=== PATIENT | male | born 1935 | race Caucasian/White ===

== ENCOUNTER 2018-07-31 05:48 | Inpatient (IN) | payer MEDICARE, SELFPAY ==
[2018-07-04 09:49] VITALS: BMI 27.8
[2018-07-31] VITALS (22 sets, daily range): BP systolic 116–150; BP diastolic 52–77; PULSE 84–105; RESP 10–18; TEMP 36.4–36.8; O2SAT 90–96; BMI 27.8
--- NOTE | 2018-07-31 | DI.RAD.S_ITS ---
PROCEDURE: XR LUMBAR SPINE 2-3V INDICATIONS: L2-3 , L3-4 TLIF,. TECHNIQUE: 5 intraoperative views of the lumbar spine were acquired. COMPARISON: CT lumbar spine dated 05/28/18. FINDINGS: Bones: 5 [id number] vertebrae are present. There postoperative changes from posterior spinal fusion of L2-3 through L5-S1 with spinal rods and pedicular screws. Interbody graft noted at L4-5 and L5-S1. Interbody spacers are noted at L2-3 and L3-4. Laminectomies of the mid and lower lumbar spine are noted. No evidence for acute compression fractures or suspicious intraosseous lesions. Soft tissues: No suspicious soft tissue abnormalities. IMPRESSION: Status post posterior spinal fusion of L2-3 through L5-S1. Dictated by: Ricki Thomason M.D. on 07/31/2018 at 13:03 Approved by: Ricki Thomason M.D. on 07/31/2018 at 13:09
[2018-07-31] MEDS: LACTATED RINGERS 1,000 ML 42 ML IV ×3 (07:05→12:25)
--- NOTE | 2018-07-31 07:41 | PM.PREOP ---
Pre-operative Note Interval Note History & Physical reviewed/Exam performed by Physician: Yes Changes to H&P: No
[2018-07-31 07:43] LABS: Add Manual Diff / Slide Review NO; Basophils Percent Auto 1.1 % (0-2); Eosinophils Percent Auto 4.9 % (2-4); Hematocrit 32.8 % (41-53); Hemoglobin 11.3 g/dL (13.5-17.5); Lymphocytes Percent Auto 15.6 % (25-40); Mean Corpuscular HGB Conc 34.3 % (30-36); Mean Corpuscular Volume 87.5 fL (80-100); Monocytes Percent Auto 14.6 % (3-14); Neutrophils Absolute Auto 7800 /uL (1500-7000); Neutrophils Percent Auto 63.8 % (50-75); Platelet Count 247 X10^3/uL (150-400); Red Blood Cell Count 3.75 X10^6/uL (4.5-5.9); Red Cell Distribution Width 13.2 % (11.6-14.8); White Blood Cell Count 12.1 X10^3/uL (4.5-11.0)
[2018-07-31] MEDS: CEFAZOLIN 2 GM/100 ML FROZ.PIGGY IV ×3 (08:14→23:28)
--- NOTE | 2018-07-31 08:36 | SUR.OPER ---
Prone on spine table, head in foam head support, padded chest and pelvic supports, gel pad at knees, lower legs supported by pillows; nipples, genitalia and toes free of pressure, arms secured on foam padded arm boards at <90 degrees abduction. Tape over blanket at thigh secured to table.
[2018-07-31] MEDS: BUPIVACAINE 0.25% W/ EPI VIAL 50 ML INJ (08:49)
[2018-07-31] MEDS: BUPIVACAINE LIPOSOME 266 MG/20 ML VIAL INJ (09:28)
[2018-07-31] MEDS: ACETAMINOPHEN IV 1,000 MG/100 ML VIAL 400 MG IV (11:00)
--- NOTE | 2018-07-31 12:15 | P.OP_ITS ---
Operative Date/Time/Diagnoses Date of procedure: 07/31/18 Time of procedure: 08:00 Pre-op diagnosis: 1. Hx of L4-S1 TLIF with pseudoarthrosis 2. L2-S1 spinal stenosis 3. L2-S1 spondylosis with radiculopathy 4. Lumbar scoliosis Post-op diagnosis: same Procedure & Clinicians Procedure: 1. L4-S1 posterior segmental instrumentation removal 2. L2-3, L3-4 transforamenal interbody fusion 3. L2-3, L3-4 interbody cage placement 4. L4-5, L5-S1 posterolateral fusion 5. L2-S1 posterior segmental instrumentation with pedicle screw placement in L2 , L3, L4, L5, S1. 6. L4-5, L5-S1 hemilaminectomy 7. Utilization of microsurgical technique and operating microscope Same procedure as scheduled: Yes Indications: Patient has been having chronic back pain and worsening lumbar radiculopathy. Patient had prior lumbar fusion with instrumentation within the surgeon. Patient did not have significant pain relief since surgery. Patient has been having progressively worsening pain and weakness in his legs. Patient failed multiple conservative management with worsening pain weakness and numbness in her lower extremity. Patient has been having difficulty performing activity of daily living. After discussing risks benefits of treatment options, patient elected proceed with surgery. Surgeon: Alyse Gallo Workers' Compensation Claims Examiner: Izabella Armstrong Click Yes if Unassisted: No Anesthesia Type: General Operative Notes Closure Type: primary Specimen(s): none sent Implants & Drains: Globus revolve screws, Rise cages Applied: catheter Estimated Blood Loss (mL): 400 Blood products transfused: none Procedure in detail: Patient was seen in the preoperative area. Risks and benefits of the surgery was discussed with the patient. Informed consent was obtained from the patient and placed in the chart. Surgical site was marked. Patient was taken to the operative room. General anesthesia was administered. Prophylactic antibiotic was given to the patient less than 30 min before the incision was made. Patient was placed into a prone position on the John table. Patient's back was then prepped and draped in the sterile fashion. Time- out was performed at this time. A paramedian incision was made over the L4-S1 interval on the right side on after marking patient's skin under C-arm guidance. Fascia was incised in line with skin incision. Patient's previously placed hardware over the L4-S1 level was identified by dissecting down to the level the hardware using a Bovie and a Cantrell. The locking caps which was removed using globus screwdriver. The locking isatu was then removed from the tulips of the pedicle screws using a Enzo. The pedicle screws were then removed using the screwdriver. The screws was found to have good purchase. Using AP and lateral C-arm imaging the interval between L2-3, L3-4 was identified and marked on patient's back. A 4 inch incision 2 in from midline was made on the right side first extending from the earlier incision from the hardware removal. The fascia was incised in line with skin incision. Globus MARS retractors was placed inside the incision and docked onto the L2, L3 lamina. Using microsurgical technique and operating microscope, a L2, L3 laminectomy and L2-3, L3-4 facetectomy was performed using a Kerrison rongeur. The disc space at L2-3, L3-4 was identified. And a total diskectomy was performed at L2-3, L3-4 level. The endplates were decorticated using a rasp and shaver. The total diskectomy and decortication was performed at L2-3, L3-4 level in order to to accomplish a L2-3, L3-4 fusion. The local bone from the laminectomy and facetectomy was saved for local bone grafting. After the total diskectomy and decortication was completed, Bio4 bone graft material was combined with local bone that was harvested earlier. At this time, a separate skin is incision was made over the iliac crest. The bone grafting material was placed into the L2-3, L3-4 interbody space along with two cages, one expandable cage at each level. The cages were expanded to their maximum height using the torque limiting screwdriver. Using microsurgical technique and operative microscope a hemilaminectomy was performed L4-5,L5-S1 level by removing the scar tissue, removing additional bone spurs to decompress the neural foramen and lateral recess at L4-5 L5-S1 level. The previous fused level was explored visible motion was identified after the hardware is removed confirming a pseudoarthrosis. Decision was made to perform posterolateral fusion L4-5 L5-S1 level. During the process of performing a hemilaminectomy at L4-5-L5-S1 level a small durotomy was created at L4-5 level. A DuraGen was placed over the durotomy and no CSF was visualized after the DuraGen was placed. At this time a mirror image incision was made on the left side. The hardware was exposed on the left side the same way as the right side. The hardware placed at L4-5 L5-S1 level on the left side was removed using the same technique as the right side using the [employer] screwdrivers. The hardware was removed from the left side without any difficulty. The fascia was incised in line with the skin incision. Globus MARS retractor was inserted and docked onto the L2-3, L3-4, L4-5, L5-S1 posterolateral gutter. Using the power drill, posterior-lateral decortication was performed at L2-3, L3-4,L4-5, L5-S1 level until bleeding cortical bone was identified. The remaining bone grafting material was placed into the L2-3, L3-4,L4-5 L5-S1 posterior lateral gutter he order to accomplish posterolateral fusion at the L2-3, L3-4,L4-5 L5-S1 levels. Using the double C-arm technique, pedicle screws were placed into the L2, L3, L4 , L5, S1 pedicles bilaterally. This was done by placing the Jamshidi needle into the pedicles, then placing the guidewires over the Jamshidi needle, and finally placing the cannulated screws over the guidewires bilaterally. After the pedicle screws were placed, 2 titanium rods was locked into the heads of the pedicle screws using locking caps and torque limiting screwdriver. Total 10 pedicles screws were placed. After all the hardware was placed, and confirmed with AP and lateral C-arm imaging, the wound was then irrigated with sterile normal saline and packed with Ray-Ulices gauze for 3 min to accomplish hemostasis. After the gauze was removed the deep fascia was closed with #1 Vicryl suture. The subcutaneous layer was closed with 2-0 Vicryl. The skin was closed with skin treasure. Patient tolerated the procedure well. There were no complications. Complications: none Condition: stable Disposition: Acute Care Plan for aftercare: Admit to inpatient hospital
--- NOTE | 2018-07-31 12:35 | SUR.PHASEI ---
Pt arrived with nasal trumpet in mouth for airway patency, now out, pt sedated but responding WNL
[2018-07-31] MEDS: MORPHINE 10 MG/ML INJ 4 MG IV ×2 (12:47→12:53)
--- NOTE | 2018-07-31 13:09 | SUR.PHASEI ---
Pt remaining on back per Dr Gallo, feet raised, HOB flat. Pt awakes c/o of 10/10 pain, medicated with morphine, no c/o itchhing. Then goes baclk to sleep, pain down to 7/10 when wakeful, with eyes closed pt is relaxed, RR 10-14.
[2018-07-31] MEDS: MORPHINE 10 MG/ML INJ 2 MG IV (13:15)
--- NOTE | 2018-07-31 13:17 | SUR.PHASEI ---
Report attempted, RN not available for report, to call back when not busy.
--- NOTE | 2018-07-31 13:31 | CM.DANOTE ---
DCP: Case received, EMR reviewed, and white board updated in patient's room with discharge planning number. Patient in surgery at this time, information obtained from , Siddharth, via phone. DCP template completed with information currently available. Patient is an 83 year old male who admitted early this morning to the care of the hospitalist team. PCP: Nataliya Mejia. Payer: confirmed: Medicare/[employer]. Patient came to hospital for surgical procedure. L2-3, L4-5, Sacral, fusion. Patient has had history of low back pain, which has caused right leg weakness. Spoke to , Siddharth, via phone, since patient has been in surgery most of the day. They both live in [place]. She stated that patient is active, she stated, more so than she is. She also stated that patient has had this chronic back pain which has radiated to his leg. Stated that he has not had to use a walker or cane, and has walked independently. Stated that he may need a walker now. Let her know that physical therapy will work with him when stable, and walker can be ordered for him upon discharge if this is what he needs. P: DCP to continue to follow closely. Will have to evaluate how patient does after surgery, and how he is doing with physical therapy team as well, to note if patient will have any needs other than home. Eva Saucedo RN/Pharmaceutical Compounding Supervisor
--- NOTE | 2018-07-31 13:51 | SUR.PHASEI ---
Carol returned call, report given, pt transported up to room 206 on 2/l nasal cannula and left in stable condition.
[2018-07-31] MEDS: SODIUM CHLORIDE 0.9% 1,000 ML 100 ML IV ×2 (14:49→23:28)
--- NOTE | 2018-07-31 15:24 | PC.ADMIT ---
Admission Note: Arrived to room 206 at 1340 via bed from PACU. Drowsy but wakens to voice and is able to answer a few questions before falling back asleep. , Siddharth, at bedside. Dressing to back is C/D/I. Oxygen sats 93-95% on 3L NC, RR 10-14 bpm. Pt laying flat due to dural tear. CMS intact to BLEs. Chronic bermeo in place with clear yellow urine draining. Oriented to room and to call light/tv.bed controls. Bed alarm on. The patient,Edgardo Cotter,83 y/o, was given written information regarding hospital policies, unit procedures and contact persons. Patient's smoking status: Former smoker. Vital Signs - 8 hr 07/31/18 12:09 07/31/18 12:16 07/31/18 12:18 Temperature 98.2 F Pulse Rate 87 87 86 Respiratory Rate 12 12 12 Blood Pressure 133/57 L 116/52 L 120/56 L Pulse Oximetry 92 92 92 07/31/18 12:24 07/31/18 12:29 07/31/18 12:33 Temperature Pulse Rate 87 87 95 H Respiratory Rate 12 11 L 12 Blood Pressure 123/53 L 126/56 L 131/62 Pulse Oximetry 92 92 94 07/31/18 12:44 07/31/18 12:50 07/31/18 12:54 Temperature 98.1 F Pulse Rate 96 H 93 H 93 H Respiratory Rate 14 12 11 L Blood Pressure 148/74 H 125/62 150/77 H Pulse Oximetry 93 93 94 07/31/18 12:59 07/31/18 13:04 07/31/18 13:13 Temperature Pulse Rate 93 H 91 H 96 H Respiratory Rate 10 L 12 12 Blood Pressure 139/64 143/66 H 136/72 Pulse Oximetry 92 94 93 07/31/18 13:15 07/31/18 13:18 07/31/18 13:24 Temperature 98.1 F 98.1 F Pulse Rate 94 H 94 H Respiratory Rate 12 11 L Blood Pressure 138/67 149/71 H Pulse Oximetry 93 94 07/31/18 13:40 07/31/18 14:40 Temperature 97.5 F L Pulse Rate 97 H 98 H Respiratory Rate 14 12 Blood Pressure 144/76 H 118/59 L Pulse Oximetry 95 95
--- NOTE | 2018-07-31 15:48 | PT.IPTN ---
Current Diagnoses Other spondylosis with radiculopathy, lumbar region (07/31/18) Spinal stenosis, lumbar region without neurogenic claudication (07/31/18) Arthrodesis status (07/31/18) Surgery Performed Operation Date: 07/31/18 07:45 Actual Procedures p L2-3,L3-4 TLIF - L4-5,L5-S1 HWR & exploration of fusion, L2-S1 PSF w/Instru - Alyse Gallo MD Operation Date: 07/31/18 07:45 <No data on this case meets the specified criteria> Physical Therapy Treatment Note M3 PT-IP Subjective Start: 07/31/18 15:46 Freq: NEEDED Status: Active Protocol: Document 07/31/18 15:47 AB (Rec: 07/31/18 15:48 AB [id number]) Subjective Physical Therapy Visit Type Notes received PT eval order but pt is not ready for PT at this time. per doctor's order: pt is on bed rest. lay flat until 7am tomorrow. per nurse 's note: pt has a dural tear. will f/u tomorrow.
[2018-07-31] MEDS: OXYCODONE IR 5 MG TABLET 10 MG PO ×3 (16:34→23:27)
[2018-07-31] MEDS: MORPHINE 2 MG/ML INJ 1 MG IV (18:17)
[2018-07-31] MEDS: ATORVASTATIN 20 MG TABLET 40 MG PO (19:53)
[2018-07-31] MEDS: DOCUSATE 100 MG CAPSULE PO (19:53)
[2018-07-31] MEDS: METOPROLOL IR 50 MG TABLET PO (19:53)
[2018-07-31] MEDS: SENNOSIDES 8.6 MG TABLET 17.2 MG PO (19:53)
[2018-07-31] MEDS: VENLAFAXINE 37.5 MG TABLET PO (19:54)
[2018-07-31] MEDS: LOSARTAN 50 MG TABLET PO (19:54)
[2018-07-31] MEDS: LORazepam 1 MG TABLET PO (23:28)
[2018-08-01] VITALS (8 sets, daily range): BP systolic 106–139; BP diastolic 59–70; PULSE 69–112; RESP 14–20; TEMP 36.8–37.2; O2SAT 89–95
[2018-08-01] MEDS: hydrOXYzine pamoate 25 MG CAPSULE PO ×4 (02:22→20:47)
[2018-08-01] MEDS: OXYCODONE IR 5 MG TABLET 10 MG PO ×7 (02:23→23:46)
[2018-08-01 05:49] LABS: Hemoglobin 9.7 g/dL (13.5-17.5)
--- NOTE | 2018-08-01 07:59 | PM.PNPO.1 ---
Subjective Date Patient Seen: 08/01/18 Time Patient Seen: 07:59 Interval history: Hospital day 2, postop day 1 following L4 through S1 hardware removal, L2-3, L3-4 TLIF, L4 through S1 hemilaminectomy and posterior fusion, L2 through S1 posterior screws by Dr. Gallo. Patient did have a dural tear and was to be flat until 0700 today. No headache. Pain controlled with oxycodone and 1 dose MS IV. Patient does have a chronic Andres catheter in place for urine incontinence secondary to prostate cancer. He has not had any physical therapy yet. Exam Vital Signs (past 8 hours): - 08/01/18 00:00 08/01/18 04:58 Temperature 98.3 F 98.4 F Pulse Rate 112 H 100 H Respiratory Rate 20 20 Blood Pressure 127/60 139/70 Pulse Oximetry 95 95 Oxygen Delivery Method Room Air Oxygen Flow Rate 2 Narrative Exam Narrative: Alert, oriented in no acute distress lying in bed. Back. Dressing to lumbar area is dry except central area of serosanguineous drainage. Legs. No calf pain or swelling. Pulses and sensation symmetrical. Objective Labs Result Diagrams: 08/01/18 05:33 Labs: Laboratory Results - last 24 hr 08/01/18 05:33 Hgb 9.7 L Hct 28.0 L Assessment & Plan Post-op (1) Chronic indwelling Andres catheter: Current Visit: Yes Status: Acute Postoperative Procedures Operation Date: 07/31/18 07:45 Actual Procedures Side Surgeon p L2-3,L3-4 TLIF - L4-5,L5-S1 HWR & exploration of fusion, L2-S1 PSF w/Instru Alyse Gallo MD Operation Date: 07/31/18 07:45 <No data on this case meets the specified criteria> patient will be allowed to be up today. He will begin working with physical therapy. Dressing change to lumbar area if needed. I anticipate discharge home in the next 1-2 days if stable. Recheck H&H tomorrow morning. Quality VTE Deep Vein Thrombosis/Pulmonary Embolism Present on Admission: No
[2018-08-01] MEDS: LORazepam 1 MG TABLET PO (08:46)
[2018-08-01] MEDS: DOCUSATE 100 MG CAPSULE PO ×2 (08:47→20:46)
[2018-08-01] MEDS: LOSARTAN 50 MG TABLET PO ×2 (08:47→20:46)
[2018-08-01] MEDS: METOPROLOL IR 50 MG TABLET PO ×2 (08:47→20:46)
[2018-08-01] MEDS: VENLAFAXINE 37.5 MG TABLET PO ×2 (08:47→20:47)
[2018-08-01] MEDS: ACETAMINOPHEN 325 MG TABLET 650 MG PO (08:48)
--- NOTE | 2018-08-01 10:20 | PT.IPTN ---
Current Diagnoses Other spondylosis with radiculopathy, lumbar region (07/31/18) Spinal stenosis, lumbar region without neurogenic claudication (07/31/18) Personal history of other medical treatment (07/31/18) Arthrodesis status (07/31/18) Surgery Performed Operation Date: 07/31/18 07:45 Actual Procedures p L2-3,L3-4 TLIF - L4-5,L5-S1 HWR & exploration of fusion, L2-S1 PSF w/Instru - Alyse Gallo MD Operation Date: 07/31/18 07:45 <No data on this case meets the specified criteria> Physical Therapy Treatment Note M3 PT-IP Subjective Start: 07/31/18 15:46 Freq: NEEDED Status: Active Protocol: Document 08/01/18 10:20 AB (Rec: 08/01/18 12:58 AB [id number]) Subjective Physical Therapy Visit Type Notes talked to nurse regarding pt's protocol for dural tear. nurse stated that they are still transitioning pt with upright positioning and monitoring for symptoms. will check this afternoon.
[2018-08-01] MEDS: MORPHINE 2 MG/ML INJ 1 MG IV (11:26)
--- NOTE | 2018-08-01 11:29 | PC.NURSE ---
Shift note: activity: gradually raising hob from 30 degrees up by 10 degrees every hour. no dizziness, lightheadedness, headache or nausea. does c/o 6-01/29 pain. has been receiving oxycodone, ativan, vistaril, tylenol and morphine for breakthru pain. neuro: a&o x3. states feels a little loopy still. pleasant and cooperative. cms intact. denies numbness or tingling. foot scd pumps on.
[2018-08-01] MEDS: DEXAMETHASONE 4 MG TABLET 10 MG PO (11:57)
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
[2018-08-01] MEDS: DEXAMETHASONE 4 MG TABLET PO (17:01)
--- NOTE | 2018-08-01 18:57 | PC.NURSE ---
Patient's right side dressing to lower back was moderately saturated but was not leaking yet; this RN reinforced right side with gauze and tegaderm. Patient is resting comfortably in bed, BA active, call light in reach.
[2018-08-01] MEDS: ATORVASTATIN 20 MG TABLET 40 MG PO (20:46)
[2018-08-01] MEDS: SODIUM CHLORIDE 0.9% FLUSH 10 ML IV (20:47)
[2018-08-01] MEDS: SENNOSIDES 8.6 MG TABLET 17.2 MG PO (20:47)
[2018-08-02] VITALS (8 sets, daily range): BP systolic 109–143; BP diastolic 47–70; PULSE 67–84; RESP 14–20; TEMP 36.4–37; O2SAT 91–94
[2018-08-02] MEDS: hydrOXYzine pamoate 25 MG CAPSULE PO ×3 (00:39→09:51)
[2018-08-02] MEDS: DEXAMETHASONE 4 MG TABLET PO ×3 (00:40→11:49)
[2018-08-02] MEDS: LORazepam 1 MG TABLET PO (00:45)
[2018-08-02] MEDS: MAG HYDROX/ALUM/SIMETH 30 ML UDC PO ×2 (00:49→15:31)
--- NOTE | 2018-08-02 04:56 | PC.NURSE ---
Pt is A and O x 4, VSS. LS clear, S1, S2. + BTs, eating and drinking. Voiding qs clear layo. Rates pain consistently 6/10, able to sleep.
[2018-08-02] MEDS: OXYCODONE IR 5 MG TABLET 10 MG PO ×4 (05:29→14:51)
[2018-08-02] MEDS: MORPHINE 2 MG/ML INJ 1 MG IV ×2 (05:46→20:45)
[2018-08-02 06:23] LABS: Hematocrit 26.6 % (41-53); Hemoglobin 9.2 g/dL (13.5-17.5)
--- NOTE | 2018-08-02 06:39 | PC.NURSE ---
Called to have chicken boner Dr. Andersen paged re pt's WBC which doubled in last 24 hours to 25K from 12.1K.
[2018-08-02 06:53] LABS: Mean Corpuscular HGB Conc 34.6 % (30-36); Mean Corpuscular Hemoglobin 30.6 PG (26-34); Mean Corpuscular Volume 88.6 fL (80-100); Platelet Count 200 X10^3/uL (150-400); White Blood Cell Count 25.1 X10^3/uL (4.5-11.0)
[2018-08-02 06:55] LABS: Add Manual Diff / Slide Review YES
[2018-08-02 07:00] LABS: Neutrophils Absolute Manual 22339 /uL (3000-5900); Total Cells Counted 100
[2018-08-02 07:01] LABS: RBC Morphology Normal Morphology
[2018-08-02 07:42] LABS: Add Manual Diff / Slide Review NO; Basophils Percent Auto 0.4 % (0-2); Hematocrit 26.6 % (41-53); Hemoglobin 9.1 g/dL (13.5-17.5); Lymphocytes Percent Auto 3.6 % (25-40); Mean Corpuscular HGB Conc 34.1 % (30-36); Mean Corpuscular Hemoglobin 29.9 PG (26-34); Mean Corpuscular Volume 87.7 fL (80-100); Monocytes Percent Auto 8.5 % (3-14); Neutrophils Absolute Auto 21800 /uL (1500-7000); Neutrophils Percent Auto 87.5 % (50-75); Platelet Count 205 X10^3/uL (150-400); Red Blood Cell Count 3.03 X10^6/uL (4.5-5.9)
--- NOTE | 2018-08-02 07:57 | PM.PNPO.1 ---
Subjective Date Patient Seen: 08/02/18 Time Patient Seen: 07:57 Interval history: Hospital day 3, postop day 2 following L4 through S1 HWR, L2-3 L3-4 TLIF, L4 through S1 hemilaminectomy and posterior fusion, L2 through S1 posterior screw fixation with dural leak. Patient has chronic Andres catheter for urine incontinence following prostate surgery. Pain is improved. He was started on dexamethasone yesterday which has helped. Hemoglobin and hematocrit had dropped again today. WBC [id number]. Patient is afebrile. Pain control with oxycodone 10 mg. Has worked with PT/OT and improving. Patient feels tentative about being discharged home today. Exam Vital Signs (past 8 hours): - 08/02/18 00:35 08/02/18 06:15 Temperature 98.3 F 98.2 F Pulse Rate 74 84 Respiratory Rate 16 16 Blood Pressure 109/47 L 133/63 Pulse Oximetry 91 94 Oxygen Delivery Method Room Air Oxygen Flow Rate 0 Narrative Exam Narrative: Alert, oriented no acute distress lying in bed. Back. Dressing to the lumbar area is reinforced and is dry without drainage or inflammation. Legs. No calf pain or swelling. Pulses symmetrical. Good sensation to touch the lower legs. Objective Labs Result Diagrams: 08/02/18 07:30 Labs: Laboratory Results - last 24 hr 08/02/18 08/02/18 06:02 07:30 WBC 25.1 H D 25.0 H RBC 3.00 L 3.03 L Hgb 9.2 L 9.1 L Hct 26.6 L 26.6 L MCV 88.6 87.7 MCH 30.6 29.9 MCHC 34.6 34.1 RDW 13.0 13.0 Plt Count 200 205 Neut % (Auto) Not Reportable 87.5 H Lymph % (Auto) Not Reportable 3.6 L [place] % (Auto) Not Reportable 8.5 Eos % (Auto) Not Reportable 0.0 L Baso % (Auto) Not Reportable 0.4 Neut # (Auto) [id number] H Total Counted 100 Seg Neutrophils % 86.0 H Band Neutrophils % 3.0 Lymphocytes % (Manual) 3.0 L Monocytes % (Manual) 8.0 Neutrophils # (Manual) [id number] H RBC Morphology Normal morphology Assessment & Plan Post-op Postoperative Procedures Operation Date: 07/31/18 07:45 <No data on this case meets the specified criteria> Operation Date: 07/31/18 07:45 Actual Procedures Side Surgeon p L2-3,L3-4 TLIF - L4-5,L5-S1 HWR & exploration of fusion, L2-S1 PSF w/Instru Alyse Gallo MD Plan: Will check CBC this morning to re-evaluate his work WBC and H&H. I think this may be related to his steroid use and postoperative inflammation. He will work with PT more today. Anticipate discharge home tomorrow if he is stable. Quality VTE Deep Vein Thrombosis/Pulmonary Embolism Present on Admission: No
--- NOTE | 2018-08-02 08:01 | P.PN_ITS ---
Subjective Date Patient Seen: 08/02/18 Time Patient Seen: 07:57 Interval history: Hospital day 3, postop day 2 following L4 through S1 HWR, L2- 3 L3-4 TLIF, L4 through S1 hemilaminectomy and posterior fusion, L2 through S1 posterior screw fixation with dural leak. Patient has chronic Andres catheter for urine incontinence following prostate surgery. Pain is improved. He was started on dexamethasone yesterday which has helped. Hemoglobin and hematocrit had dropped again today. WBC [id number]. Patient is afebrile. Pain control with oxycodone 10 mg. Has worked with PT/OT and improving. Patient feels tentative about being discharged home today. Exam Vital Signs (past 8 hours): - 08/02/18 00:35 08/02/18 06:15 Temperature 98.3 F 98.2 F Pulse Rate 74 84 Respiratory Rate 16 16 Blood Pressure 109/47 L 133/63 Pulse Oximetry 91 94 Oxygen Delivery Method Room Air Oxygen Flow Rate 0 Narrative Exam Narrative: Alert, oriented no acute distress lying in bed. Back. Dressing to the lumbar area is reinforced and is dry without drainage or inflammation. Legs. No calf pain or swelling. Pulses symmetrical. Good sensation to touch the lower legs. Objective Labs Result Diagrams: 08/02/18 07:30 Labs: Laboratory Results - last 24 hr 08/02/18 08/02/18 06:02 07:30 WBC 25.1 H D 25.0 H RBC 3.00 L 3.03 L Hgb 9.2 L 9.1 L Hct 26.6 L 26.6 L MCV 88.6 87.7 MCH 30.6 29.9 MCHC 34.6 34.1 RDW 13.0 13.0 Plt Count 200 205 Neut % (Auto) Not Reportable 87.5 H Lymph % (Auto) Not Reportable 3.6 L [place] % (Auto) Not Reportable 8.5 Eos % (Auto) Not Reportable 0.0 L Baso % (Auto) Not Reportable 0.4 Neut # (Auto) [id number] H Total Counted 100 Seg Neutrophils % 86.0 H Band Neutrophils % 3.0 Lymphocytes % (Manual) 3.0 L Monocytes % (Manual) 8.0 Neutrophils # (Manual) [id number] H RBC Morphology Normal morphology Assessment & Plan Post-op Postoperative Procedures Operation Date: 07/31/18 07:45 <No data on this case meets the specified criteria> Operation Date: 07/31/18 07:45 Actual Procedures Side Surgeon p L2-3,L3-4 TLIF - L4-5,L5-S1 HWR & exploration of fusion, L2-S1 PSF w/Instru Alyse Gallo MD Plan: Will check CBC this morning to re-evaluate his work WBC and H&H. I think this may be related to his steroid use and postoperative inflammation. He will work with PT more today. Anticipate discharge home tomorrow if he is stable. Quality VTE Deep Vein Thrombosis/Pulmonary Embolism Present on Admission: No
[2018-08-02] MEDS: LOSARTAN 50 MG TABLET PO (08:38)
[2018-08-02] MEDS: SODIUM CHLORIDE 0.9% FLUSH 10 ML IV ×2 (08:38→21:22)
[2018-08-02] MEDS: hydroCHLOROthiazide 12.5 MG CAPSULE PO (08:38)
[2018-08-02] MEDS: METOPROLOL IR 50 MG TABLET PO (08:38)
[2018-08-02] MEDS: PANTOPRAZOLE 20 MG TABLET PO (08:38)
[2018-08-02] MEDS: VENLAFAXINE 37.5 MG TABLET PO (08:38)
[2018-08-02] MEDS: DOCUSATE 100 MG CAPSULE PO (08:39)
--- NOTE | 2018-08-02 10:28 | PC.NURSE ---
shift note: a&o, rates pain 6/10, able to logroll w/ min assist to sitting position this am. stands easily. transferred to recliner this am for breakfast. tolerated well. drsg w/ scant shadow drainage.
--- NOTE | 2018-08-02 11:25 | PT.IPTN ---
Current Diagnoses Other spondylosis with radiculopathy, lumbar region (07/31/18) Spinal stenosis, lumbar region without neurogenic claudication (07/31/18) Personal history of other medical treatment (07/31/18) Arthrodesis status (07/31/18) Surgery Performed Operation Date: 07/31/18 07:45 <No data on this case meets the specified criteria> Operation Date: 07/31/18 07:45 Actual Procedures p L2-3,L3-4 TLIF - L4-5,L5-S1 HWR & exploration of fusion, L2-S1 PSF w/Instru - Alyse Gallo MD Physical Therapy Treatment Note M2 PT-IP Current Condition Start: 07/31/18 15:46 Freq: NEEDED Status: Active Protocol: Document 08/01/18 13:20 AB (Rec: 08/01/18 15:56 AB [id number]) Physical Therapy Current Condition Current Condition Evaluation Date 08/01/18 Treatment Diagnosis s/p L2-4 TLIF, difficulty in walking Onset Date 07/31/18 Precautions Lumbar Precautions Log Roll No Twisting Limit Bending Lifting Restriction of 10 lbs Gait Belt above Incisional Area M3 PT-IP Subjective Start: 07/31/18 15:46 Freq: NEEDED Status: Active Protocol: Document 08/02/18 11:25 GGD (Rec: 08/02/18 11:57 GGD [email or web address]) Subjective Physical Therapy Visit Type Type Treatment Note Visit Start Time 11:00 Visit Stop Time 11:25 Total Visit Minutes 25 Number of POLITICAL REPORTER Visits 1 Physical Therapy Visit Comments Patient Comments Pt states he is doing better today. Therapy Pain Assessment Pain When Pain Assessed At Rest Pain Present Pain Present Pain Reported Location Lower Back Intensity 6 Scale Used Numeric (1 - 10) Pain Management Techniques Apply Cold Re-positioning Timing of Activity with Medications M4 PT-IP Mobility and Gait Start: 07/31/18 15:46 Freq: NEEDED Status: Active Protocol: Document 08/02/18 11:25 GGD (Rec: 08/02/18 11:57 GGD [email or web address]) PT-Bed Mobility Assessment Rolling Type of Rolling Log Rolling Level of Assist Contact Guard Assistance Supine to Sit Supine to Sit Contact Guard Assistance 1 Person Assistance Bedrails Sit to Supine Sit to Supine Contact Guard Assistance 1 Person Assistance Bedrails Scooting Scooting to Edge of Bed Standby Assistance PT-Transfer Assessment Sit to and From Stand Sit to and from Stand Contact Guard Assistance Use of Upper Extremities Equipment Transfer Assistive Device Gait Belt Front Wheeled Walker Orthotic/Prosthetic Devices or Brace: No Transfers Transfer Destination Bed Transfer Ability Level of Assist Contact Guard Assistance Use of Upper Extremities Gait Assessment Gait Gait Assistance Required: Contact Guard Assist Distance (Feet) 1,000 Able to Maintain Weight Bearing Status Yes During Gait Assistive Devices Assistive Device Gait Belt Front Wheeled Walker Orthotic/Prosthetic Devices or Brace: No Gait Deviations General Gait Pattern Antalgic Decreased Stride Length Decreased Feet Clearance Step-to Gait Factors Limiting Gait Function Factors Limiting Gait Function Decreased Activity Tolerance Decreased Strength Pain M5 PT-IP Objective Assessments Start: 07/31/18 15:46 Freq: NEEDED Status: Active Protocol: Document 08/01/18 13:20 AB (Rec: 08/01/18 15:56 AB [id number]) Orientation Orientation/Cognition Level of Alertness Alert Orientation Name Age Birthday Month Date Year Day of Week Place Situation Gross Range of Motion Lower Extremity ROM Assessment Within Functional Limits Strength Lower Extremity Strength Assessment Left Impaired Hip 3+/5 Knee 3+/5 Sensation Assessment Sensation Gross Sensation WNL M6 PT-IP Treatment Start: 07/31/18 15:46 Freq: NEEDED Status: Active Protocol: Document 08/02/18 11:25 GGD (Rec: 08/02/18 11:57 GGD [email or web address]) Physical Therapy Treatment Education Education Provided Precautions Post-Op Packet M7 PT-IP Assessment and Plan Start: 07/31/18 15:46 Freq: NEEDED Status: Active Protocol: Document 08/02/18 11:25 GGD (Rec: 08/02/18 11:57 GGD [email or web address]) PT Summary Assessment and Plan Summary Assessment Summary Pt improving with mobility. He needed less assist with bed mobility. He was able to progress gait distance with good pain control. He safe for home D/C when medically stable. Frequency of Treatment Frequency Of Treatment Twice a Day Treatment Plan Other Recommendations and Next Treatment ambulation, stair climbing Focus Recommendations To Nursing Amount of Assist Needed 1 Person Assist Discharge Recommendations PT Discharge Recommendations Home with Assistance Equipment Needed for Home Before FWW Discharge
--- NOTE | 2018-08-02 13:50 | PT.IPTN ---
Current Diagnoses Other spondylosis with radiculopathy, lumbar region (07/31/18) Spinal stenosis, lumbar region without neurogenic claudication (07/31/18) Personal history of other medical treatment (07/31/18) Arthrodesis status (07/31/18) Surgery Performed Operation Date: 07/31/18 07:45 <No data on this case meets the specified criteria> Operation Date: 07/31/18 07:45 Actual Procedures p L2-3,L3-4 TLIF - L4-5,L5-S1 HWR & exploration of fusion, L2-S1 PSF w/Instru - Alyse Gallo MD Physical Therapy Treatment Note M2 PT-IP Current Condition Start: 07/31/18 15:46 Freq: NEEDED Status: Active Protocol: Document 08/01/18 13:20 AB (Rec: 08/01/18 15:56 AB [id number]) Physical Therapy Current Condition Current Condition Evaluation Date 08/01/18 Treatment Diagnosis s/p L2-4 TLIF, difficulty in walking Onset Date 07/31/18 Precautions Lumbar Precautions Log Roll No Twisting Limit Bending Lifting Restriction of 10 lbs Gait Belt above Incisional Area M3 PT-IP Subjective Start: 07/31/18 15:46 Freq: NEEDED Status: Active Protocol: Document 08/02/18 13:50 GGD (Rec: 08/02/18 14:16 GGD [email or web address]) Subjective Physical Therapy Visit Type Type Treatment Note Visit Start Time 13:20 Visit Stop Time 13:50 Total Visit Minutes 30 Number of SERVICES DELIVERY DRIVER Visits 2 Physical Therapy Visit Comments Patient Comments Pt states that he would like to walk. Therapy Pain Assessment Pain When Pain Assessed At Rest Pain Present Pain Present Pain Reported Location Lower Back Intensity 4 Scale Used Numeric (1 - 10) Pain Management Techniques Apply Cold Re-positioning Timing of Activity with Medications M4 PT-IP Mobility and Gait Start: 07/31/18 15:46 Freq: NEEDED Status: Active Protocol: Document 08/02/18 13:50 GGD (Rec: 08/02/18 14:16 GGD [email or web address]) PT-Bed Mobility Assessment Rolling Type of Rolling Log Rolling Level of Assist Contact Guard Assistance Supine to Sit Supine to Sit Contact Guard Assistance 1 Person Assistance Bedrails Sit to Supine Sit to Supine Contact Guard Assistance 1 Person Assistance Bedrails Scooting Scooting to Edge of Bed Standby Assistance PT-Transfer Assessment Sit to and From Stand Sit to and from Stand Contact Guard Assistance Use of Upper Extremities Equipment Transfer Assistive Device Gait Belt Front Wheeled Walker Orthotic/Prosthetic Devices or Brace: No Transfers Transfer Destination Bed Transfer Ability Level of Assist Contact Guard Assistance Use of Upper Extremities Gait Assessment Gait Gait Assistance Required: Contact Guard Assist Distance (Feet) 1,000 Able to Maintain Weight Bearing Status Yes During Gait Assistive Devices Assistive Device Gait Belt Front Wheeled Walker Orthotic/Prosthetic Devices or Brace: No Gait Deviations General Gait Pattern Antalgic Decreased Stride Length Decreased Feet Clearance Step-to Gait Factors Limiting Gait Function Factors Limiting Gait Function Decreased Activity Tolerance Decreased Strength Pain Stair Climbing Assessment Evaluation Level of Assist On Stairs Contact Guard Assistance Devices Stair Climbing Assistive Devices Front Wheel Walker Technique/Endurance Stair Climbing Direction Ascend and Descend Stair Climbing Technique Step to Step Number of Steps Climbed 1 Query Text: Stair Climbing Set # Repetitions (reps) 2 Comments Stair Climbing Comments Pt needed min cues. M5 PT-IP Objective Assessments Start: 07/31/18 15:46 Freq: NEEDED Status: Active Protocol: Document 08/01/18 13:20 AB (Rec: 08/01/18 15:56 AB [id number]) Orientation Orientation/Cognition Level of Alertness Alert Orientation Name Age Birthday Month Date Year Day of Week Place Situation Gross Range of Motion Lower Extremity ROM Assessment Within Functional Limits Strength Lower Extremity Strength Assessment Left Impaired Hip 3+/5 Knee 3+/5 Sensation Assessment Sensation Gross Sensation WNL M6 PT-IP Treatment Start: 07/31/18 15:46 Freq: NEEDED Status: Active Protocol: Document 08/02/18 13:50 GGD (Rec: 08/02/18 14:16 GGD [email or web address]) Physical Therapy Treatment Education Education Provided Precautions M7 PT-IP Assessment and Plan Start: 07/31/18 15:46 Freq: NEEDED Status: Active Protocol: Document 08/02/18 13:50 GGD (Rec: 08/02/18 14:16 GGD [email or web address]) PT Summary Assessment and Plan Summary Assessment Summary Pt improving with mobility. He did need cues for full log roll technique. He improved stability with gait with FWW. He needed min cues for stair mobility. He safe for home D/C when medically stable. Frequency of Treatment Frequency Of Treatment Twice a Day Treatment Plan Physical Therapy Treatment Plan Bed Mobility Training Transfer Training Gait Training Therapeutic Exercise Balance Retraining Post Op Education Discharge Planning Hot or Cold Pack Neuromuscular Re-ed Coordination Retraining Manual Therapy Recommendations To Nursing Amount of Assist Needed 1 Person Assist Discharge Recommendations PT Discharge Recommendations Home with Assistance Equipment Needed for Home Before FWW Discharge
--- NOTE | 2018-08-02 14:58 | OT.IP.TRT ---
Current Diagnoses Other spondylosis with radiculopathy, lumbar region (07/31/18) Spinal stenosis, lumbar region without neurogenic claudication (07/31/18) Personal history of other medical treatment (07/31/18) Arthrodesis status (07/31/18) Surgery Performed Operation Date: 07/31/18 07:45 <No data on this case meets the specified criteria> Operation Date: 07/31/18 07:45 Actual Procedures p L2-3,L3-4 TLIF - L4-5,L5-S1 HWR & exploration of fusion, L2-S1 PSF w/Instru - Alyse Gallo MD Occupational Therapy Treatment Note M2 OT-IP Current Condition Start: 08/01/18 14:24 Freq: Status: Active Protocol: Document 08/01/18 14:25 CCC (Rec: 08/01/18 15:09 [facility] [email or web address]) Occupational Therapy Current Condition Current Condition Evaluation Date 08/01/18 Treatment Diagnosis Lumbar stenosis Diagnosis Onset Date 07/31/17 Post Operative Precautions Lumbar Precautions Log Roll No Twisting Limit Bending Lifting Restriction of 10 lbs Gait Belt above Incisional Area Weight Bearing Status Weight Bearing Status Weight Bear as Tolerated M3 OT- IP Subjective and Pain Start: 08/01/18 14:24 Freq: Status: Active Protocol: Document 08/02/18 14:56 CCC (Rec: 08/02/18 14:58 [facility] [id number]) OT- Subjective Occupational Therapy Visit Type Type Patient Refusal Notes Pt states trying to make calls to get FWW and other equipment prior to discharge, therefore not wanting to be seen today for OT treatment. In addition, pt states would rather shower at home. Therefore to touch base with pt tomorrow prior to going home and also touch base with his family for any caregiver training. M4 OT- IP ADL's Start: 08/01/18 14:24 Freq: Status: Active Protocol: Document 08/01/18 14:25 CCC (Rec: 08/01/18 15:09 [facility] [email or web address]) OT ADL-Grooming General Evaluation Grooming Ability Standby Assistance Areas Needing Assistance Retrieving/Set-up of Grooming Items Comments OT Grooming Comments Pt too tired to be able to stand at the sink and therefore had to sonk in the recliner for all his grooming needs. OT ADL-Oral Care General Eval Oral Care Ability Independent OT ADL-Dressing General Eval Lower Body Dressing Ability Maximum Assistance Areas Needing Assistance Socks Comments OT Dressing Comments Pt needing assist for all LB dressing needs at this time. Showed pt AED for LB dressing needs and to practice more tomorrow. OT ADL-Toileting Comments OT Toileting Comments Pt prior use of leg bag at home, therefore will have to assist for catheter needs. M5 OT- IP IADL's Start: 08/01/18 14:24 Freq: Status: Active Protocol: Document 08/01/18 14:25 [facility] (Rec: 08/01/18 15:09 [facility] [email or web address]) OT-Instrumental Activities of Daily Living Medication Management Medication Management Comments Pt states doesn his own medications. Money Management Money Management Comments Pt states does his own. M6 OT- IP Functional Cognition Start: 08/01/18 14:24 Freq: Status: Active Protocol: Document 08/01/18 14:25 [facility] (Rec: 08/01/18 15:09 [facility] [email or web address]) Cognitive Factors Limiting Selfcare Function Cognitive Ability Level of Alertness Alert Patient Orientation Name Place Situation Attention Span Ability Capable of Focused Attention Capable of Sustained Attention Ability to Follow Commands Able to Follow One Step Commands Memory Description Immediate Intact Door Assembler Intact Cognitive Comments Cognitive Assessment Comments Pt able to follow concrete commands, pt able to recall all back precautions, however wanting reconfirmation if he was doing the movement properly. M7 OT- IP Mobility and Balance Start: 08/01/18 14:24 Freq: Status: Active Protocol: Document 08/01/18 14:25 [facility] (Rec: 08/01/18 15:09 [facility] [email or web address]) OT- Bed Mobility Assessment Rolling Type of Rolling Roll to Left Level of Assistance Minimal Assistance Supine to Sit Supine to Sit Assist Minimal Assistance 1 Person Assistance OT-Transfer Assessment Sit to and From Stand Sit to and from Stand Minimal Assistance Transfers Transfer Ability Minimal Assistance Technique Transfer Destination Chair Transfer Technique Stand Step Pivot Devices Transfer Assistive Devices Gait Belt Front Wheeled Walker Comments Mobility Comments Pt a bit shakey when coming to stand and needing SHASHI, vc to push up from the bed to stand with FWW. Per pt shakey due to increased pain. OT- Balance Assessment Sitting Balance and Reactions Static Sitting Balance Ability Normal Dynamic Sitting Balance Ability Normal Standing Balance and Reactions Static Standing Balance Ability Good M8 OT- IP Objective Assessments Start: 08/01/18 14:24 Freq: Status: Active Protocol: Document 08/01/18 14:25 [facility] (Rec: 08/01/18 15:09 [facility] [email or web address]) OT Gross Range of Motion Upper Extremity Range of Motion Assessment Within Functional Limits OT Strength Comments Strength Comments BUE 5/5 M9 OT- IP Assessment and Plan Start: 08/01/18 14:24 Freq: Status: Active Protocol: Document 08/01/18 14:25 [facility] (Rec: 08/01/18 15:09 [facility] [email or web address]) OT Summary Assessment and Plan Potential Rehabilitation Potential Excellent Analytic Complexity at Evaluation Low Summary OT Impairments Balance Functional Cognition Functional Mobility Grooming Dressing Toileting Bathing Toilet Transfers Shower Transfers Progress Towards Goals Progressing Toward Goals Slow Progress due to Pain Assessment Summary Pt Low complexity and main barrier is pain, decreased activity tolerance and now needing assist SHASHI for bed mobility and transfers and assist for ADL's. Pt's not able to do any lifting however able to assist pt at home. Pending progress, pt looking to go home with to assist at this time. Goals Grooming Goal Independent Dressing Goal Minimal Assistance Toileting Goal Minimal Assistance Bathing Goal Minimal Assistance Toilet Transfer Goal Independent Shower Transfer Goal Standby Assistance Patient/Caregiver Education Goal Demonstrate Post-Op Precautions Caregiver Independent Assisting Patient Days to Meet Goals 4 Frequency of Treatment Frequency Of Treatment Once a Day Treatment Plan OT Treatment Plan ADL Training Functional Cognition Training Functional Mobility Patient/Family Education Discharge Planning Other Treatment Recommendations and Next Stand for grooming, practice Treatment Focus AEd for LB dressing Discharge Recommendations OT Discharge Recommendations Home with Assistance Home Equipment Needs shower chair, HHSP, FWW LB AED
--- NOTE | 2018-08-02 15:22 | CM.DPC ---
DCP/ Patient continues to work with PT/OT. Both recommending home with assistance. Patient to redo labs and possible discharge tomorrow. Plan: Home when stable. CM team available as needed.
[2018-08-02] MEDS: BISACODYL 10 MG SUPP PR (18:44)
--- NOTE | 2018-08-02 20:04 | DI.RAD.S_ITS ---
PROCEDURE: XR ACUTE ABDOMEN SERIES INDICATIONS: abd pain, constipation, history of abd issues TECHNIQUE: One view chest and two views of the abdomen were acquired. COMPARISON: None. FINDINGS: Surgical changes and devices: Thoracolumbar fixation and abdominal clips. Chest: Lungs demonstrate mild increased pulmonary vascularity.. Heart size is normal. No pleural effusions. No pneumoperitoneum. Abdomen: Bowel gas pattern demonstrates dilated fluid-filled small bowel loops. Prominent stool is present. No suspicious calcifications. Visualized solid organ contours appear normal. Bones: No suspicious bony lesions. IMPRESSION: Mild to moderate dilation of fluid-filled small bowel loops consistent with partial small bowel obstruction. Moderate stool is present suggestive constipation. Dictated by: Radha Ceron M.D. on 08/02/2018 at 20:58 Approved by: Radha Ceron M.D. on 08/02/2018 at 20:58
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
[2018-08-02] MEDS: BENZOCAINE/MENTHOL 1 LOZ PKT 1 EACH PO (21:39)
[2018-08-02] MEDS: PANTOPRAZOLE 40 MG VIAL IV (21:58)
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
--- NOTE | 2018-08-02 22:47 | PC.NURSE ---
Patient states abd feels painful and bloated, states he feels some heart burn and whenever that happens it mean's he's obstructed; patient has had this happen several times in the past and has had surgery for it. Dr. Armendariz and Dr. Malcolm notified, abd xray done, Yun came in and placed NGT, already emptied 900 ml from canister. Patient given morphine IV and protonix, held all PO meds. Patient states he feels much better and is resting. Patient had a small hard stool before NGT placement, but did not feel better, also reported some nausea. Call light in reach now, BA on.
[2018-08-02] MEDS: LACTATED RINGERS 1,000 ML 75 ML IV (23:39)
[2018-08-03] MEDS: OXYCODONE IR 5 MG TABLET 10 MG PO (01:31)
[2018-08-03] MEDS: PANTOPRAZOLE 20 MG TABLET PO (01:32)
[2018-08-03] MEDS: LORazepam 1 MG TABLET PO (01:32)
[2018-08-03 03:08] VITALS: BP 132/72; PULSE 78; RESP 16; TEMP 36.7; O2SAT 93
[2018-08-03 06:15] LABS: Add Manual Diff / Slide Review NO; Basophils Absolute Auto 0 /uL (0-100); Basophils Percent Auto 0.1 % (0-2); Eosinophils Absolute Auto 0 /uL (0-450); Hematocrit 28.2 % (41-53); Hemoglobin 9.7 g/dL (13.5-17.5); Lymphocytes Absolute Auto 800 /uL (1100-4500); Lymphocytes Percent Auto 3.7 % (25-40); Mean Corpuscular HGB Conc 34.3 % (30-36); Mean Corpuscular Hemoglobin 30.2 PG (26-34); Mean Corpuscular Volume 87.9 fL (80-100); Monocytes Absolute Auto 2700 /uL (0-900); Monocytes Percent Auto 12.4 % (3-14); Neutrophils Absolute Auto 18000 /uL (1500-7000); Neutrophils Percent Auto 83.8 % (50-75); Platelet Count 224 X10^3/uL (150-400); White Blood Cell Count 21.5 X10^3/uL (4.5-11.0)
[2018-08-03] MEDS: MORPHINE 2 MG/ML INJ 1 MG IV (06:17)
[2018-08-03 06:24] LABS: Blood Urea Nitrogen 40 mg/dL (9-20); Calcium 8.9 mg/dL (8.4-10.2); Carbon Dioxide 28 mmol/L (22-32); Chloride 100 mmol/L (98-107); Estimated Glomerular Filt Rate > 60.0 mL/min (>60); Glucose 127 mg/dL (80-110); HEMOLYSIS < 15 (0-50); Potassium 4.5 mmol/L (3.4-5.1); Sodium 137 mmol/L (137-145)
--- NOTE | 2018-08-03 06:28 | PC.NURSE ---
Pt is A and O x 4, VSS. NG put out 900 mLs green viscous gastric and Andres output was 550 mLs clear yellow. Tolerating fluids well. Rates pain 9/10, fair relief from 1 mg IVP MS. LS diminished, intermittent productive cough. S1, S2, + BTs. Pt declines crushed po medications will request IVP in addition, whenever possible. Pt refused q 2 hr turns all shift. Dressing C/D/I.
--- NOTE | 2018-08-03 09:25 | PT.IPTN ---
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, lumbar region without neurogenic claudication (07/31/18) Abdominal distension (gaseous) (07/31/18) Personal history of other medical treatment (07/31/18) Arthrodesis status (07/31/18) Surgery Performed Operation Date: 07/31/18 07:45 <No data on this case meets the specified criteria> Operation Date: 07/31/18 07:45 Actual Procedures p L2-3,L3-4 TLIF - L4-5,L5-S1 HWR & exploration of fusion, L2-S1 PSF w/Instru - Alyse Gallo MD Physical Therapy Treatment Note M2 PT-IP Current Condition Start: 07/31/18 15:46 Freq: NEEDED Status: Active Protocol: Document 08/01/18 13:20 AB (Rec: 08/01/18 15:56 AB [id number]) Physical Therapy Current Condition Current Condition Evaluation Date 08/01/18 Treatment Diagnosis s/p L2-4 TLIF, difficulty in walking Onset Date 07/31/18 Precautions Lumbar Precautions Log Roll No Twisting Limit Bending Lifting Restriction of 10 lbs Gait Belt above Incisional Area M3 PT-IP Subjective Start: 07/31/18 15:46 Freq: NEEDED Status: Active Protocol: Document 08/03/18 09:25 GGD (Rec: 08/03/18 12:32 GGD [id number]) Subjective Physical Therapy Visit Type Type Treatment Note Visit Start Time 08:55 Visit Stop Time 09:25 Number of SOIL ENGINEER Visits 3 Physical Therapy Visit Comments Patient Comments Pt states he having more pain. Therapy Pain Assessment Pain When Pain Assessed At Rest Pain Present Pain Present Pain Reported Location Lower Back Intensity 7 Scale Used Numeric (1 - 10) Pain Management Techniques Re-positioning Timing of Activity with Medications M4 PT-IP Mobility and Gait Start: 07/31/18 15:46 Freq: NEEDED Status: Active Protocol: Document 08/03/18 09:25 GGD (Rec: 08/03/18 12:32 GGD [id number]) PT-Bed Mobility Assessment Rolling Type of Rolling Log Rolling Level of Assist Standby Assistance Supine to Sit Supine to Sit Standby Assistance 1 Person Assistance Bedrails Sit to Supine Sit to Supine Contact Guard Assistance 1 Person Assistance Bedrails Scooting Scooting to Edge of Bed Standby Assistance PT-Transfer Assessment Sit to and From Stand Sit to and from Stand Contact Guard Assistance Use of Upper Extremities Equipment Transfer Assistive Device Gait Belt Front Wheeled Walker Orthotic/Prosthetic Devices or Brace: No Transfers Transfer Destination Bed Transfer Ability Level of Assist Contact Guard Assistance Use of Upper Extremities Gait Assessment Gait Gait Assistance Required: Standby Assistance Distance (Feet) 900 Able to Maintain Weight Bearing Status Yes During Gait Assistive Devices Assistive Device Gait Belt Front Wheeled Walker Orthotic/Prosthetic Devices or Brace: No Gait Deviations General Gait Pattern Antalgic Decreased Stride Length Decreased Feet Clearance Step-to Gait Factors Limiting Gait Function Factors Limiting Gait Function Decreased Activity Tolerance Decreased Strength Pain Stair Climbing Assessment Evaluation Level of Assist On Stairs Contact Guard Assistance Devices Stair Climbing Assistive Devices Front Wheel Walker Technique/Endurance Stair Climbing Direction Ascend and Descend Stair Climbing Technique Step to Step Number of Steps Climbed 1 Query Text: Stair Climbing Set # Repetitions (reps) 1 Comments Stair Climbing Comments Pt needed min cues. M5 PT-IP Objective Assessments Start: 07/31/18 15:46 Freq: NEEDED Status: Active Protocol: Document 08/01/18 13:20 AB (Rec: 08/01/18 15:56 AB [id number]) Orientation Orientation/Cognition Level of Alertness Alert Orientation Name Age Birthday Month Date Year Day of Week Place Situation Gross Range of Motion Lower Extremity ROM Assessment Within Functional Limits Strength Lower Extremity Strength Assessment Left Impaired Hip 3+/5 Knee 3+/5 Sensation Assessment Sensation Gross Sensation WNL M6 PT-IP Treatment Start: 07/31/18 15:46 Freq: NEEDED Status: Active Protocol: Document 08/03/18 09:25 GGD (Rec: 08/03/18 12:32 GGD [id number]) Physical Therapy Treatment Education Education Provided Precautions M7 PT-IP Assessment and Plan Start: 07/31/18 15:46 Freq: NEEDED Status: Active Protocol: Document 08/03/18 09:25 GGD (Rec: 08/03/18 12:32 GGD [id number]) PT Summary Assessment and Plan Summary Assessment Summary Pt had increase in pain with mobility. He need CGA for sit to supine with LE. He needed cues for safe stair mobility. He safe for home D/C when medically stable. Frequency of Treatment Frequency Of Treatment Twice a Day Treatment Plan Physical Therapy Treatment Plan Bed Mobility Training Transfer Training Gait Training Therapeutic Exercise Balance Retraining Post Op Education Discharge Planning Hot or Cold Pack Neuromuscular Re-ed Coordination Retraining Manual Therapy Recommendations To Nursing Amount of Assist Needed 1 Person Assist Discharge Recommendations PT Discharge Recommendations Home with Assistance Equipment Needed for Home Before Pt's is getting a FWW Discharge
[2018-08-03] MEDS: METOPROLOL IR 50 MG TABLET PO (09:34)
[2018-08-03] MEDS: PANTOPRAZOLE 40 MG VIAL IV (09:34)
[2018-08-03] MEDS: hydroCHLOROthiazide 12.5 MG CAPSULE PO (09:34)
[2018-08-03] MEDS: LOSARTAN 50 MG TABLET PO (09:34)
[2018-08-03] MEDS: SODIUM CHLORIDE 0.9% FLUSH 10 ML IV (09:34)
[2018-08-03] MEDS: VENLAFAXINE 37.5 MG TABLET PO ×2 (09:34→20:37)
[2018-08-03] MEDS: DOCUSATE 100 MG CAPSULE PO (09:34)
--- NOTE | 2018-08-03 09:50 | CM.DPC ---
DCP Cont: Per Ortho PA, pt making great progress but developed ileus and needed NG tube placed so not medically stable for d/c yet. Per PT, pt still doing well with ambulation and safe for d/c home. Plan: SW to follow for NG tube status and likely d/c home when medically stable. MAMTA Navarro
--- NOTE | 2018-08-03 10:05 | PM.PNPO.1 ---
Subjective Date Patient Seen: 08/03/18 Time Patient Seen: 10:05 Interval history: Hospital day 4, postop day 3 following L4-5 hardware removal, edilma laminectomy and posterior fusion, L2-3, L3-4 TLIF, L2 through S1 posterior screw fixation and dural tear. Patient was progressing well yesterday and then developed abdominal distention and discomfort. He did have surgical consultation by Dr. Malcolm yesterday. NG tube was placed with 900 mL drainage. Patient's discomfort and distention improved. His lab work noted WBC [id number], H&H 9.2/26.6. He has had difficulty with swallowing his p.o. meds with his NG tube in place. He did have increased pain to his throat and radiating to his left ear after swallowing some of his pills last night. He is asking about changing his medications to IV to avoid swallowing. Exam Vital Signs (past 8 hours): - 08/03/18 03:08 Temperature 98.1 F Pulse Rate 78 Respiratory Rate 16 Blood Pressure 132/72 Pulse Oximetry 93 Oxygen Delivery Method Room Air Oxygen Flow Rate 0 Narrative Exam Narrative: Alert, oriented no acute distress resting in bed. Back. Dressing in place with some shadowing to lumbar area. Abdomen soft with some mild distension and nontender. Legs. No calf pain or swelling. Pulses and sensation symmetrical. Objective Labs Result Diagrams: 08/03/18 05:41 08/03/18 05:41 Labs: Laboratory Results - last 24 hr 08/03/18 08/03/18 05:41 05:41 WBC 21.5 H RBC 3.20 L Hgb 9.7 L Hct 28.2 L MCV 87.9 MCH 30.2 MCHC 34.3 RDW 13.0 Plt Count 224 Neut % (Auto) 83.8 H Lymph % (Auto) 3.7 L [place] % (Auto) 12.4 Eos % (Auto) 0.0 L Baso % (Auto) 0.1 Neut # (Auto) 82279 H Lymph # (Auto) 800 L [place] # (Auto) 2700 H Eos # (Auto) 0 Baso # (Auto) 0 Sodium 137 Potassium 4.5 Chloride 100 Carbon Dioxide 28 BUN 40 H Creatinine 1.00 Estimated GFR > 60.0 BUN/Creatinine Ratio 40.0 H Glucose 127 H Calcium 8.9 Magnesium 2.0 Assessment & Plan Post-op (1) Abdominal distension: Current Visit: Yes Status: Acute (2) Ileus, postoperative: Current Visit: Yes Status: Acute Postoperative Procedures Operation Date: 07/31/18 07:45 <No data on this case meets the specified criteria> Operation Date: 07/31/18 07:45 Actual Procedures Side Surgeon p L2-3,L3-4 TLIF - L4-5,L5-S1 HWR & exploration of fusion, L2-S1 PSF w/Instru Alyse Gallo MD Plan: Changed his oral oxycodone from a tablet to suspension. Also changed PO lorazepam to IV. Will have the hospitalist see the patient to evaluate other meds as needed [place] has NG in place. Dr. Malcolm to follow for his ileus. Patient has progressed well with physical therapy and orthopedically stable. Anticipate discharge to home once he is cleared by surgeon and hospitalist. Recheck hemogram in the morning. Quality VTE Deep Vein Thrombosis/Pulmonary Embolism Present on Admission: No
--- NOTE | 2018-08-03 10:13 | P.PN_ITS ---
Subjective Date Patient Seen: 08/03/18 Time Patient Seen: 10:05 Interval history: Hospital day 4, postop day 3 following L4-5 hardware removal, edilma laminectomy and posterior fusion, L2-3, L3-4 TLIF, L2 through S1 posterior screw fixation and dural tear. Patient was progressing well yesterday and then developed abdominal distention and discomfort. He did have surgical consultation by Dr. Malcolm yesterday. NG tube was placed with 900 mL drainage. Patient's discomfort and distention improved. His lab work noted WBC 00920, H&H 9.2/26.6. He has had difficulty with swallowing his p.o. meds with his NG tube in place. He did have increased pain to his throat and radiating to his left ear after swallowing some of his pills last night. He is asking about changing his medications to IV to avoid swallowing. Exam Vital Signs (past 8 hours): - 08/03/18 03:08 Temperature 98.1 F Pulse Rate 78 Respiratory Rate 16 Blood Pressure 132/72 Pulse Oximetry 93 Oxygen Delivery Method Room Air Oxygen Flow Rate 0 Narrative Exam Narrative: Alert, oriented no acute distress resting in bed. Back. Dressing in place with some shadowing to lumbar area. Abdomen soft with some mild distension and nontender. Legs. No calf pain or swelling. Pulses and sensation symmetrical. Objective Labs Result Diagrams: 08/03/18 05:41 08/03/18 05:41 Labs: Laboratory Results - last 24 hr 08/03/18 08/03/18 05:41 05:41 WBC 21.5 H RBC 3.20 L Hgb 9.7 L Hct 28.2 L MCV 87.9 MCH 30.2 MCHC 34.3 RDW 13.0 Plt Count 224 Neut % (Auto) 83.8 H Lymph % (Auto) 3.7 L [place] % (Auto) 12.4 Eos % (Auto) 0.0 L Baso % (Auto) 0.1 Neut # (Auto) 10548 H Lymph # (Auto) 800 L [place] # (Auto) 2700 H Eos # (Auto) 0 Baso # (Auto) 0 Sodium 137 Potassium 4.5 Chloride 100 Carbon Dioxide 28 BUN 40 H Creatinine 1.00 Estimated GFR > 60.0 BUN/Creatinine Ratio 40.0 H Glucose 127 H Calcium 8.9 Magnesium 2.0 Assessment & Plan Post-op (1) Abdominal distension: Current Visit: Yes Status: Acute (2) Ileus, postoperative: Current Visit: Yes Status: Acute Postoperative Procedures Operation Date: 07/31/18 07:45 <No data on this case meets the specified criteria> Operation Date: 07/31/18 07:45 Actual Procedures Side Surgeon p L2-3,L3-4 TLIF - L4-5,L5-S1 HWR & exploration of fusion, L2-S1 PSF w/Instru Alyse Gallo MD Plan: Changed his oral oxycodone from a tablet to suspension. Also changed PO lorazepam to IV. Will have the hospitalist see the patient to evaluate other meds as needed valley has NG in place. Dr. Malcolm to follow for his ileus. Patient has progressed well with physical therapy and orthopedically stable. Anticipate discharge to home once he is cleared by surgeon and hospitalist. Recheck hemogram in the morning. Quality VTE Deep Vein Thrombosis/Pulmonary Embolism Present on Admission: No
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
[2018-08-03 11:38] VITALS: BP 131/63; PULSE 76; RESP 20; TEMP 36.7; O2SAT 92
--- NOTE | 2018-08-03 11:55 | OT.IP.TRT ---
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, lumbar region without neurogenic claudication (07/31/18) Abdominal distension (gaseous) (07/31/18) Personal history of other medical treatment (07/31/18) Arthrodesis status (07/31/18) Surgery Performed Operation Date: 07/31/18 07:45 <No data on this case meets the specified criteria> Operation Date: 07/31/18 07:45 Actual Procedures p L2-3,L3-4 TLIF - L4-5,L5-S1 HWR & exploration of fusion, L2-S1 PSF w/Instru - Alyse Gallo MD Occupational Therapy Treatment Note M2 OT-IP Current Condition Start: 08/01/18 14:24 Freq: Status: Active Protocol: Document 08/01/18 14:25 [facility] (Rec: 08/01/18 15:09 [facility] [id number]) Occupational Therapy Current Condition Current Condition Evaluation Date 08/01/18 Treatment Diagnosis Lumbar stenosis Diagnosis Onset Date 07/31/17 Post Operative Precautions Lumbar Precautions Log Roll No Twisting Limit Bending Lifting Restriction of 10 lbs Gait Belt above Incisional Area Weight Bearing Status Weight Bearing Status Weight Bear as Tolerated M3 OT- IP Subjective and Pain Start: 08/01/18 14:24 Freq: Status: Active Protocol: Document 08/03/18 11:44 [facility] (Rec: 08/03/18 11:55 [facility] [id number]) OT- Subjective Occupational Therapy Visit Type Type Treatment Note Visit Start Time 10:45 Visit Stop Time 11:00 Total Visit Minutes 15 Occupational Therapy Visit Comments Patient Comments Pt not wanting to get out of bed and insisting will shower at home. Pt a bit down due to now having NG tube in place. M4 OT- IP ADL's Start: 08/01/18 14:24 Freq: Status: Active Protocol: Document 08/03/18 11:44 [facility] (Rec: 08/03/18 11:55 [facility] [id number]) OT ADL-Dressing General Eval Lower Body Dressing Ability Minimal Assistance Maximum Assistance Areas Needing Assistance Retrieving/Set-up of Clothing Underpants/Brief Pants/Shorts Socks Comments OT Dressing Comments Educated pt on use of LB AEd and pt able to try donning socks while in bed as pt did not want to get up. M5 OT- IP IADL's Start: 08/01/18 14:24 Freq: Status: Active Protocol: Document 08/01/18 14:25 [facility] (Rec: 08/01/18 15:09 [facility] [id number]) OT-Instrumental Activities of Daily Living Medication Management Medication Management Comments Pt states does his own medications. Money Management Money Management Comments Pt states does his own. M6 OT- IP Functional Cognition Start: 08/01/18 14:24 Freq: Status: Active Protocol: Document 08/03/18 11:44 [facility] (Rec: 08/03/18 11:55 [facility] [id number]) Cognitive Factors Limiting Selfcare Function Cognitive Ability Level of Alertness Alert Patient Orientation Name Age Birthday Month Date Year Day of Week Place Situation Attention Span Ability Capable of Focused Attention Capable of Sustained Attention Ability to Follow Commands Able to Follow Multi-Step Commands Memory Description No Deficits Noted Cognitive Comments Cognitive Assessment Comments Pt following directions well. M7 OT- IP Mobility and Balance Start: 08/01/18 14:24 Freq: Status: Active Protocol: Document 08/01/18 14:25 [facility] (Rec: 08/01/18 15:09 [facility] [id number]) OT- Bed Mobility Assessment Rolling Type of Rolling Roll to Left Level of Assistance Minimal Assistance Supine to Sit Supine to Sit Assist Minimal Assistance 1 Person Assistance OT-Transfer Assessment Sit to and From Stand Sit to and from Stand Minimal Assistance Transfers Transfer Ability Minimal Assistance Technique Transfer Destination Chair Transfer Technique Stand Step Pivot Devices Transfer Assistive Devices Gait Belt Front Wheeled Walker Comments Mobility Comments Pt a bit shaky when coming to stand and needing SHASHI, vc to push up from the bed to stand with FWW. Per pt shaky due to increased pain. OT- Balance Assessment Sitting Balance and Reactions Static Sitting Balance Ability Normal Dynamic Sitting Balance Ability Normal Standing Balance and Reactions Static Standing Balance Ability Good M8 OT- IP Objective Assessments Start: 08/01/18 14:24 Freq: Status: Active Protocol: Document 08/01/18 14:25 [facility] (Rec: 08/01/18 15:09 [facility] [id number]) OT Gross Range of Motion Upper Extremity Range of Motion Assessment Within Functional Limits OT Strength Comments Strength Comments BUE 5/5 M9 OT- IP Assessment and Plan Start: 08/01/18 14:24 Freq: Status: Active Protocol: Document 08/03/18 11:44 [facility] (Rec: 08/03/18 11:55 [facility] [id number]) OT Summary Assessment and Plan Potential Rehabilitation Potential Good Analytic Complexity at Evaluation Low Summary OT Impairments Pain Functional Mobility Grooming Dressing Toileting Bathing Progress Towards Goals Progressing Toward Goals Slow Progress due to Medical Issues Assessment Summary Pt low complexity and has medical need of NG tube. Otherwise pt doing well for back surgery needs. Pt to go home when medically stable and to assist. Goals Grooming Goal Independent Dressing Goal Standby Assistance Toileting Goal Standby Assistance Bathing Goal Minimal Assistance Toilet Transfer Goal Independent Shower Transfer Goal Standby Assistance Patient/Caregiver Education Goal Demonstrate Post-Op Precautions Caregiver Independent Assisting Patient Days to Meet Goals 5 Frequency of Treatment Frequency Of Treatment Once a Day Treatment Plan OT Treatment Plan ADL Training Functional Cognition Training Functional Mobility Patient/Family Education Discharge Planning Other Treatment Recommendations and Next shower Treatment Focus Discharge Recommendations OT Discharge Recommendations Home with Assistance Home Equipment Needs shower chair, HHSP, FWW LB AED
[2018-08-03] MEDS: LACTATED RINGERS 1,000 ML 75 ML IV (14:09)
[2018-08-03] MEDS: OCTREOTIDE 100 MCG/ML VIAL 50 MCG SUBCUT (14:21)
[2018-08-03 15:50] VITALS: BP 159/59; PULSE 81; RESP 18; TEMP 36.8; O2SAT 97
--- NOTE | 2018-08-03 17:03 | PM.PN.1 ---
Subjective Date Patient Seen: 08/03/18 Time Patient Seen: 17:03 Interval history: Mr. Cotter is in reasonable spirits today. He reports that he continues to have abdominal discomfort and he has a difficult time telling me exactly where it is from. Some is definitely from his back and and some definitely from his abdomen. He wonders if oak male that he ate on the day prior to this had anything to do with his obstruction. 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 He denies any nausea. He is frustrated about some delays in his pain medication administration. He would like to know how many days we think he will be in the hospital. Exam Vital Signs (past 8 hours): - 08/03/18 11:38 08/03/18 15:50 Temperature 98.1 F 98.3 F Pulse Rate 76 81 Respiratory Rate 20 18 Blood Pressure 131/63 159/59 H Pulse Oximetry 92 97 Oxygen Delivery Method Room Air Oxygen Flow Rate 0 Narrative Exam Narrative: Abdomen is distended and quite tympanic to percussion. Globally and diffusely tender to palpation. Very few tinkling bowel tones. NG is currently clamped. The patient has the hiccups as well. Objective Labs Result Diagrams: 08/03/18 05:41 08/03/18 05:41 Labs: Laboratory Results - last 24 hr 08/03/18 08/03/18 05:41 05:41 WBC 21.5 H RBC 3.20 L Hgb 9.7 L Hct 28.2 L MCV 87.9 MCH 30.2 MCHC 34.3 RDW 13.0 Plt Count 224 Neut % (Auto) 83.8 H Lymph % (Auto) 3.7 L [place] % (Auto) 12.4 Eos % (Auto) 0.0 L Baso % (Auto) 0.1 Neut # (Auto) 82238 H Lymph # (Auto) 800 L [place] # (Auto) 2700 H Eos # (Auto) 0 Baso # (Auto) 0 Sodium 137 Potassium 4.5 Chloride 100 Carbon Dioxide 28 BUN 40 H Creatinine 1.00 Estimated GFR > 60.0 BUN/Creatinine Ratio 40.0 H Glucose 127 H Calcium 8.9 Magnesium 2.0 Assessment & Plan Plan: Assessment/Plan Narrative: I agree with Dr. Malcolm assessment that this is very likely an ileus. This would certainly be preferable to a bowel obstruction. I agree with plans to stop all oral medication with the exception of venlafaxine. Serotonin syndrome would only confuse the clinical picture. Hopefully enough will be absorbed to keep him out of that predicament. I will start a morphine PREP COOK for better pain control. Will also add low-dose Reglan. Serial abdominal exams and careful watchful waiting. Quality VTE Deep Vein Thrombosis/Pulmonary Embolism Present on Admission: No
--- NOTE | 2018-08-03 17:06 | P.PN_ITS ---
Subjective Date Patient Seen: 08/03/18 Time Patient Seen: 17:03 Interval history: Mr. Cotter is in reasonable spirits today. He reports that he continues to have abdominal discomfort and he has a difficult time telling me exactly where it is from. Some is definitely from his back and and some definitely from his abdomen. He wonders if oak male that he ate on the day prior to this had anything to do with his obstruction. 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 He denies any nausea. He is frustrated about some delays in his pain medication administration. He would like to know how many days we think he will be in the hospital. Exam Vital Signs (past 8 hours): - 08/03/18 11:38 08/03/18 15:50 Temperature 98.1 F 98.3 F Pulse Rate 76 81 Respiratory Rate 20 18 Blood Pressure 131/63 159/59 H Pulse Oximetry 92 97 Oxygen Delivery Method Room Air Oxygen Flow Rate 0 Narrative Exam Narrative: Abdomen is distended and quite tympanic to percussion. Globally and diffusely tender to palpation. Very few tinkling bowel tones. NG is currently clamped. The patient has the hiccups as well. Objective Labs Result Diagrams: 08/03/18 05:41 08/03/18 05:41 Labs: Laboratory Results - last 24 hr 08/03/18 08/03/18 05:41 05:41 WBC 21.5 H RBC 3.20 L Hgb 9.7 L Hct 28.2 L MCV 87.9 MCH 30.2 MCHC 34.3 RDW 13.0 Plt Count 224 Neut % (Auto) 83.8 H Lymph % (Auto) 3.7 L [place] % (Auto) 12.4 Eos % (Auto) 0.0 L Baso % (Auto) 0.1 Neut # (Auto) 72174 H Lymph # (Auto) 800 L [place] # (Auto) 2700 H Eos # (Auto) 0 Baso # (Auto) 0 Sodium 137 Potassium 4.5 Chloride 100 Carbon Dioxide 28 BUN 40 H Creatinine 1.00 Estimated GFR > 60.0 BUN/Creatinine Ratio 40.0 H Glucose 127 H Calcium 8.9 Magnesium 2.0 Assessment & Plan Plan: Assessment/Plan Narrative: I agree with Dr. Malcolm assessment that this is very likely an ileus. This would certainly be preferable to a bowel obstruction. I agree with plans to stop all oral medication with the exception of venlafaxine. Serotonin syndrome would only confuse the clinical picture. Hopefully enough will be absorbed to keep him out of that predicament. I will start a morphine ORDNANCE OFFICER for better pain control. Will also add low-dose Reglan. Serial abdominal exams and careful watchful waiting. Quality VTE Deep Vein Thrombosis/Pulmonary Embolism Present on Admission: No
[2018-08-03 20:16] VITALS: BP 128/71; PULSE 75; RESP 18; TEMP 36.9; O2SAT 94
[2018-08-03] MEDS: TETRACAINE/BENZOCAINE/BUTAMBEN (CETACAINE) BOTTLE 1 SPRAY TOP (20:33)
[2018-08-03] MEDS: BENZOCAINE/MENTHOL 1 LOZ PKT 1 EACH PO (20:36)
[2018-08-03] MEDS: MORPHINE PCA 30 MG/30 ML PCA.VIAL IV (21:42)
[2018-08-03 23:29] VITALS: BP 125/55; PULSE 81; RESP 15; TEMP 37; O2SAT 92
[2018-08-03] MEDS: LORazepam 2 MG/ML SYRINGE 0.5 MG IV (23:36)
[2018-08-04] MEDS: BENZOCAINE/MENTHOL 1 LOZ PKT 1 EACH PO ×2 (03:07→21:18)
[2018-08-04] MEDS: TETRACAINE/BENZOCAINE/BUTAMBEN (CETACAINE) BOTTLE 1 SPRAY TOP ×3 (03:08→21:19)
[2018-08-04 04:10] VITALS: BP 119/54; PULSE 87; RESP 16; TEMP 36.9; O2SAT 92
[2018-08-04] MEDS: LACTATED RINGERS 1,000 ML 75 ML IV ×2 (04:57→17:35)
[2018-08-04 05:49] LABS: Add Manual Diff / Slide Review NO; Basophils Absolute Auto 0 /uL (0-100); Basophils Percent Auto 0.2 % (0-2); Eosinophils Absolute Auto 100 /uL (0-450); Eosinophils Percent Auto 1.1 % (2-4); Hematocrit 27.8 % (41-53); Hemoglobin 9.5 g/dL (13.5-17.5); Lymphocytes Absolute Auto 1000 /uL (1100-4500); Lymphocytes Percent Auto 8.4 % (25-40); Mean Corpuscular HGB Conc 34.1 % (30-36); Mean Corpuscular Hemoglobin 30.3 PG (26-34); Mean Corpuscular Volume 88.8 fL (80-100); Monocytes Absolute Auto 1800 /uL (0-900); Monocytes Percent Auto 14.7 % (3-14); Neutrophils Absolute Auto 9200 /uL (1500-7000); Neutrophils Percent Auto 75.6 % (50-75); Platelet Count 245 X10^3/uL (150-400); Red Blood Cell Count 3.13 X10^6/uL (4.5-5.9); Red Cell Distribution Width 12.8 % (11.6-14.8); White Blood Cell Count 12.1 X10^3/uL (4.5-11.0)
[2018-08-04] MEDS: MORPHINE PCA 30 MG/30 ML PCA.VIAL IV ×3 (05:58→21:19)
[2018-08-04 06:00] LABS: BUN Creatinine Ratio 37.3 (6-22); Blood Urea Nitrogen 41 mg/dL (9-20); Calcium 8.8 mg/dL (8.4-10.2); Carbon Dioxide 33 mmol/L (22-32); Chloride 99 mmol/L (98-107); Estimated Glomerular Filt Rate > 60.0 mL/min (>60); Glucose 111 mg/dL (80-110); HEMOLYSIS < 15 (0-50); Potassium 4.4 mmol/L (3.4-5.1); Sodium 140 mmol/L (137-145)
[2018-08-04 07:15] VITALS: BP 136/69; PULSE 84; RESP 20; TEMP 36.8; O2SAT 90
[2018-08-04] MEDS: PANTOPRAZOLE 40 MG VIAL IV (09:14)
[2018-08-04] MEDS: OCTREOTIDE 100 MCG/ML VIAL 50 MCG SUBCUT ×3 (09:14→21:18)
[2018-08-04] MEDS: VENLAFAXINE 37.5 MG TABLET PO ×2 (09:15→21:18)
[2018-08-04] MEDS: SODIUM CHLORIDE 0.9% FLUSH 10 ML IV (09:15)
--- NOTE | 2018-08-04 09:26 | P.PN_ITS ---
Subjective Date Patient Seen: 08/04/18 Time Patient Seen: 09:22 Interval history: Patient continues to make progress with ambulation. He is very frustrated as he notes that the back of his throat is very sore. His back pain is well-controlled. He has no leg pain. He does not note numbness or weakness in the legs. Exam Vital Signs (past 8 hours): - 08/04/18 04:10 08/04/18 07:15 Temperature 98.4 F 98.2 F Pulse Rate 87 84 Respiratory Rate 16 20 Blood Pressure 119/54 L 136/69 Pulse Oximetry 92 90 L Oxygen Delivery Method Room Air Oxygen Flow Rate 0 Narrative Exam Narrative: Alert and oriented, in less distress than yesterday, abdomen distended but improved bowel sounds in comparison to yesterday. Dressings dry on his lumbar spine, calf soft bilaterally, normal motor strength in bilateral lower extremities Objective Labs Result Diagrams: 08/04/18 05:39 08/04/18 05:39 Labs: Laboratory Results - last 24 hr 08/04/18 08/04/18 05:39 05:39 WBC 12.1 H RBC 3.13 L Hgb 9.5 L Hct 27.8 L MCV 88.8 MCH 30.3 MCHC 34.1 RDW 12.8 Plt Count 245 Neut % (Auto) 75.6 H Lymph % (Auto) 8.4 L [place] % (Auto) 14.7 H Eos % (Auto) 1.1 L Baso % (Auto) 0.2 Neut # (Auto) 9200 H Lymph # (Auto) 1000 L [place] # (Auto) 1800 H Eos # (Auto) 100 Baso # (Auto) 0 Sodium 140 Potassium 4.4 Chloride 99 Carbon Dioxide 33 H BUN 41 H Creatinine 1.10 Estimated GFR > 60.0 BUN/Creatinine Ratio 37.3 H Glucose 111 H Calcium 8.8 Assessment & Plan Plan: Assessment/Plan Narrative: Bowel obstruction after lumbar spine surgery. Improving with an NG tube. Appreciate consultations from medicine and General surgery. His white blood cell count is markedly improved in comparison to yesterday. He does not have a headache and continues to be afebrile. Continue with NG tube and there is a discussion about starting TPN today. Encouraged the patient to continue to ambulate in the bertrand as tolerated. We will attempt to minimize narcotic pain medications in order to improve his overall bowel function. Discharge when bowels are working adequately. Quality VTE Deep Vein Thrombosis/Pulmonary Embolism Present on Admission: No
--- NOTE | 2018-08-04 11:01 | PC.NURSE ---
Pt's NG tube has been found pulled out at approx. 0930. Pt reports It fell out. Sticker to nose intact. Pt has been relieved of copious amounts of flatus after sitting on the toilet for a short time. He denies pain and has asked to look at the hospital food menu. Pt has been asking when he will be able to eat and drink. He was educated to the process of SBO and typical course of treatment. Pt was assured the doctor would be in soon to see him soon and explain further. Pt expressed multiple times that this was like being in skilled nursing. This nurse explained that we were just trying to help him and not make him upset. He was reminded multiple times that it was his right to refuse treatment and leave the hospital if he wished, against medical advice. Pt reported that if he didn't see the doctor soon, he would rip his IV out and leave. A short time later, the patient asked to have his belongings and for his IV to be removed. Pt left the hospital after signing AMA paperwork at approx. 11:15
--- NOTE | 2018-08-04 11:51 | PM.PN.1 ---
Subjective Date Patient Seen: 08/04/18 Time Patient Seen: 11:53 Interval history: Mr. Cotter is doing better today. He is seen to follow-up his ileus, coronary artery disease, diminished p.o. intake, lumbar spine fusion postoperative complications. The white blood count is 12.1 with a hemoglobin of 9.5. The BMP is normal with a BUN of 41 and creatinine of 1.1. The blood pressure is 119/54 with a pulse of 87. 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 His main complaint is throat soreness from the NG tube irritation. On exam of the throat there is no obvious thrush. The NG tube on the left side of the pharynx is obviously the cause. Exam Vital Signs (past 8 hours): - 08/04/18 04:10 08/04/18 07:15 Temperature 98.4 F 98.2 F Pulse Rate 87 84 Respiratory Rate 16 20 Blood Pressure 119/54 L 136/69 Pulse Oximetry 92 90 L Oxygen Delivery Method Room Air Oxygen Flow Rate 0 Narrative Exam Narrative: He is alert and oriented x3 without apparent distress. Heart is regular rate and rhythm without murmur. Lungs are clear to auscultation bilaterally. Abdomen is soft, bowel sounds are positive, increasing since yesterday, he is not tender. There is a small supraumbilical incisional hernia, easily reducible. Extremities no ankle edema. Objective Labs Result Diagrams: 08/04/18 05:39 08/04/18 05:39 Labs: Laboratory Results - last 24 hr 08/04/18 08/04/18 05:39 05:39 WBC 12.1 H RBC 3.13 L Hgb 9.5 L Hct 27.8 L MCV 88.8 MCH 30.3 MCHC 34.1 RDW 12.8 Plt Count 245 Neut % (Auto) 75.6 H Lymph % (Auto) 8.4 L [place] % (Auto) 14.7 H Eos % (Auto) 1.1 L Baso % (Auto) 0.2 Neut # (Auto) 9200 H Lymph # (Auto) 1000 L [place] # (Auto) 1800 H Eos # (Auto) 100 Baso # (Auto) 0 Sodium 140 Potassium 4.4 Chloride 99 Carbon Dioxide 33 H BUN 41 H Creatinine 1.10 Estimated GFR > 60.0 BUN/Creatinine Ratio 37.3 H Glucose 111 H Calcium 8.8 Assessment & Plan Plan: Assessment/Plan Narrative: 1. Ileus - Improving post op ileus vs. possible obstruction secondary to adhesions from previous surgeries. - NG tube in place and still draining bile. - octreotide appears to be successfully decreasing GI secretions and increasing resorption to help with comfort and passage of stool - General surgery is already following and is considering initiating TPN today. At this point he is on less than maintenance fluid rates with mild pre renal status seen on the BUN and creatinine testing. If not started on TPN then the fluid rate will need to be increased today. 2. laryngospasm - consider reactive laryngospasm due to irritation of abdominal content distension/NG tube diaphragm irritation. - consider Baclofen or haldol for spasm relief if no spontaneous relief 08/04/18. The symptoms seem to be quite variable. - oral, pill medications have been switched to equivalent IV or liquid form (see below) - Will consider switching back to oral after NG tube is discontinued. 3. Spinal surgery - defer to orthopedic notes for postoperative observation. Discussed with Dr. Armendariz today. 4. Leukocytosis - WBC has fallen from 25 to 21.5 to 12.1. As mentioned in previoua notes, the leukocytosis is likely due to steroid addition and not an infectious process or dural leak. 5. 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 Will continue IV prn. 7. CAD - discontinue and hold losartan, atorvostatin, HCTZ PO - Ordered IV Labetalol and hydralazine prn while NPO 8. HTN - discontinue HCTZ and losartan PO - ordered labetalol and hydralazine as IV equivalents 9. Hyperlipedemia - discontinue atorvostatin PO 10. GERD - continue with protonix IV Quality VTE Deep Vein Thrombosis/Pulmonary Embolism Present on Admission: No
--- NOTE | 2018-08-04 11:53 | PC.NURSE ---
Addendum entered by Berenice Stahl R.N. 08/04/18 13:42: Pt has asked to sit on the toilet and has passed more flatus. Original Note: Pt has been given his venlafaxine crushed and had his NG tube suction stopped for one hour this morning. During this time he walked around the nurses station with PT and was then assisted with a bed bath and catheter care. Pt tired quickly with these activities. Pt has been placed on 2L 02 via nasal cannula as his O2 saturations are in the mid 80's while he rests in bed with his eyes closed. O2 saturation is in the mid 90's with O2 delivery. LS are clear, he is encouraged to cough and deep breathe. He reports pain as mild 2-3/10 to his back and abdm at rest, with pain increasing to 4/10 with palpation. BT are present and pt reports he is passing small amt of flatus. 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
--- NOTE | 2018-08-04 11:57 | CM.DPC ---
DCP/AMA: Patient left [facility] AMA.
--- NOTE | 2018-08-04 12:04 | CM.DPC ---
DCP/cont Per Hospitalist patient to began TPN today and is expected to be admitted an additional 2-3 days. Patient is working with PT/OT, both recommending discharge home. Patient currently requiring 2L o2. Plan: Home when stable likely. CM to follow as needed.
--- NOTE | 2018-08-04 12:58 | PM.PN.1 ---
Subjective Date Patient Seen: 08/04/18 Time Patient Seen: 12:58 Interval history: Mr. Cotter is feeling much better today. He denies any significant abdominal pain. He denies any flatus. He reports his bowel movement this morning was about the size of a deer bowel movement. It was not associated with any flatus. Exam Vital Signs (past 8 hours): - 08/04/18 07:15 Temperature 98.2 F Pulse Rate 84 Respiratory Rate 20 Blood Pressure 136/69 Pulse Oximetry 90 L Oxygen Delivery Method Room Air Oxygen Flow Rate 0 Narrative Exam Narrative: Abdomen is much softer than yesterday. He does have scattered bowel tones. Minimal tenderness to palpation now. Objective Labs Result Diagrams: 08/04/18 05:39 08/04/18 05:39 Labs: Laboratory Results - last 24 hr 08/04/18 08/04/18 05:39 05:39 WBC 12.1 H RBC 3.13 L Hgb 9.5 L Hct 27.8 L MCV 88.8 MCH 30.3 MCHC 34.1 RDW 12.8 Plt Count 245 Neut % (Auto) 75.6 H Lymph % (Auto) 8.4 L [place] % (Auto) 14.7 H Eos % (Auto) 1.1 L Baso % (Auto) 0.2 Neut # (Auto) 9200 H Lymph # (Auto) 1000 L [place] # (Auto) 1800 H Eos # (Auto) 100 Baso # (Auto) 0 Sodium 140 Potassium 4.4 Chloride 99 Carbon Dioxide 33 H BUN 41 H Creatinine 1.10 Estimated GFR > 60.0 BUN/Creatinine Ratio 37.3 H Glucose 111 H Calcium 8.8 Assessment & Plan Plan: Assessment/Plan Narrative: Ileus as a complication of surgery. I have requested a PICC line be placed today and will initiate TPN tonight. Edgardo is comfortable with this choice. Continue watchful waiting. We need to be patient. Quality VTE Deep Vein Thrombosis/Pulmonary Embolism Present on Admission: No
--- NOTE | 2018-08-04 13:07 | PT.IPTN ---
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, lumbar region without neurogenic claudication (07/31/18) Abdominal distension (gaseous) (07/31/18) Personal history of other medical treatment (07/31/18) Arthrodesis status (07/31/18) Surgery Performed Operation Date: 07/31/18 07:45 <No data on this case meets the specified criteria> Operation Date: 07/31/18 07:45 Actual Procedures p L2-3,L3-4 TLIF - L4-5,L5-S1 HWR & exploration of fusion, L2-S1 PSF w/Instru - Alyse Gallo MD Physical Therapy Treatment Note M2 PT-IP Current Condition Start: 07/31/18 15:46 Freq: NEEDED Status: Active Protocol: Document 08/01/18 13:20 AB (Rec: 08/01/18 15:56 AB [id number]) Physical Therapy Current Condition Current Condition Evaluation Date 08/01/18 Treatment Diagnosis s/p L2-4 TLIF, difficulty in walking Onset Date 07/31/18 Precautions Lumbar Precautions Log Roll No Twisting Limit Bending Lifting Restriction of 10 lbs Gait Belt above Incisional Area M3 PT-IP Subjective Start: 07/31/18 15:46 Freq: NEEDED Status: Active Protocol: Document 08/04/18 10:30 CLB (Rec: 08/04/18 13:07 CLB [id number]) Subjective Physical Therapy Visit Type Type Treatment Note Visit Start Time 10:30 Visit Stop Time 10:47 Total Visit Minutes 16 Number of STRATEGIC DEVELOPMENT MANAGER Visits 4 Physical Therapy Visit Comments Patient Comments Pt agreeable to do therapy. Therapy Pain Assessment Pain When Pain Assessed At Rest Pain Present Pain Present Pain Reported Location Lower Back Intensity 4 Scale Used Numeric (1 - 10) Pain Management Techniques Apply Cold Re-positioning Timing of Activity with Medications M4 PT-IP Mobility and Gait Start: 07/31/18 15:46 Freq: NEEDED Status: Active Protocol: Document 08/04/18 10:30 CLB (Rec: 08/04/18 13:07 CLB [id number]) PT-Bed Mobility Assessment Rolling Type of Rolling Log Rolling Level of Assist Standby Assistance Supine to Sit Supine to Sit Standby Assistance 1 Person Assistance Bedrails Scooting Scooting to Edge of Bed Standby Assistance PT-Transfer Assessment Sit to and From Stand Sit to and from Stand Contact Guard Assistance Use of Upper Extremities Equipment Transfer Assistive Device Gait Belt Front Wheeled Walker Orthotic/Prosthetic Devices or Brace: No Transfers Transfer Destination Bed Transfer Ability Level of Assist Contact Guard Assistance Use of Upper Extremities Gait Assessment Gait Gait Assistance Required: Standby Assistance Distance (Feet) 640 Able to Maintain Weight Bearing Status Yes During Gait Assistive Devices Assistive Device Gait Belt Front Wheeled Walker Orthotic/Prosthetic Devices or Brace: No Gait Deviations General Gait Pattern Antalgic Decreased Stride Length Decreased Feet Clearance Step-to Gait Factors Limiting Gait Function Factors Limiting Gait Function Decreased Activity Tolerance Decreased Strength Pain Comments Gait Comments Pt stated he was feeling more fatigued today and required standing rest breaks during ambulation. Pt requires assist with line during ambulation. M5 PT-IP Objective Assessments Start: 07/31/18 15:46 Freq: NEEDED Status: Active Protocol: Document 08/01/18 13:20 AB (Rec: 08/01/18 15:56 AB [id number]) Orientation Orientation/Cognition Level of Alertness Alert Orientation Name Age Birthday Month Date Year Day of Week Place Situation Gross Range of Motion Lower Extremity ROM Assessment Within Functional Limits Strength Lower Extremity Strength Assessment Left Impaired Hip 3+/5 Knee 3+/5 Sensation Assessment Sensation Gross Sensation WNL M6 PT-IP Treatment Start: 07/31/18 15:46 Freq: NEEDED Status: Active Protocol: Document 08/04/18 10:30 CLB (Rec: 08/04/18 13:07 CLB [id number]) Physical Therapy Treatment Education Education Provided Precautions M7 PT-IP Assessment and Plan Start: 07/31/18 15:46 Freq: NEEDED Status: Active Protocol: Document 08/04/18 10:30 CLB (Rec: 08/04/18 13:07 CLB [id number]) PT Summary Assessment and Plan Summary Assessment Summary Pt c/o increased fatigue today and ambulated ~640ft. Pt has good safety awareness and took standing rest breaks when needed during ambulation. Pt is SBA for all bed mobility and recalls 3/3 back precautions. Frequency of Treatment Frequency Of Treatment Once a Day Treatment Plan Physical Therapy Treatment Plan Bed Mobility Training Transfer Training Gait Training Therapeutic Exercise Balance Retraining Post Op Education Discharge Planning Hot or Cold Pack Neuromuscular Re-ed Coordination Retraining Manual Therapy Recommendations To Nursing Amount of Assist Needed 1 Person Assist Discharge Recommendations PT Discharge Recommendations Home with Assistance Equipment Needed for Home Before Pt's is getting a FWW Discharge
--- NOTE | 2018-08-04 13:09 | PT.IPTN ---
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, lumbar region without neurogenic claudication (07/31/18) Abdominal distension (gaseous) (07/31/18) Personal history of other medical treatment (07/31/18) Arthrodesis status (07/31/18) Surgery Performed Operation Date: 07/31/18 07:45 <No data on this case meets the specified criteria> Operation Date: 07/31/18 07:45 Actual Procedures p L2-3,L3-4 TLIF - L4-5,L5-S1 HWR & exploration of fusion, L2-S1 PSF w/Instru - Alyse Gallo MD Physical Therapy Treatment Note M2 PT-IP Current Condition Start: 07/31/18 15:46 Freq: NEEDED Status: Active Protocol: Document 08/01/18 13:20 AB (Rec: 08/01/18 15:56 AB [id number]) Physical Therapy Current Condition Current Condition Evaluation Date 08/01/18 Treatment Diagnosis s/p L2-4 TLIF, difficulty in walking Onset Date 07/31/18 Precautions Lumbar Precautions Log Roll No Twisting Limit Bending Lifting Restriction of 10 lbs Gait Belt above Incisional Area M3 PT-IP Subjective Start: 07/31/18 15:46 Freq: NEEDED Status: Active Protocol: Document 08/04/18 10:30 CLB (Rec: 08/04/18 13:07 CLB [id number]) Subjective Physical Therapy Visit Type Type Treatment Note Visit Start Time 10:30 Visit Stop Time 10:47 Total Visit Minutes 16 Number of FIRE SUPPORT SPECIALIST Visits 4 Physical Therapy Visit Comments Patient Comments Pt agreeable to do therapy. Therapy Pain Assessment Pain When Pain Assessed At Rest Pain Present Pain Present Pain Reported Location Lower Back Intensity 4 Scale Used Numeric (1 - 10) Pain Management Techniques Apply Cold Re-positioning Timing of Activity with Medications M4 PT-IP Mobility and Gait Start: 07/31/18 15:46 Freq: NEEDED Status: Active Protocol: Document 08/04/18 10:30 CLB (Rec: 08/04/18 13:07 CLB [id number]) PT-Bed Mobility Assessment Rolling Type of Rolling Log Rolling Level of Assist Standby Assistance Supine to Sit Supine to Sit Standby Assistance 1 Person Assistance Bedrails Scooting Scooting to Edge of Bed Standby Assistance PT-Transfer Assessment Sit to and From Stand Sit to and from Stand Contact Guard Assistance Use of Upper Extremities Equipment Transfer Assistive Device Gait Belt Front Wheeled Walker Orthotic/Prosthetic Devices or Brace: No Transfers Transfer Destination Bed Transfer Ability Level of Assist Contact Guard Assistance Use of Upper Extremities Gait Assessment Gait Gait Assistance Required: Standby Assistance Distance (Feet) 640 Able to Maintain Weight Bearing Status Yes During Gait Assistive Devices Assistive Device Gait Belt Front Wheeled Walker Orthotic/Prosthetic Devices or Brace: No Gait Deviations General Gait Pattern Antalgic Decreased Stride Length Decreased Feet Clearance Step-to Gait Factors Limiting Gait Function Factors Limiting Gait Function Decreased Activity Tolerance Decreased Strength Pain Comments Gait Comments Pt stated he was feeling more fatigued today and required standing rest breaks during ambulation. Pt requires assist with line during ambulation. M5 PT-IP Objective Assessments Start: 07/31/18 15:46 Freq: NEEDED Status: Active Protocol: Document 08/01/18 13:20 AB (Rec: 08/01/18 15:56 AB [id number]) Orientation Orientation/Cognition Level of Alertness Alert Orientation Name Age Birthday Month Date Year Day of Week Place Situation Gross Range of Motion Lower Extremity ROM Assessment Within Functional Limits Strength Lower Extremity Strength Assessment Left Impaired Hip 3+/5 Knee 3+/5 Sensation Assessment Sensation Gross Sensation WNL M6 PT-IP Treatment Start: 07/31/18 15:46 Freq: NEEDED Status: Active Protocol: Document 08/04/18 10:30 CLB (Rec: 08/04/18 13:07 CLB [id number]) Physical Therapy Treatment Education Education Provided Precautions M7 PT-IP Assessment and Plan Start: 07/31/18 15:46 Freq: NEEDED Status: Active Protocol: Document 08/04/18 10:30 CLB (Rec: 08/04/18 13:07 CLB [id number]) PT Summary Assessment and Plan Summary Assessment Summary Pt c/o increased fatigue today and ambulated ~640ft. Pt has good safety awareness and took standing rest breaks when needed during ambulation. Pt is SBA for all bed mobility and recalls 3/3 back precautions. Frequency of Treatment Frequency Of Treatment Once a Day Treatment Plan Physical Therapy Treatment Plan Bed Mobility Training Transfer Training Gait Training Therapeutic Exercise Balance Retraining Post Op Education Discharge Planning Hot or Cold Pack Neuromuscular Re-ed Coordination Retraining Manual Therapy Recommendations To Nursing Amount of Assist Needed 1 Person Assist Discharge Recommendations PT Discharge Recommendations Home with Assistance Equipment Needed for Home Before Pt's is getting a FWW Discharge
[2018-08-04 15:37] VITALS: BP 106/68; PULSE 93; RESP 14; TEMP 36.6; O2SAT 92
--- NOTE | 2018-08-04 16:17 | DI.RAD.S_ITS ---
PROCEDURE: XR CHEST FOR PICC 1V INDICATIONS: PICC placement TECHNIQUE: One view of the chest was acquired. COMPARISON: [facility], CR, XR CHEST 1V, 08/02/2018, 22:27. FINDINGS: Surgical changes and devices: Left-sided PICC line tip is in the region of SVC. Enteric tube tip is in the region of stomach lumen. Surgical clips are noted in left upper quadrant abdomen. Fusion hardware in visualized lumbar spine is seen. Lungs and pleura: No pleural effusions or pneumothorax. Lungs are clear. Mediastinum: Mediastinal contours appear normal. Heart size is enlarged. Bones and chest wall: No suspicious bony lesions. Overlying soft tissues appear unremarkable. IMPRESSION: Left-sided PICC line tip is in the region of SVC. No focal infiltrate or pneumothorax. Dictated by: Saran Moore M.D. on 08/04/2018 at 16:43 Approved by: Saran Moore M.D. on 08/04/2018 at 16:44
[2018-08-04] MEDS: AA 5 %/CALCIUM/LYTES/DEXT 20 % 2,000 ML with MULTIVITAMIN 10 ML, TRACE ELEMENTS 1 ML 83.792 ML IV (17:34)
[2018-08-04] MEDS: FAT EMULSIONS 50 GM/250 ML EMULSION IV (17:34)
[2018-08-04] MEDS: LORazepam 2 MG/ML SYRINGE 0.5 MG IV (18:49)
[2018-08-04 20:00] VITALS: BP 107/55; PULSE 108; RESP 16; TEMP 36.8; O2SAT 89; O2SAT 91; O2SAT 95
[2018-08-04 23:52] VITALS: BP 101/57; PULSE 93; RESP 20; TEMP 36.6; O2SAT 92
[2018-08-05] VITALS (7 sets, daily range): BP systolic 119–139; BP diastolic 55–66; PULSE 83–95; RESP 14–18; TEMP 36.6–37.3; O2SAT 88–97; BMI 27.6
[2018-08-05] MEDS: SODIUM CHLORIDE 0.9% 1,000 ML 75 ML IV ×2 (00:06→13:08)
[2018-08-05] MEDS: INSULIN REGULAR 100 UNIT/ML 3 ML VIAL SUBCUT ×3 (00:15→13:08)
[2018-08-05] MEDS: MAG HYDROX/ALUM/SIMETH 30 ML UDC PO (04:43)
[2018-08-05] MEDS: LORazepam 2 MG/ML SYRINGE 0.5 MG IV (05:26)
[2018-08-05] MEDS: MORPHINE PCA 30 MG/30 ML PCA.VIAL IV ×3 (06:09→20:26)
--- NOTE | 2018-08-05 06:10 | PC.NURSE ---
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 His nurse was busy, so I replaced syringe.
--- NOTE | 2018-08-05 06:20 | P.PN_ITS ---
Subjective Date Patient Seen: 08/05/18 Interval history: Edgardo Cotter is an 83-year-old male with a past medical history significant for CAD, hypertension, hyperlipidemia, anxiety, depression, multiple abdominal surgeries including, previous lysis of adhesions, who is now status post extensive lumbar spinal surgery in which we were consulted for postop ileus versus SBO and medical management of multiple comorbidities. Overnight: The patient was stable and there were no acute events. The patient is resting in bed comfortably and in no acute distress. He continues to endorse pain in his oropharynx related to the NG tube. He reports small amount of flatus but no further bowel movements. He denies headache, shortness of breath, chest pain, abdominal pain, nausea, vomiting, fever, chills , dysuria, diarrhea or constipation. He is voiding without difficulty. He is up ambulating with assistance. Exam Vital Signs (past 8 hours): - 08/04/18 23:52 08/05/18 04:30 Temperature 98 F 98 F Pulse Rate 93 H 94 H Respiratory Rate 20 18 Blood Pressure 101/57 L 139/64 Pulse Oximetry 92 96 Oxygen Delivery Method Room Air Oxygen Flow Rate 1 Narrative Exam Narrative: General: Middle-aged gentleman lying in bed and in no acute distress, well- developed, well-nourished, appropriately interactive. HEENT: Normocephalic, atraumatic. External ears without defect. Pupils equal, round, and reactive to light and accommodation. Anicteric sclerae, moist conjunctivae, and no lid lag. NG tube in place. Neck: Supple with full range of motion. No lymphadenopathy or thyromegaly. Cardiovascular: Regular rate and rhythm without murmurs, rubs, or gallops appreciated Pulmonary: Clear to auscultation bilaterally without crackles, wheezes, or rhonchi. Normal respiratory effort with no use of accessory muscles. Abdomen: Soft, hypoactive bowel sounds but present, diffuse mild tenderness to palpation, mildly distended. No rebound or guarding. No hepatosplenomegaly or masses appreciated. Extremities: No clubbing, cyanosis, or edema. Skin: Normal temperature, turgor, and texture; no rash, ulcers, or subcutaneous nodules appreciated. Neurological: Cranial nerves grossly intact. Psychiatric: Normal mood and affect. Alert and oriented to person, place, and time. Objective Labs Result Diagrams: 08/05/18 06:50 08/05/18 06:50 Assessment & Plan Plan: Assessment/Plan Narrative: Edgardo Cotter is an 83-year-old male with a past medical history significant for CAD, hypertension, hyperlipidemia, anxiety, depression, multiple abdominal surgeries including, previous lysis of adhesions, who is now status post extensive lumbar spinal surgery in which we were consulted for postop ileus versus SBO and medical management of multiple comorbidities. 1. Acute post-operative Ileus, not present on admission. Improving. -Likely post-op ileus vs. partial SBO. -Chest/Abdominal series demonstrated mild to moderate dilation of fluid- filled small bowel loops consistent with partial small bowel obstruction. Moderate stool is present suggestive constipation. -Patient has had a small BM and passing flatus. Consider relistor for chronic opiate induced constipation. -NG tube in place with decreased drainage today. Surgery plans to start clamping NG tube tomorrow. -Octreotide was given to decrease GI secretions and discontinued today as secretions have significantly decreased. -General surgery is following and started TPN 08/04. 2. Acute laryngospasm, not present on admission. Resolved. -Consider reactive laryngospasm due to irritation of abdominal content distension/NG tube diaphragm irritation. -Consider Baclofen or haldol for spasm relief if no spontaneous relief. The symptoms seem to be improved. -Oral home medications have been switched to equivalent IV, liquid form, or held (see below). Plan to switch back to oral after NG tube is discontinued and tolerating PO intake. 3. Acute extensive lumbar spinal surgery, not present on admission. Active -Defer to orthopedic notes for postoperative observation. Discussed with Dr. Armendariz today. 4. Acute leukocytosis, present on admission. Improving. -WBC trending down from 25 to 12.1. As mentioned in previous notes, the leukocytosis is likely due to steroid addition and not an infectious process or dural leak. 5. Depression, chronic, present on admission. Stable. -Continue with oral venlafaxine, crushed, to avoid withdrawal - with the understanding of incomplete absorption due to the NGT. 6. Anxiety, chronic, present on admission. Stable. -He has a longstanding anxiety with benzodiazapine dependency. Will continue lorazepam IV as needed. 7. CAD, chronic, present on admission. Stable. -Patient NPO and held PO meds losartan, atorvastatin, HCTZ. -Ordered IV Labetalol and hydralazine as needed while NPO. 8. Hypertension, chronic, present on admission. Stable. -Patient NPO and held PO meds HCTZ and losartan. -Ordered labetalol and hydralazine as needed IV equivalents. 9. Hyperlipedemia, chronic, present on admission. Stable. - Held PO meds atorvastatin. 10. GERD, chronic, present on admission. Stable. - Continue home PPI with Protonix IV. Thank you for allowing us to participate in this patients care. We will continue to follow along with you. Quality VTE Deep Vein Thrombosis/Pulmonary Embolism Present on Admission: No
--- NOTE | 2018-08-05 06:33 | PC.NURSE ---
NOC shift Pt has been confused, has difficulty remaining on topic during assessment, Pt talks in circles and about odd topics, he states that he feels confused at times, and he has been irritable with staff. given medication for heartburn and given ativan x1 for anxiety. Pt used 11.1 of LOCK UP WORKER morhine this shift. 350cc of brown drainage from NG tube this shift. Pt required SS insulin, 3unit at 0000 for BG of 255 and 3units at 0600 for BG of 190.
[2018-08-05 07:10] LABS: Add Manual Diff / Slide Review NO; Basophils Absolute Auto 0 /uL (0-100); Basophils Percent Auto 0.2 % (0-2); Eosinophils Absolute Auto 500 /uL (0-450); Eosinophils Percent Auto 4.2 % (2-4); Hematocrit 25.5 % (41-53); Hemoglobin 8.7 g/dL (13.5-17.5); Lymphocytes Absolute Auto 700 /uL (1100-4500); Lymphocytes Percent Auto 6.2 % (25-40); Mean Corpuscular HGB Conc 34.1 % (30-36); Mean Corpuscular Hemoglobin 30.4 PG (26-34); Mean Corpuscular Volume 89.2 fL (80-100); Monocytes Absolute Auto 1400 /uL (0-900); Monocytes Percent Auto 12.7 % (3-14); Neutrophils Absolute Auto 8600 /uL (1500-7000); Neutrophils Percent Auto 76.7 % (50-75); Platelet Count 224 X10^3/uL (150-400); Red Blood Cell Count 2.86 X10^6/uL (4.5-5.9); Red Cell Distribution Width 12.7 % (11.6-14.8); White Blood Cell Count 11.2 X10^3/uL (4.5-11.0)
[2018-08-05 07:19] LABS: Alanine Aminotransferase 54 IU/L (21-72); Albumin 2.9 g/dL (3.5-5.0); Albumin Globulin Ratio 0.9 (1.0-2.8); Alkaline Phosphatase 86 U/L (38-126); Aspartate Aminotransferase 34 IU/L (17-59); BUN Creatinine Ratio 43.3 (6-22); Bilirubin Total 1.5 mg/dL (0.2-1.3); Blood Urea Nitrogen 52 mg/dL (9-20); Carbon Dioxide 31 mmol/L (22-32); Chloride 101 mmol/L (98-107); Globulin 3.1 g/dL (1.7-4.1); Glucose 171 mg/dL (80-110); HEMOLYSIS < 15 (0-50); Magnesium 2.2 mg/dL (1.6-2.3); Potassium 4.2 mmol/L (3.4-5.1); Sodium 139 mmol/L (137-145)
--- NOTE | 2018-08-05 07:32 | PM.PNPO.1 ---
Subjective Date Patient Seen: 08/05/18 Interval history: Patient seen bedside s/p L2-S1 TLIF with Dr. Gallo on 07/31/17. Patient is POD #5. His stay has been complicated with a post-op ileus vs. SBO that general surgery is currently following. TPN has been started. Patient states that he still has belly pain as well as some back pain. He has a chronic in-dwelling catheter as well. Exam Vital Signs (past 8 hours): - 08/04/18 23:52 08/05/18 04:30 Temperature 98 F 98 F Pulse Rate 93 H 94 H Respiratory Rate 20 18 Blood Pressure 101/57 L 139/64 Pulse Oximetry 92 96 Oxygen Delivery Method Room Air Oxygen Flow Rate 1 Narrative Exam Narrative: NAD, A&Ox3. Dressing on lumbar spine is clean, dry, and intact. Andres in place. NG tube is still actively draining bilious liquid. Calves are soft and compressible, no focal deficits noted. Objective Labs Result Diagrams: 08/05/18 06:50 08/05/18 06:50 Labs: Laboratory Results - last 24 hr 08/05/18 08/05/18 06:50 06:50 WBC 11.2 H RBC 2.86 L Hgb 8.7 L Hct 25.5 L MCV 89.2 MCH 30.4 MCHC 34.1 RDW 12.7 Plt Count 224 Neut % (Auto) 76.7 H Lymph % (Auto) 6.2 L [place] % (Auto) 12.7 Eos % (Auto) 4.2 H Baso % (Auto) 0.2 Neut # (Auto) 8600 H Lymph # (Auto) 700 L [place] # (Auto) 1400 H Eos # (Auto) 500 H Baso # (Auto) 0 Sodium 139 Potassium 4.2 Chloride 101 Carbon Dioxide 31 BUN 52 H Creatinine 1.20 Estimated GFR 58.0 L BUN/Creatinine Ratio 43.3 H Glucose 171 H Calcium 8.0 L Magnesium 2.2 Total Bilirubin 1.5 H AST 34 ALT 54 Alkaline Phosphatase 86 Total Protein 6.0 L Albumin 2.9 L Globulin 3.1 Albumin/Globulin Ratio 0.9 L Assessment & Plan Post-op Postoperative Procedures Operation Date: 07/31/18 07:45 <No data on this case meets the specified criteria> Operation Date: 07/31/18 07:45 Actual Procedures Side Surgeon p L2-3,L3-4 TLIF - L4-5,L5-S1 HWR & exploration of fusion, L2-S1 PSF w/Instru Alyse Gallo MD 1. POD #5 s/p above procedure-continue PT/OT, pain control. 2. Post-op ileus vs. SBO-being managed by general surgery. Defer to them for treatment. 3. Multiple medical comorbidities-being managed by hospitalist team. Dispo-pending return of bowel function. Quality VTE Deep Vein Thrombosis/Pulmonary Embolism Present on Admission: No
--- NOTE | 2018-08-05 09:51 | PT.IPTN ---
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, lumbar region without neurogenic claudication (07/31/18) Abdominal distension (gaseous) (07/31/18) Personal history of other medical treatment (07/31/18) Arthrodesis status (07/31/18) Surgery Performed Operation Date: 07/31/18 07:45 <No data on this case meets the specified criteria> Operation Date: 07/31/18 07:45 Actual Procedures p L2-3,L3-4 TLIF - L4-5,L5-S1 HWR & exploration of fusion, L2-S1 PSF w/Instru - Alyse Gallo MD Physical Therapy Treatment Note M2 PT-IP Current Condition Start: 07/31/18 15:46 Freq: NEEDED Status: Active Protocol: Document 08/01/18 13:20 AB (Rec: 08/01/18 15:56 AB [id number]) Physical Therapy Current Condition Current Condition Evaluation Date 08/01/18 Treatment Diagnosis s/p L2-4 TLIF, difficulty in walking Onset Date 07/31/18 Precautions Lumbar Precautions Log Roll No Twisting Limit Bending Lifting Restriction of 10 lbs Gait Belt above Incisional Area M3 PT-IP Subjective Start: 07/31/18 15:46 Freq: NEEDED Status: Active Protocol: Document 08/05/18 09:20 CLB (Rec: 08/05/18 09:51 CLB [email or web address]) Subjective Physical Therapy Visit Type Type Treatment Note Visit Start Time 09:20 Visit Stop Time 09:45 Total Visit Minutes 25 Number of FULL STACK SOFTWARE DEVELOPER Visits 5 Physical Therapy Visit Comments Patient Comments Pt agreeable to do therapy. Therapy Pain Assessment Pain When Pain Assessed At Rest Pain Present Pain Present Pain Reported M4 PT-IP Mobility and Gait Start: 07/31/18 15:46 Freq: NEEDED Status: Active Protocol: Document 08/05/18 09:20 CLB (Rec: 08/05/18 09:51 CLB [email or web address]) PT-Bed Mobility Assessment Rolling Type of Rolling Log Rolling Level of Assist Standby Assistance Supine to Sit Supine to Sit Standby Assistance 1 Person Assistance Bedrails Scooting Scooting to Edge of Bed Standby Assistance PT-Transfer Assessment Sit to and From Stand Sit to and from Stand Contact Guard Assistance Use of Upper Extremities Equipment Transfer Assistive Device Gait Belt Front Wheeled Walker Orthotic/Prosthetic Devices or Brace: No Transfers Transfer Destination Bed Transfer Ability Level of Assist Contact Guard Assistance Use of Upper Extremities Gait Assessment Gait Gait Assistance Required: Standby Assistance Distance (Feet) 450 Able to Maintain Weight Bearing Status Yes During Gait Assistive Devices Assistive Device Gait Belt Front Wheeled Walker Orthotic/Prosthetic Devices or Brace: No Gait Deviations General Gait Pattern Antalgic Decreased Stride Length Decreased Feet Clearance Step-to Gait Factors Limiting Gait Function Factors Limiting Gait Function Decreased Activity Tolerance Decreased Strength Pain Comments Gait Comments Pt requires assist with O2 tank and IV lines. Pt on 1.5 L O2, O2 remained above 92 throughout activity. M5 PT-IP Objective Assessments Start: 07/31/18 15:46 Freq: NEEDED Status: Active Protocol: Document 08/01/18 13:20 AB (Rec: 08/01/18 15:56 AB [id number]) Orientation Orientation/Cognition Level of Alertness Alert Orientation Name Age Birthday Month Date Year Day of Week Place Situation Gross Range of Motion Lower Extremity ROM Assessment Within Functional Limits Strength Lower Extremity Strength Assessment Left Impaired Hip 3+/5 Knee 3+/5 Sensation Assessment Sensation Gross Sensation WNL M6 PT-IP Treatment Start: 07/31/18 15:46 Freq: NEEDED Status: Active Protocol: Document 08/04/18 10:30 CLB (Rec: 08/04/18 13:07 CLB [id number]) Physical Therapy Treatment Education Education Provided Precautions M7 PT-IP Assessment and Plan Start: 07/31/18 15:46 Freq: NEEDED Status: Active Protocol: Document 08/05/18 09:20 CLB (Rec: 08/05/18 09:51 CLB [email or web address]) PT Summary Assessment and Plan Summary Assessment Summary Pt continues to c/o fatigue, pt ambulates slowly requiring standing rest breaks. Pt is SBA for all bed mobility. Left pt on EOB with ARCHITECTURAL INSPECTOR present. Frequency of Treatment Frequency Of Treatment Once a Day Treatment Plan Physical Therapy Treatment Plan Bed Mobility Training Transfer Training Gait Training Therapeutic Exercise Balance Retraining Post Op Education Discharge Planning Hot or Cold Pack Neuromuscular Re-ed Coordination Retraining Manual Therapy Other Recommendations and Next Treatment ambulation, stair climbing Focus Discharge Recommendations PT Discharge Recommendations Home with Assistance Equipment Needed for Home Before Pt's is getting a FWW Discharge
[2018-08-05] MEDS: VENLAFAXINE 37.5 MG TABLET PO ×2 (10:48→20:25)
[2018-08-05] MEDS: PANTOPRAZOLE 40 MG VIAL IV (10:48)
[2018-08-05] MEDS: OCTREOTIDE 100 MCG/ML VIAL 50 MCG SUBCUT (10:48)
[2018-08-05] MEDS: SODIUM CHLORIDE 0.9% FLUSH 10 ML IV (10:48)
[2018-08-05 13:13] LABS: Bilirubin Direct 0.4 mg/dL (0.0-0.4)
--- NOTE | 2018-08-05 15:33 | P.PN_ITS ---
Subjective Date Patient Seen: 08/05/18 Time Patient Seen: 09:31 Interval history: Edgardo is in reasonable spirits today. He says he feels about the same as yesterday. Feels some movement in his abdomen but has only passed a small amount of flatus. He is accompanied by his family currently and seems to be in a little better spirits. I offered him an opportunity to take a shower today but he says he would like to wait till tomorrow. He did walk in the halls a couple of times today with physical therapy. He denies any nausea. Exam Vital Signs (past 8 hours): - 08/05/18 08:15 08/05/18 08:20 Pulse Oximetry 88 L 96 Oxygen Delivery Method Room Air Oxygen Flow Rate 2 Narrative Exam Narrative: Abdomen remains distended. Hypoactive bowel sounds but improved from yesterday's examination. Hernia in the midline is soft and easily reducible. Objective Labs Result Diagrams: 08/05/18 06:50 08/05/18 06:50 Labs: Laboratory Results - last 24 hr 08/05/18 08/05/18 08/05/18 06:50 06:50 12:49 WBC 11.2 H RBC 2.86 L Hgb 8.7 L Hct 25.5 L MCV 89.2 MCH 30.4 MCHC 34.1 RDW 12.7 Plt Count 224 Neut % (Auto) 76.7 H Lymph % (Auto) 6.2 L [place] % (Auto) 12.7 Eos % (Auto) 4.2 H Baso % (Auto) 0.2 Neut # (Auto) 8600 H Lymph # (Auto) 700 L [place] # (Auto) 1400 H Eos # (Auto) 500 H Baso # (Auto) 0 Sodium 139 Potassium 4.2 Chloride 101 Carbon Dioxide 31 BUN 52 H Creatinine 1.20 Estimated GFR 58.0 L BUN/Creatinine Ratio 43.3 H Glucose 171 H Calcium 8.0 L Magnesium 2.2 Total Bilirubin 1.5 H Direct Bilirubin 0.4 AST 34 ALT 54 Alkaline Phosphatase 86 Total Protein 6.0 L Albumin 2.9 L Globulin 3.1 Albumin/Globulin Ratio 0.9 L Assessment & Plan Plan: Assessment/Plan Narrative: Continue TPN watchful waiting. NG tube drainage has notably decreased in the last 24 hr. We will plan to start clamping his NG tube in the morning for 2 hr at a time. We will check residuals. Quality VTE Deep Vein Thrombosis/Pulmonary Embolism Present on Admission: No
[2018-08-05] MEDS: METHYLNALTREXONE 12 MG/0.6 ML VIAL SUBCUT (15:37)
--- NOTE | 2018-08-05 16:30 | OT.IP.TRT ---
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, lumbar region without neurogenic claudication (07/31/18) Abdominal distension (gaseous) (07/31/18) Personal history of other medical treatment (07/31/18) Arthrodesis status (07/31/18) Surgery Performed Operation Date: 07/31/18 07:45 <No data on this case meets the specified criteria> Operation Date: 07/31/18 07:45 Actual Procedures p L2-3,L3-4 TLIF - L4-5,L5-S1 HWR & exploration of fusion, L2-S1 PSF w/Instru - Alyse Gallo MD Occupational Therapy Treatment Note M2 OT-IP Current Condition Start: 08/01/18 14:24 Freq: Status: Active Protocol: Document 08/01/18 14:25 CCC (Rec: 08/01/18 15:09 [facility] [email or web address]) Occupational Therapy Current Condition Current Condition Evaluation Date 08/01/18 Treatment Diagnosis Lumbar stenosis Diagnosis Onset Date 07/31/17 Post Operative Precautions Lumbar Precautions Log Roll No Twisting Limit Bending Lifting Restriction of 10 lbs Gait Belt above Incisional Area Weight Bearing Status Weight Bearing Status Weight Bear as Tolerated M3 OT- IP Subjective and Pain Start: 08/01/18 14:24 Freq: Status: Active Protocol: Document 08/05/18 16:29 CCC (Rec: 08/05/18 16:30 [facility] [id number]) OT- Subjective Occupational Therapy Visit Type Type Patient Refusal Notes NG tube in place and pt not wanting to do OT treatment at this time, therefore check on pt in the morning for OT therapy.
[2018-08-05] MEDS: FAT EMULSIONS 50 GM/250 ML EMULSION IV (18:01)
[2018-08-05] MEDS: AA 5 %/CALCIUM/LYTES/DEXT 20 % 2,000 ML with MULTIVITAMIN 10 ML, TRACE ELEMENTS 1 ML, I... 83.796 ML IV (18:01)
[2018-08-05] MEDS: TETRACAINE/BENZOCAINE/BUTAMBEN (CETACAINE) BOTTLE 1 SPRAY TOP (21:40)
[2018-08-05] MEDS: BENZOCAINE/MENTHOL 1 LOZ PKT 1 EACH PO (21:40)
--- NOTE | 2018-08-05 22:24 | PC.NURSE ---
Hien shift note: Patient awake, alert, and calm. Ambulated in hallway, multiples times. Continue with NGT, green drainage noted 125ml this shift. Pain well controlled with [employer] TECHNICIAN Morphine. Uses it appropriately. Uses call light for needs.
[2018-08-06] VITALS (8 sets, daily range): BP systolic 130–140; BP diastolic 54–70; PULSE 82–97; RESP 16–20; TEMP 36.9–37.4; O2SAT 88–98
--- NOTE | 2018-08-06 | DI.RAD.S_ITS ---
PROCEDURE: XR CHEST 1V INDICATIONS: Leukocystosi, Bowel obstruction TECHNIQUE: One view of the chest was acquired. COMPARISON: [facility], CR, XR CHEST FOR PICC 1V, 08/04/2018, 16:50. [facility], CR, XR CHEST 1V, 08/02/2018, 22:27. FINDINGS: Surgical changes and devices: A left-sided PICC line catheter is positioned with the tip overlying the expected location of the low superior vena cava. Nasogastric tube is seen extending below the diaphragm and likely positioned within the stomach. Surgical clips and within the left upper quadrant/subdiaphragmatic region. Lungs and pleura: No pleural effusions or pneumothorax. Interstitial prominence within the lung bases is identified that is the slightly less prominent on the current study, compared to the most recent exam. No lobar consolidation, large effusion, or pneumothorax is evident. Mediastinum: Mediastinal contours appear normal. Heart size is normal. There is aortic atherosclerosis. Bones and chest wall: No suspicious bony lesions. Overlying soft tissues appear unremarkable. IMPRESSION: 1. Mild bibasilar atelectasis versus less likely pneumonia. 2. Tubes and lines, as described. Dictated by: Mick Bond M.D. on 08/06/2018 at 11:11 Approved by: Mick Bond M.D. on 08/06/2018 at 11:13
[2018-08-06] MEDS: INSULIN REGULAR 100 UNIT/ML 3 ML VIAL SUBCUT ×2 (00:02→13:18)
[2018-08-06] MEDS: SODIUM CHLORIDE 0.9% 1,000 ML 125 ML IV (00:09)
--- NOTE | 2018-08-06 06:22 | PM.PN.1 ---
Subjective Date Patient Seen: 08/06/18 Interval history: Edgardo Cotter is an 83-year-old male with a past medical history significant for CAD, hypertension, hyperlipidemia, anxiety, depression, multiple abdominal surgeries including, previous lysis of adhesions, who is now status post extensive lumbar spinal surgery in which we were consulted for postop ileus versus SBO and medical management of multiple comorbidities. Overnight: The patient was stable and there were no acute events. The patient is resting in bed comfortably and in no acute distress. He reports he is doing slightly better than yesterday. He is still in low spirits as he is not used to being this inactive. He continues to endorse pain in his oropharynx related to the NG tube. He reports small amount of flatus but no further bowel movements. He denies headache, shortness of breath, chest pain, abdominal pain, nausea, vomiting, fever, chills, dysuria, diarrhea or constipation. He is voiding without difficulty. He is up ambulating with assistance. Exam Vital Signs (past 8 hours): - 08/05/18 23:57 08/06/18 04:44 Temperature 99.0 F 98.5 F Pulse Rate 95 H 87 Respiratory Rate 16 18 Blood Pressure 138/61 135/61 Pulse Oximetry 89 L 94 Oxygen Delivery Method Nasal Cannula Oxygen Flow Rate 1.5 Narrative Exam Narrative: General: Middle-aged gentleman lying in bed and in no acute distress, well-developed, well-nourished, appropriately interactive. HEENT: Normocephalic, atraumatic. External ears without defect. Pupils equal, round, and reactive to light and accommodation. Anicteric sclerae, moist conjunctivae, and no lid lag. NG tube in place. Neck: Supple with full range of motion. No lymphadenopathy or thyromegaly. Cardiovascular: Regular rate and rhythm without murmurs, rubs, or gallops appreciated Pulmonary: Clear to auscultation bilaterally without crackles, wheezes, or rhonchi. Normal respiratory effort with no use of accessory muscles. Abdomen: Soft, hypoactive bowel sounds but present, diffuse mild tenderness to palpation, mild distension. No rebound or guarding. No hepatosplenomegaly or masses appreciated. Extremities: No clubbing, cyanosis, or edema. Skin: Normal temperature, turgor, and texture; no rash, ulcers, or subcutaneous nodules appreciated. Neurological: Cranial nerves grossly intact. Psychiatric: Depressed mood and flat affect. Alert and oriented to person, place, and time. Objective Labs Result Diagrams: 08/06/18 06:40 08/06/18 06:40 Labs: Laboratory Results - last 24 hr 08/05/18 08/05/18 08/05/18 06:50 06:50 12:49 WBC 11.2 H RBC 2.86 L Hgb 8.7 L Hct 25.5 L MCV 89.2 MCH 30.4 MCHC 34.1 RDW 12.7 Plt Count 224 Neut % (Auto) 76.7 H Lymph % (Auto) 6.2 L [place] % (Auto) 12.7 Eos % (Auto) 4.2 H Baso % (Auto) 0.2 Neut # (Auto) 8600 H Lymph # (Auto) 700 L [place] # (Auto) 1400 H Eos # (Auto) 500 H Baso # (Auto) 0 Sodium 139 Potassium 4.2 Chloride 101 Carbon Dioxide 31 BUN 52 H Creatinine 1.20 Estimated GFR 58.0 L BUN/Creatinine Ratio 43.3 H Glucose 171 H Calcium 8.0 L Magnesium 2.2 Total Bilirubin 1.5 H Direct Bilirubin 0.4 AST 34 ALT 54 Alkaline Phosphatase 86 Total Protein 6.0 L Albumin 2.9 L Globulin 3.1 Albumin/Globulin Ratio 0.9 L Assessment & Plan Plan: Assessment/Plan Narrative: Edgardo Cotter is an 83-year-old male with a past medical history significant for CAD, hypertension, hyperlipidemia, anxiety, depression, multiple abdominal surgeries including, previous lysis of adhesions, who is now status post extensive lumbar spinal surgery in which we were consulted for postop ileus versus SBO and medical management of multiple comorbidities. 1. Acute post-operative Ileus, not present on admission. Improving. -Likely post-op ileus vs. partial SBO. -Chest/Abdominal series demonstrated mild to moderate dilation of fluid-filled small bowel loops consistent with partial small bowel obstruction. Moderate stool is present suggestive constipation. -Patient has had a small BM and passing flatus. Given a dose of relistor for chronic opiate induced constipation. -NG tube in place with decreased drainage today. Surgery plans to start clamping NG tube tomorrow. -Octreotide was given to decrease GI secretions and discontinued today as secretions have significantly decreased. -General surgery is following and started TPN 1/13. The patient is still slightly prerenal and IVF are with NS at 75mL/hr. Does not have a free water deficit. 2. Acute laryngospasm, not present on admission. Resolved. -Consider reactive laryngospasm due to irritation of abdominal content distension/NG tube diaphragm irritation. -Consider Baclofen or haldol for spasm relief if no spontaneous relief. The symptoms seem to be improved. -Oral home medications have been switched to equivalent IV, liquid form, or held (see below). Plan to switch back to oral after NG tube is discontinued and tolerating PO intake. 3. Acute extensive lumbar spinal surgery, not present on admission. Active -Defer to orthopedic notes for postoperative observation. Discussed with Dr. Armendariz today. 4. Acute leukocytosis, present on admission. Improving. -WBC trending down from 25 to 12.1. As mentioned in previous notes, the leukocytosis is likely due to steroid addition and not an infectious process or dural leak. 5. Depression, chronic, present on admission. Stable. -Continue with oral venlafaxine, crushed, to avoid withdrawal - with the understanding of incomplete absorption due to the NGT. 6. Anxiety, chronic, present on admission. Stable. -He has a longstanding anxiety with benzodiazapine dependency. Will continue lorazepam IV as needed. 7. CAD, chronic, present on admission. Stable. -Patient NPO and held PO meds losartan, atorvastatin, HCTZ. -Ordered IV Labetalol and hydralazine as needed while NPO. 8. Hypertension, chronic, present on admission. Stable. -Patient NPO and held PO meds HCTZ and losartan. -Ordered labetalol and hydralazine as needed IV equivalents. 9. Hyperlipedemia, chronic, present on admission. Stable. - Held PO meds atorvastatin. 10. GERD, chronic, present on admission. Stable. - Continue home PPI with Protonix IV. Thank you for allowing us to participate in this patients care. We will continue to follow along with you. Quality VTE Deep Vein Thrombosis/Pulmonary Embolism Present on Admission: No
[2018-08-06 07:03] LABS: Add Manual Diff / Slide Review NO; Basophils Absolute Auto 0 /uL (0-100); Basophils Percent Auto 0.3 % (0-2); Eosinophils Absolute Auto 1000 /uL (0-450); Eosinophils Percent Auto 7.3 % (2-4); Hemoglobin 8.1 g/dL (13.5-17.5); Lymphocytes Absolute Auto 1000 /uL (1100-4500); Lymphocytes Percent Auto 7.7 % (25-40); Mean Corpuscular HGB Conc 32.5 % (30-36); Mean Corpuscular Hemoglobin 29.7 PG (26-34); Mean Corpuscular Volume 91.2 fL (80-100); Monocytes Absolute Auto 2100 /uL (0-900); Monocytes Percent Auto 15.5 % (3-14); Neutrophils Absolute Auto 9400 /uL (1500-7000); Neutrophils Percent Auto 69.2 % (50-75); Platelet Count 216 X10^3/uL (150-400); Red Blood Cell Count 2.74 X10^6/uL (4.5-5.9); Red Cell Distribution Width 12.9 % (11.6-14.8); White Blood Cell Count 13.7 X10^3/uL (4.5-11.0)
[2018-08-06 07:18] LABS: Alanine Aminotransferase 81 IU/L (21-72); Albumin 2.8 g/dL (3.5-5.0); Alkaline Phosphatase 93 U/L (38-126); Aspartate Aminotransferase 55 IU/L (17-59); BUN Creatinine Ratio 41.1 (6-22); Bilirubin Total 1.2 mg/dL (0.2-1.3); Blood Urea Nitrogen 37 mg/dL (9-20); Calcium 7.8 mg/dL (8.4-10.2); Carbon Dioxide 30 mmol/L (22-32); Chloride 103 mmol/L (98-107); Estimated Glomerular Filt Rate > 60.0 mL/min (>60); Globulin 2.9 g/dL (1.7-4.1); Glucose 153 mg/dL (80-110); HEMOLYSIS < 15 (0-50); Sodium 141 mmol/L (137-145); Total Protein 5.7 g/dL (6.3-8.2)
[2018-08-06] MEDS: MORPHINE PCA 30 MG/30 ML PCA.VIAL IV ×3 (07:20→23:25)
--- NOTE | 2018-08-06 08:37 | PM.PNPO.1 ---
Subjective Date Patient Seen: 08/06/18 Time Patient Seen: 08:38 Interval history: Hospital day 7, postop day 6 following lumbar spinal fusion by Dr. Gallo. Patient developed a postoperative ileus. Has had an NG-tube in since postop day 3. He is being followed by hospitalist and surgeon. Patient was up and around room and in the hallway ambulating yesterday. He is taking most of his medications by IV. Exam Vital Signs (past 8 hours): - 08/06/18 04:44 08/06/18 07:20 Temperature 98.5 F 99.3 F Pulse Rate 87 83 Respiratory Rate 18 16 Blood Pressure 135/61 134/65 Pulse Oximetry 94 96 Oxygen Delivery Method Nasal Cannula Oxygen Flow Rate 0 Narrative Exam Narrative: Alert, oriented no acute distress lying in bed. Back. The dressing to lumbar area is dry without drainage or inflammation. Legs. No calf pain or swelling. Pulses and sensation symmetrical. Objective Labs Result Diagrams: 08/06/18 06:40 08/06/18 06:40 Labs: Laboratory Results - last 24 hr 08/05/18 08/06/18 08/06/18 12:49 06:40 06:40 WBC 13.7 H RBC 2.74 L Hgb 8.1 L Hct 25.0 L MCV 91.2 MCH 29.7 MCHC 32.5 RDW 12.9 Plt Count 216 Neut % (Auto) 69.2 Lymph % (Auto) 7.7 L [place] % (Auto) 15.5 H Eos % (Auto) 7.3 H Baso % (Auto) 0.3 Neut # (Auto) 9400 H Lymph # (Auto) 1000 L [place] # (Auto) 2100 H Eos # (Auto) 1000 H Baso # (Auto) 0 Sodium 141 Potassium 4.0 Chloride 103 Carbon Dioxide 30 BUN 37 H Creatinine 0.90 Estimated GFR > 60.0 BUN/Creatinine Ratio 41.1 H Glucose 153 H Calcium 7.8 L Total Bilirubin 1.2 Direct Bilirubin 0.4 AST 55 ALT 81 H Alkaline Phosphatase 93 Total Protein 5.7 L Albumin 2.8 L Globulin 2.9 Albumin/Globulin Ratio 1.0 Assessment & Plan Post-op Postoperative Procedures Operation Date: 07/31/18 07:45 <No data on this case meets the specified criteria> Operation Date: 07/31/18 07:45 Actual Procedures Side Surgeon p L2-3,L3-4 TLIF - L4-5,L5-S1 HWR & exploration of fusion, L2-S1 PSF w/Instru Alyse Gallo MD Plan: Patient is orthopedically stable. Continue with PT as needed. Continue being followed by hospitalist and surgeon for medical and ileus problems. Discharge pending clearance by hospitalist and surgeon. Quality VTE Deep Vein Thrombosis/Pulmonary Embolism Present on Admission: No
[2018-08-06] MEDS: SODIUM CHLORIDE 0.9% 1,000 ML 75 ML IV (09:00)
[2018-08-06] MEDS: SODIUM CHLORIDE 0.9% FLUSH 10 ML IV (10:05)
[2018-08-06] MEDS: PANTOPRAZOLE 40 MG VIAL IV (10:05)
[2018-08-06] MEDS: LORazepam 2 MG/ML SYRINGE 0.5 MG IV ×2 (11:38→20:46)
--- NOTE | 2018-08-06 11:57 | PM.PN.1 ---
Subjective Date Patient Seen: 08/06/18 Time Patient Seen: 11:58 Interval history: Mr. Cotter is a bit frustrated this morning. He feels like he is having more activity within his abdomen but he simply does not feel well this morning. He says he is getting grumpy. He denies any severe pain. He can't put his finger on what's wrong but he says he just does not feel well. He adds that he does have quite a productive cough and brings up a lot of phlegm. He does have a chronic indwelling urinary catheter but reports that he has continued to change on his usual schedule. Exam Vital Signs (past 8 hours): - 08/06/18 04:44 08/06/18 07:20 08/06/18 10:32 Temperature 98.5 F 99.3 F Pulse Rate 87 83 Respiratory Rate 18 16 Blood Pressure 135/61 134/65 Pulse Oximetry 94 96 98 08/06/18 10:35 Temperature Pulse Rate Respiratory Rate Blood Pressure Pulse Oximetry 88 L Oxygen Delivery Method Room Air Oxygen Flow Rate 0 Narrative Exam Narrative: Abdomen is softer than before. Hernia is soft and easily reducible. He has scattered bowel sounds. Still hypoactive but improving daily. NG tube drainage is minimal. Objective Labs Result Diagrams: 08/06/18 06:40 08/06/18 06:40 Labs: Laboratory Results - last 24 hr 08/05/18 08/06/18 08/06/18 12:49 06:40 06:40 WBC 13.7 H RBC 2.74 L Hgb 8.1 L Hct 25.0 L MCV 91.2 MCH 29.7 MCHC 32.5 RDW 12.9 Plt Count 216 Neut % (Auto) 69.2 Lymph % (Auto) 7.7 L [place] % (Auto) 15.5 H Eos % (Auto) 7.3 H Baso % (Auto) 0.3 Neut # (Auto) 9400 H Lymph # (Auto) 1000 L [place] # (Auto) 2100 H Eos # (Auto) 1000 H Baso # (Auto) 0 Sodium 141 Potassium 4.0 Chloride 103 Carbon Dioxide 30 BUN 37 H Creatinine 0.90 Estimated GFR > 60.0 BUN/Creatinine Ratio 41.1 H Glucose 153 H Calcium 7.8 L Total Bilirubin 1.2 Direct Bilirubin 0.4 AST 55 ALT 81 H Alkaline Phosphatase 93 Total Protein 5.7 L Albumin 2.8 L Globulin 2.9 Albumin/Globulin Ratio 1.0 Assessment & Plan Plan: Assessment/Plan Narrative: 1. Continued ileus. We will try clamping his NG tube today and see how he does. Will start with 2 hr and check residual. 2. White count is going down the wrong direction. I will check a chest x-ray as well as urinalysis and see if we are missing a source of infection. 3. Encouraged patient to ambulate and to shower when he is feeling a bit stronger. Quality VTE Deep Vein Thrombosis/Pulmonary Embolism Present on Admission: No
--- NOTE | 2018-08-06 12:01 | P.PN_ITS ---
Subjective Date Patient Seen: 08/06/18 Time Patient Seen: 11:58 Interval history: Mr. Cotter is a bit frustrated this morning. He feels like he is having more activity within his abdomen but he simply does not feel well this morning. He says he is getting grumpy. He denies any severe pain. He can' t put his finger on what's wrong but he says he just does not feel well. He adds that he does have quite a productive cough and brings up a lot of phlegm. He does have a chronic indwelling urinary catheter but reports that he has continued to change on his usual schedule. Exam Vital Signs (past 8 hours): - 08/06/18 04:44 08/06/18 07:20 08/06/18 10:32 Temperature 98.5 F 99.3 F Pulse Rate 87 83 Respiratory Rate 18 16 Blood Pressure 135/61 134/65 Pulse Oximetry 94 96 98 08/06/18 10:35 Temperature Pulse Rate Respiratory Rate Blood Pressure Pulse Oximetry 88 L Oxygen Delivery Method Room Air Oxygen Flow Rate 0 Narrative Exam Narrative: Abdomen is softer than before. Hernia is soft and easily reducible. He has scattered bowel sounds. Still hypoactive but improving daily. NG tube drainage is minimal. Objective Labs Result Diagrams: 08/06/18 06:40 08/06/18 06:40 Labs: Laboratory Results - last 24 hr 08/05/18 08/06/18 08/06/18 12:49 06:40 06:40 WBC 13.7 H RBC 2.74 L Hgb 8.1 L Hct 25.0 L MCV 91.2 MCH 29.7 MCHC 32.5 RDW 12.9 Plt Count 216 Neut % (Auto) 69.2 Lymph % (Auto) 7.7 L [place] % (Auto) 15.5 H Eos % (Auto) 7.3 H Baso % (Auto) 0.3 Neut # (Auto) 9400 H Lymph # (Auto) 1000 L [place] # (Auto) 2100 H Eos # (Auto) 1000 H Baso # (Auto) 0 Sodium 141 Potassium 4.0 Chloride 103 Carbon Dioxide 30 BUN 37 H Creatinine 0.90 Estimated GFR > 60.0 BUN/Creatinine Ratio 41.1 H Glucose 153 H Calcium 7.8 L Total Bilirubin 1.2 Direct Bilirubin 0.4 AST 55 ALT 81 H Alkaline Phosphatase 93 Total Protein 5.7 L Albumin 2.8 L Globulin 2.9 Albumin/Globulin Ratio 1.0 Assessment & Plan Plan: Assessment/Plan Narrative: 1. Continued ileus. We will try clamping his NG tube today and see how he does. Will start with 2 hr and check residual. 2. White count is going down the wrong direction. I will check a chest x-ray as well as urinalysis and see if we are missing a source of infection. 3. Encouraged patient to ambulate and to shower when he is feeling a bit stronger. Quality VTE Deep Vein Thrombosis/Pulmonary Embolism Present on Admission: No
--- NOTE | 2018-08-06 12:11 | PT.IPTN ---
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, lumbar region without neurogenic claudication (07/31/18) Abdominal distension (gaseous) (07/31/18) Personal history of other medical treatment (07/31/18) Arthrodesis status (07/31/18) Surgery Performed Operation Date: 07/31/18 07:45 <No data on this case meets the specified criteria> Operation Date: 07/31/18 07:45 Actual Procedures p L2-3,L3-4 TLIF - L4-5,L5-S1 HWR & exploration of fusion, L2-S1 PSF w/Instru - Alyse Gallo MD Physical Therapy Treatment Note M2 PT-IP Current Condition Start: 07/31/18 15:46 Freq: NEEDED Status: Active Protocol: Document 08/01/18 13:20 AB (Rec: 08/01/18 15:56 AB [id number]) Physical Therapy Current Condition Current Condition Evaluation Date 08/01/18 Treatment Diagnosis s/p L2-4 TLIF, difficulty in walking Onset Date 07/31/18 Precautions Lumbar Precautions Log Roll No Twisting Limit Bending Lifting Restriction of 10 lbs Gait Belt above Incisional Area M3 PT-IP Subjective Start: 07/31/18 15:46 Freq: NEEDED Status: Active Protocol: Document 08/06/18 10:40 CLB (Rec: 08/06/18 12:11 CLB [email or web address]) Subjective Physical Therapy Visit Type Type Treatment Note Visit Start Time 10:40 Visit Stop Time 11:10 Total Visit Minutes 30 Number of [employer] Visits 6 Physical Therapy Visit Comments Patient Comments Pt agreeable to do therapy. Therapy Pain Assessment Pain When Pain Assessed At Rest Pain Present Pain Present Pain Reported M4 PT-IP Mobility and Gait Start: 07/31/18 15:46 Freq: NEEDED Status: Active Protocol: Document 08/06/18 10:40 CLB (Rec: 08/06/18 12:11 CLB [email or web address]) PT-Bed Mobility Assessment Rolling Type of Rolling Log Rolling Level of Assist Standby Assistance Supine to Sit Supine to Sit Standby Assistance 1 Person Assistance Bedrails Scooting Scooting to Edge of Bed Standby Assistance PT-Transfer Assessment Sit to and From Stand Sit to and from Stand Standby Assistance Use of Upper Extremities Equipment Transfer Assistive Device Gait Belt Front Wheeled Walker Orthotic/Prosthetic Devices or Brace: No Transfers Transfer Destination Chair Transfer Ability Level of Assist Standby Assistance Use of Upper Extremities Gait Assessment Gait Gait Assistance Required: Standby Assistance Distance (Feet) 900 Able to Maintain Weight Bearing Status Yes During Gait Assistive Devices Assistive Device Gait Belt Front Wheeled Walker Orthotic/Prosthetic Devices or Brace: No Gait Deviations General Gait Pattern Decreased Stride Length Decreased Feet Clearance Factors Limiting Gait Function Factors Limiting Gait Function Decreased Activity Tolerance Decreased Strength Pain Comments Gait Comments Pt ambulated SBA with assist of O2 tank and IV lines. Pt O2 during ambulation remained above 92% Stair Climbing Assessment Evaluation Level of Assist On Stairs Contact Guard Assistance Devices Stair Climbing Assistive Devices Front Wheel Walker Technique/Endurance Stair Climbing Direction Ascend and Descend Stair Climbing Technique Step to Step Number of Steps Climbed 1 Query Text: Stair Climbing Set # Repetitions (reps) 1 M5 PT-IP Objective Assessments Start: 07/31/18 15:46 Freq: NEEDED Status: Active Protocol: Document 08/01/18 13:20 AB (Rec: 08/01/18 15:56 AB [id number]) Orientation Orientation/Cognition Level of Alertness Alert Orientation Name Age Birthday Month Date Year Day of Week Place Situation Gross Range of Motion Lower Extremity ROM Assessment Within Functional Limits Strength Lower Extremity Strength Assessment Left Impaired Hip 3+/5 Knee 3+/5 Sensation Assessment Sensation Gross Sensation WNL M6 PT-IP Treatment Start: 07/31/18 15:46 Freq: NEEDED Status: Active Protocol: Document 08/04/18 10:30 CLB (Rec: 08/04/18 13:07 CLB [id number]) Physical Therapy Treatment Education Education Provided Precautions M7 PT-IP Assessment and Plan Start: 07/31/18 15:46 Freq: NEEDED Status: Active Protocol: Document 08/06/18 10:40 CLB (Rec: 08/06/18 12:11 CLB [email or web address]) PT Summary Assessment and Plan Summary Assessment Summary Pt increased gait distance with no need of standing rest break. Pt doing well with log roll and transfers requiring SBA. Pt performed stair training CGA with cues for sequencing. Goals Bed Mobility Goal Standby Assistance Transfer Goal Standby Assistance Front Wheeled Walker Gait Goal Standby Assistance Front Wheel Walker Gait Distance 200 Other Goals up/down 1 step using FWW Days to Meet Goals 5 Frequency of Treatment Frequency Of Treatment Once a Day Treatment Plan Physical Therapy Treatment Plan Bed Mobility Training Transfer Training Gait Training Therapeutic Exercise Balance Retraining Post Op Education Discharge Planning Hot or Cold Pack Neuromuscular Re-ed Coordination Retraining Manual Therapy Other Recommendations and Next Treatment ambulation, stair climbing Focus Recommendations To Nursing Amount of Assist Needed 1 Person Assist Discharge Recommendations PT Discharge Recommendations Home with Assistance Equipment Needed for Home Before Pt's is getting a FWW Discharge
[2018-08-06 12:35] LABS: Appearance Urine UA CLOUDY; Bilirubin Urine UA NEGATIVE (NEGATIVE); Color Urine UA YELLOW; Glucose Urine UA NEGATIVE (Negative); Ketones Urine UA NEGATIVE (NEGATIVE); Leukocyte Esterase Urine UA 1+ (NEGATIVE); Nitrite Urine UA POSITIVE (Negative); Occult Blood Urine UA TRACE-LYSED (Negative); Protein Urine UA NEGATIVE (Negative); Specific Gravity Urine UA 1.015 (1.000-1.035); pH Urine UA 6.5 (4.5-8.0)
[2018-08-06 12:45] LABS: Amorphous Sediment Urine 1+; Bacteria Urine Many (>30); RBC Urine 0-1/HPF (0-5/HPF); Squamous Epithelial Cell Urine 0-1 /HPF; WBC Urine 10-30/HPF (0-5/HPF)
[2018-08-06 12:46] LABS: Culture Indicated Urine Specimen Cultured
[2018-08-06] MEDS: VENLAFAXINE 37.5 MG TABLET PO ×2 (13:18→20:53)
--- NOTE | 2018-08-06 14:01 | OT.IP.TRT ---
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, lumbar region without neurogenic claudication (07/31/18) Abdominal distension (gaseous) (07/31/18) Personal history of other medical treatment (07/31/18) Arthrodesis status (07/31/18) Surgery Performed Operation Date: 07/31/18 07:45 <No data on this case meets the specified criteria> Operation Date: 07/31/18 07:45 Actual Procedures p L2-3,L3-4 TLIF - L4-5,L5-S1 HWR & exploration of fusion, L2-S1 PSF w/Instru - Alyse Gallo MD Occupational Therapy Treatment Note M2 OT-IP Current Condition Start: 08/01/18 14:24 Freq: Status: Active Protocol: Document 08/01/18 14:25 CCC (Rec: 08/01/18 15:09 [facility] [email or web address]) Occupational Therapy Current Condition Current Condition Evaluation Date 08/01/18 Treatment Diagnosis Lumbar stenosis Diagnosis Onset Date 07/31/17 Post Operative Precautions Lumbar Precautions Log Roll No Twisting Limit Bending Lifting Restriction of 10 lbs Gait Belt above Incisional Area Weight Bearing Status Weight Bearing Status Weight Bear as Tolerated M3 OT- IP Subjective and Pain Start: 08/01/18 14:24 Freq: Status: Active Protocol: Document 08/06/18 14:00 CCC (Rec: 08/06/18 14:01 [facility] [email or web address]) OT- Subjective Occupational Therapy Visit Type Type Patient Refusal Notes Pt refusing to shower , but promised to take a shower tomorrow at 9AM for OT treatment.
[2018-08-06] MEDS: levoFLOXacin 500 MG/100 ML PIGGYBACK 100 MG IV (14:17)
[2018-08-06] MEDS: AA 5 %/CALCIUM/LYTES/DEXT 20 % 2,000 ML with MULTIVITAMIN 10 ML, TRACE ELEMENTS 1 ML, I... 83.796 ML IV (18:35)
[2018-08-06] MEDS: FAT EMULSIONS 50 GM/250 ML EMULSION IV (18:36)
--- NOTE | 2018-08-06 19:10 | PC.NURSE ---
Addendum entered by Claudia Iverson R.N. 08/06/18 22:15: Pt agitated, thinking that meds are scheduled. When discussing topic, pt referring to ativan, which is orderd every 6 prn. Pt requests Q 6 routinely. Med at 2040 w/0.5mg ativan w/ good results. TPN, Lipids and NS infusing via pump as per orders w/o incidense Appears to be resting calmly now. Call light w/in reach, bed alaarm on for pt safety. Continue w/plan of care. Original Note: Pt assisted to BR. Pt Lungs decreased SpO2 95% on 2L. 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 Call light w/in reach, bed alarm on for pt safety.
[2018-08-07] MEDS: ONDANSETRON 4 MG/2 ML INJ IV ×2 (00:02→06:22)
[2018-08-07] MEDS: SODIUM CHLORIDE 0.9% FLUSH 10 ML IV ×2 (00:03→11:52)
[2018-08-07] MEDS: BENZOCAINE/MENTHOL 1 LOZ PKT 1 EACH PO (00:19)
[2018-08-07 00:22] VITALS: BP 126/61; PULSE 91; RESP 20; TEMP 37.3; O2SAT 93
[2018-08-07] MEDS: LORazepam 2 MG/ML SYRINGE 0.5 MG IV (03:26)
[2018-08-07] MEDS: MORPHINE PCA 30 MG/30 ML PCA.VIAL IV ×3 (06:22→22:25)
--- NOTE | 2018-08-07 06:22 | P.PN_ITS ---
Subjective Date Patient Seen: 08/07/18 Interval history: Edgardo Cotter is an 83-year-old male with a past medical history significant for CAD, hypertension, hyperlipidemia, anxiety, depression, multiple abdominal surgeries including, previous lysis of adhesions, who is now status post extensive lumbar spinal surgery in which we were consulted for postop ileus versus SBO and medical management of multiple comorbidities. Overnight: The patient was stable and there were no acute events. Per nursing staff, the patient was quite confused this morning stating that he would like to return to the [facility]. However, upon my interview this morning the patient is alert and oriented x3. His mentation seems to wax and wane. Today he is resting in the bedside chair and appears mildly uncomfortable. He states that he ?feels like crap all over? but is doing about the same as yesterday. His abdomen is soft and non-tender today. He continues to endorse throat and esophageal pain related to the NG tube and is now having persistent hiccups. He is still producing a small amount of flatus daily. He denies headache, shortness of breath, chest pain, abdominal pain, nausea, vomiting, fever, chills, dysuria, diarrhea or constipation. He is voiding without difficulty. He has had a small BM since surgery but has not had another since 08/03. He is up ambulating with assistance. Exam Vital Signs (past 8 hours): - 08/06/18 22:27 08/07/18 00:22 Temperature 99.1 F Pulse Rate 91 H Respiratory Rate 20 Blood Pressure 126/61 Pulse Oximetry 97 93 Oxygen Delivery Method Nasal Cannula Oxygen Flow Rate 2 Narrative Exam Narrative: General: Middle-aged gentleman lying in bedside chair, appears mildly uncomfortable but in no acute distress, well-developed, well-nourished, appropriately interactive. HEENT: Normocephalic, atraumatic. External ears without defect. Pupils equal, round, and reactive to light and accommodation. Anicteric sclerae, moist conjunctivae, and no lid lag. NG tube in place with minimal drainage. Neck: Supple with full range of motion. No lymphadenopathy or thyromegaly. Cardiovascular: Regular rate and rhythm without murmurs, rubs, or gallops appreciated Pulmonary: Clear to auscultation bilaterally without crackles, wheezes, or rhonchi. Normal respiratory effort with no use of accessory muscles. Abdomen: Softer than yesterday with more apparent bowel sounds. No longer has diffuse mild tenderness to palpation. Mild distension/protuberant. No rebound or guarding. No hepatosplenomegaly or masses appreciated. Small umbilical hernia reducible. Extremities: No clubbing, cyanosis, or edema. Skin: Normal temperature, turgor, and texture; no rash, ulcers, or subcutaneous nodules appreciated. Neurological: Cranial nerves grossly intact. Psychiatric: Depressed mood and flat affect. Alert and oriented to person, place, and time. Objective Labs Result Diagrams: 08/07/18 07:45 08/07/18 07:45 Labs: Laboratory Results - last 24 hr 08/06/18 08/06/18 08/06/18 06:40 06:40 11:40 WBC 13.7 H RBC 2.74 L Hgb 8.1 L Hct 25.0 L MCV 91.2 MCH 29.7 MCHC 32.5 RDW 12.9 Plt Count 216 Neut % (Auto) 69.2 Lymph % (Auto) 7.7 L [place] % (Auto) 15.5 H Eos % (Auto) 7.3 H Baso % (Auto) 0.3 Neut # (Auto) 9400 H Lymph # (Auto) 1000 L [place] # (Auto) 2100 H Eos # (Auto) 1000 H Baso # (Auto) 0 Sodium 141 Potassium 4.0 Chloride 103 Carbon Dioxide 30 BUN 37 H Creatinine 0.90 Estimated GFR > 60.0 BUN/Creatinine Ratio 41.1 H Glucose 153 H Calcium 7.8 L Total Bilirubin 1.2 AST 55 ALT 81 H Alkaline Phosphatase 93 Total Protein 5.7 L Albumin 2.8 L Globulin 2.9 Albumin/Globulin Ratio 1.0 Urine Color Yellow Urine Appearance Cloudy Urine pH 6.5 Ur Specific [place] 1.015 Urine Protein Negative Urine Glucose (UA) Negative Urine Ketones Negative Urine Occult Blood Trace-lysed Urine Nitrate Positive Urine Bilirubin Negative Urine Urobilinogen 2.0 H Ur Leukocyte Esterase 1+ H Urine RBC 0-1/hpf Urine WBC 10-30/hpf H Ur Squamous Epith Cells 0-1 /hpf Amorphous Sediment 1+ Urine Bacteria Many (>30) H Ur Culture Indicated? Specimen cultured Assessment & Plan Plan: Assessment/Plan Narrative: Edgardo Cotter is an 83-year-old male with a past medical history significant for CAD, hypertension, hyperlipidemia, anxiety, depression, multiple abdominal surgeries including, previous lysis of adhesions, who is now status post extensive lumbar spinal surgery in which we were consulted for postop ileus versus SBO and medical management of multiple comorbidities. 1. Acute post-operative Ileus, not present on admission. Improving. -Chest/Abdominal series demonstrated mild to moderate dilation of fluid- filled small bowel loops consistent with partial small bowel obstruction. Moderate stool is present suggestive constipation. Repeat abdominal series demonstrated postop ileus that is improving compared to 08/02/18. -Patient has had a small BM 08/03 and is passing flatus. Given a dose of relistor for chronic opiate induced constipation. -NG tube continues to have minimal output and has been clamped per surgery. May possibly consider removing NG tube will wait for surgery's recommendation. -Octreotide was given to decrease GI secretions and has been discontinued as secretions decreased substantially. -General surgery is following and started TPN on 08/04. The patient is still slightly prerenal and IVF are with NS at 75mL/hr. Does not have a free water deficit. 2. Acute gram-negative urinary tract infection, secondary to chronic indwelling catheter, not present on admission. Active. -Leukocytosis has been trending up since 08/05. -General surgery ordered chest x-ray and urinalysis. Urine culture preliminarily growing gram-negative bacilli. -Continue levofloxacin 750 mg daily pending culture and sensitivities. If leukocytosis does not improve in the next 24 hr, worsening signs of infection, or his mentation worsens will consider broadening antibiotic coverage but believe at this point it is still early in treatment of UTI. 3. Acute laryngospasm, not present on admission. Ongoing. -Consider reactive laryngospasm due to NG tube causing diaphragm irritation. -Ordered baclofen 10 mg q.6 hours as needed for hiccups/laryngospasm. -Oral home medications have been switched to equivalent IV, liquid form, or held (see below). Plan to switch back to oral after NG tube is discontinued and tolerating PO intake. 4. Acute extensive lumbar spinal surgery, not present on admission. Active -Defer to orthopedic notes for postoperative observation. Discussed with Dr. Armendariz today. 5. Acute leukocytosis, present on admission. Improving. -WBC trending down from 25 to 12.1. As mentioned in previous notes, the leukocytosis is likely due to steroid addition and not an infectious process or dural leak. 6. Depression, chronic, present on admission. Stable. -Continue with oral venlafaxine, crushed, to avoid withdrawal - with the understanding of incomplete absorption due to the NGT. 7. Anxiety, chronic, present on admission. Stable. -He has a longstanding anxiety with benzodiazapine dependency. Will continue lorazepam IV as needed. 8. CAD, chronic, present on admission. Stable. -Patient NPO and held PO meds losartan, atorvastatin, HCTZ. -Ordered IV Labetalol and hydralazine as needed while NPO. 9. Hypertension, chronic, present on admission. Stable. -Patient NPO and held PO meds HCTZ and losartan. -Ordered labetalol and hydralazine as needed IV equivalents. 10. Hyperlipedemia, chronic, present on admission. Stable. - Held PO meds atorvastatin. 11. GERD, chronic, present on admission. Stable. - Continue home PPI with Protonix IV. Thank you for allowing us to participate in this patients care. We will continue to follow along with you. Quality VTE Deep Vein Thrombosis/Pulmonary Embolism Present on Admission: No
[2018-08-07] MEDS: INSULIN REGULAR 100 UNIT/ML 3 ML VIAL SUBCUT ×3 (06:26→18:37)
--- NOTE | 2018-08-07 06:48 | PC.NURSE ---
Addendum entered by Karen Horvath R.N. 08/07/18 07:25: PICC line dressing changed this morning Original Note: Patient belching/hiccuping throughout the shift. Stated he felt a bit nauseous as well so Zofran was given. Bowel tones present, denies passing gas, states maybe one might have slipped out since the other day. No BM over night. No emesis. Abdomen firm, distended. NPO throughout shift. LUE double lumen PICC is clean, dry, and intact. Appears to have a gel CHG pad over securement site. Unable to draw back blood, will pass this along to day shift to tell IV therapy team. He stated this PICC line was put in elsewhere. TPN and lipids continued as ordered. Andres patent with clear yellow urine. Reports 3 out of 10 pain in back, relieved with 4mg Morphine [employer] used for shift. Fingerstick q6h, received 1unit humalog this morning. Ativan given for anxiety with good relief.
[2018-08-07 07:30] VITALS: O2SAT 91
[2018-08-07 07:40] VITALS: O2SAT 95
[2018-08-07 08:00] VITALS: BP 136/61; PULSE 84; RESP 16; TEMP 36.6; O2SAT 97
[2018-08-07 08:07] LABS: Add Manual Diff / Slide Review NO; Basophils Absolute Auto 0 /uL (0-100); Basophils Percent Auto 0.3 % (0-2); Eosinophils Absolute Auto 1200 /uL (0-450); Eosinophils Percent Auto 7.6 % (2-4); Hematocrit 26.2 % (41-53); Hemoglobin 8.5 g/dL (13.5-17.5); Lymphocytes Absolute Auto 1200 /uL (1100-4500); Lymphocytes Percent Auto 7.8 % (25-40); Mean Corpuscular HGB Conc 32.4 % (30-36); Mean Corpuscular Hemoglobin 29.4 PG (26-34); Mean Corpuscular Volume 90.9 fL (80-100); Monocytes Absolute Auto 2400 /uL (0-900); Neutrophils Absolute Auto 10400 /uL (1500-7000); Neutrophils Percent Auto 68.3 % (50-75); Platelet Count 268 X10^3/uL (150-400); Red Blood Cell Count 2.88 X10^6/uL (4.5-5.9); Red Cell Distribution Width 12.5 % (11.6-14.8); White Blood Cell Count 15.2 X10^3/uL (4.5-11.0)
--- NOTE | 2018-08-07 08:21 | DI.RAD.S_ITS ---
PROCEDURE: XR ACUTE ABDOMEN SERIES INDICATIONS: increased WBC TECHNIQUE: One view chest and two views of the abdomen were acquired. COMPARISON: [facility], , XR ACUTE ABDOMEN SERIES, 08/02/2018, 20:09. FINDINGS: Surgical changes and devices: Enteric tube tip is in the region of stomach lumen below the left hemidiaphragm. Surgical clips are seen in left upper quadrant abdomen. Left-sided PICC line tip is in SVC. Post lumbar spine fusion changes are noted with a transpedicular fusion hardware, skin treasure and surgical clips. Intervertebral spacer at L2-3 level is also seen. The Chest: Lungs are clear. Heart size is normal. No pleural effusions. No pneumoperitoneum. Abdomen: Mild fluid distended bowel loops are noted throughout abdomen with a few air-fluid levels with air seen distending sigmoid colon and rectum. Overall extent of bowel loop distention has improved since previous study. No suspicious calcifications. Visualized solid organ contours appear normal. Bones: No suspicious bony lesions. IMPRESSION: Findings most consistent with postop ileus, improving compared to 08/02/18 study. No gross free air. No acute cardiopulmonary pathology. Dictated by: Saran Moore M.D. on 08/07/2018 at 10:39 Approved by: Saran Moore M.D. on 08/07/2018 at 10:43
[2018-08-07 08:25] LABS: Alanine Aminotransferase 139 IU/L (21-72); Albumin 2.5 g/dL (3.5-5.0); Alkaline Phosphatase 135 U/L (38-126); Aspartate Aminotransferase 107 IU/L (17-59); BUN Creatinine Ratio 33.8 (6-22); Bilirubin Total 1.3 mg/dL (0.2-1.3); Blood Urea Nitrogen 27 mg/dL (9-20); Carbon Dioxide 29 mmol/L (22-32); Chloride 104 mmol/L (98-107); Estimated Glomerular Filt Rate > 60.0 mL/min (>60); Globulin 2.6 g/dL (1.7-4.1); Glucose 129 mg/dL (80-110); HEMOLYSIS < 15 (0-50); Magnesium 1.7 mg/dL (1.6-2.3); Potassium 4.2 mmol/L (3.4-5.1); Sodium 140 mmol/L (137-145); Total Protein 5.1 g/dL (6.3-8.2)
--- NOTE | 2018-08-07 08:25 | PM.PNPO.1 ---
Subjective Date Patient Seen: 08/07/18 Time Patient Seen: 08:25 Interval history: Hospital day 8, postop day 7 following L2-3 L3-4 XLIF, L4-5 L5-S1 TLIF with hemilaminectomy and L2 through S1 posterior screw fixation by Dr. Gallo. Patient has been orthopedic least stable. He did develop postoperative ileus. He is being followed by hospitalist and surgeon. NG tube in place and has been clamped with the decreased residual. Also was noted to have UTI with indwelling Andres. Started on level Floxin yesterday. 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 Has been up and ambulating in the halls with therapy. Exam Vital Signs (past 8 hours): - 08/07/18 07:30 08/07/18 07:40 08/07/18 08:00 Temperature 98 F Pulse Rate 84 Respiratory Rate 16 Blood Pressure 136/61 Pulse Oximetry 91 95 97 Fraction of Inspired Oxygen 24 Oxygen Delivery Method Nasal Cannula Oxygen Flow Rate 1 Narrative Exam Narrative: Alert, responsive in no acute distress lying in bed. Back. Dressing to lumbar area is dry without drainage or inflammation. Legs. No calf pain or swelling. Pulses symmetrical. Objective Labs Result Diagrams: 08/07/18 07:45 08/06/18 06:40 Labs: Laboratory Results - last 24 hr 08/06/18 08/07/18 11:40 07:45 WBC 15.2 H RBC 2.88 L Hgb 8.5 L Hct 26.2 L MCV 90.9 MCH 29.4 MCHC 32.4 RDW 12.5 Plt Count 268 Neut % (Auto) 68.3 Lymph % (Auto) 7.8 L [place] % (Auto) 16.0 H Eos % (Auto) 7.6 H Baso % (Auto) 0.3 Neut # (Auto) 96133 H Lymph # (Auto) 1200 [place] # (Auto) 2400 H Eos # (Auto) 1200 H Baso # (Auto) 0 Urine Color Yellow Urine Appearance Cloudy Urine pH 6.5 Ur Specific [place] 1.015 Urine Protein Negative Urine Glucose (UA) Negative Urine Ketones Negative Urine Occult Blood Trace-lysed Urine Nitrate Positive Urine Bilirubin Negative Urine Urobilinogen 2.0 H Ur Leukocyte Esterase 1+ H Urine RBC 0-1/hpf Urine WBC 10-30/hpf H Ur Squamous Epith Cells 0-1 /hpf Amorphous Sediment 1+ Urine Bacteria Many (>30) H Ur Culture Indicated? Specimen cultured Assessment & Plan Post-op Postoperative Procedures Operation Date: 07/31/18 07:45 <No data on this case meets the specified criteria> Operation Date: 07/31/18 07:45 Actual Procedures Side Surgeon p L2-3,L3-4 TLIF - L4-5,L5-S1 HWR & exploration of fusion, L2-S1 PSF w/Instru Alyse Gallo MD Plan: Patient is orthopedically stable. Ambulate as tolerated. Continue follow by hospitalist and surgeon for medical issues and GI. Discharge pending clearance by hospitalist and surgeon. Quality VTE Deep Vein Thrombosis/Pulmonary Embolism Present on Admission: No
--- NOTE | 2018-08-07 08:29 | P.PN_ITS ---
Subjective Date Patient Seen: 08/07/18 Time Patient Seen: 08:25 Interval history: Hospital day 8, postop day 7 following L2-3 L3-4 XLIF, L4-5 L5 -S1 TLIF with hemilaminectomy and L2 through S1 posterior screw fixation by Dr. Gallo. Patient has been orthopedic least stable. He did develop postoperative ileus. He is being followed by hospitalist and surgeon. NG tube in place and has been clamped with the decreased residual. Also was noted to have UTI with indwelling Andres. Started on level Floxin yesterday. Has been using morphine SET UP / OPERATOR. Has been up and ambulating in the halls with therapy. Exam Vital Signs (past 8 hours): - 08/07/18 07:30 08/07/18 07:40 08/07/18 08:00 Temperature 98 F Pulse Rate 84 Respiratory Rate 16 Blood Pressure 136/61 Pulse Oximetry 91 95 97 Fraction of Inspired Oxygen 24 Oxygen Delivery Method Nasal Cannula Oxygen Flow Rate 1 Narrative Exam Narrative: Alert, responsive in no acute distress lying in bed. Back. Dressing to lumbar area is dry without drainage or inflammation. Legs. No calf pain or swelling. Pulses symmetrical. Objective Labs Result Diagrams: 08/07/18 07:45 08/06/18 06:40 Labs: Laboratory Results - last 24 hr 08/06/18 08/07/18 11:40 07:45 WBC 15.2 H RBC 2.88 L Hgb 8.5 L Hct 26.2 L MCV 90.9 MCH 29.4 MCHC 32.4 RDW 12.5 Plt Count 268 Neut % (Auto) 68.3 Lymph % (Auto) 7.8 L [place] % (Auto) 16.0 H Eos % (Auto) 7.6 H Baso % (Auto) 0.3 Neut # (Auto) 42813 H Lymph # (Auto) 1200 [place] # (Auto) 2400 H Eos # (Auto) 1200 H Baso # (Auto) 0 Urine Color Yellow Urine Appearance Cloudy Urine pH 6.5 Ur Specific [place] 1.015 Urine Protein Negative Urine Glucose (UA) Negative Urine Ketones Negative Urine Occult Blood Trace-lysed Urine Nitrate Positive Urine Bilirubin Negative Urine Urobilinogen 2.0 H Ur Leukocyte Esterase 1+ H Urine RBC 0-1/hpf Urine WBC 10-30/hpf H Ur Squamous Epith Cells 0-1 /hpf Amorphous Sediment 1+ Urine Bacteria Many (>30) H Ur Culture Indicated? Specimen cultured Assessment & Plan Post-op Postoperative Procedures Operation Date: 07/31/18 07:45 <No data on this case meets the specified criteria> Operation Date: 07/31/18 07:45 Actual Procedures Side Surgeon p L2-3,L3-4 TLIF - L4-5,L5-S1 HWR & exploration of fusion, L2-S1 PSF w/Instru Alyse Gallo MD Plan: Patient is orthopedically stable. Ambulate as tolerated. Continue follow by hospitalist and surgeon for medical issues and GI. Discharge pending clearance by hospitalist and surgeon. Quality VTE Deep Vein Thrombosis/Pulmonary Embolism Present on Admission: No
--- NOTE | 2018-08-07 08:51 | PC.NURSE ---
Day Shift pt appears more confused today than yesterday. thought he was outside of the [place], did not say where, and was wondering why he couldn't have his family come to get him and take [place] back to the [place] and to his house in [place]. Talked with his , she states pt has a history of having infections in the hospital of unknown location which causes confusion for him. Once infection has been treated, she says his mentation improves. Checked residual of NGT that is clamped, was only 25 ml. Pt having hiccups. c/o pain in low back and hips. went downstairs via w/c for abd xray. returned and wanted to sit in chair. will continue to monitor.
--- NOTE | 2018-08-07 10:53 | CM.DPC ---
DCP Cont: Per Ortho PA, pt still ambulating well from Ortho stand point and could d/c home when medically stable. Per Hospitalist , pt still medically complex and remains on TPN, NG tube, white count increased, and still on Oxygen but hoping to begin weaning pt off oxygen and possible NG. Not stable for d/c yet today and likely need for another few days before stable for d/c. Per PT/OT, still recommending safe d/c home with spouse assist when medically stable. Plan: SW to continue to follow closely to determine if pt continues to progress towards safe d/c home with spouse assist when medically stable. SW to follow for any further identified discharge planning needs. MAMTA Navarro
--- NOTE | 2018-08-07 11:16 | PT.IPTN ---
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, lumbar region without neurogenic claudication (07/31/18) Abdominal distension (gaseous) (07/31/18) Personal history of other medical treatment (07/31/18) Arthrodesis status (07/31/18) Surgery Performed Operation Date: 07/31/18 07:45 <No data on this case meets the specified criteria> Operation Date: 07/31/18 07:45 Actual Procedures p L2-3,L3-4 TLIF - L4-5,L5-S1 HWR & exploration of fusion, L2-S1 PSF w/Instru - Alyse Gallo MD Physical Therapy Treatment Note M2 PT-IP Current Condition Start: 07/31/18 15:46 Freq: NEEDED Status: Active Protocol: Document 08/01/18 13:20 AB (Rec: 08/01/18 15:56 AB [id number]) Physical Therapy Current Condition Current Condition Evaluation Date 08/01/18 Treatment Diagnosis s/p L2-4 TLIF, difficulty in walking Onset Date 07/31/18 Precautions Lumbar Precautions Log Roll No Twisting Limit Bending Lifting Restriction of 10 lbs Gait Belt above Incisional Area M3 PT-IP Subjective Start: 07/31/18 15:46 Freq: NEEDED Status: Active Protocol: Document 08/07/18 11:16 GGD (Rec: 08/07/18 11:16 GGD [id number]) Subjective Physical Therapy Visit Type Type Patient Refusal Notes Pt sleepy, unable to eyes open for safe mobility. Will see in PM. Recommendations To Nursing Amount of Assist Needed 1 Person Assist Discharge Recommendations PT Discharge Recommendations Home with Assistance Equipment Needed for Home Before Pt's is getting a FWW Discharge
[2018-08-07] MEDS: PANTOPRAZOLE 40 MG VIAL IV (11:51)
[2018-08-07] MEDS: VENLAFAXINE 37.5 MG TABLET PO ×2 (11:52→20:40)
[2018-08-07] MEDS: BACLOFEN 10 MG TABLET PO (11:52)
[2018-08-07 12:00] VITALS: BP 143/62; PULSE 76; RESP 16; TEMP 36.8; O2SAT 95
--- NOTE | 2018-08-07 13:30 | OT.IP.TRT ---
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, lumbar region without neurogenic claudication (07/31/18) Abdominal distension (gaseous) (07/31/18) Personal history of other medical treatment (07/31/18) Arthrodesis status (07/31/18) Surgery Performed Operation Date: 07/31/18 07:45 <No data on this case meets the specified criteria> Operation Date: 07/31/18 07:45 Actual Procedures p L2-3,L3-4 TLIF - L4-5,L5-S1 HWR & exploration of fusion, L2-S1 PSF w/Instru - Alyse Gallo MD Occupational Therapy Treatment Note M2 OT-IP Current Condition Start: 08/01/18 14:24 Freq: Status: Active Protocol: Document 08/01/18 14:25 CCC (Rec: 08/01/18 15:09 [email or web address] [email or web address]) Occupational Therapy Current Condition Current Condition Evaluation Date 08/01/18 Treatment Diagnosis Lumbar stenosis Diagnosis Onset Date 07/31/17 Post Operative Precautions Lumbar Precautions Log Roll No Twisting Limit Bending Lifting Restriction of 10 lbs Gait Belt above Incisional Area Weight Bearing Status Weight Bearing Status Weight Bear as Tolerated M3 OT- IP Subjective and Pain Start: 08/01/18 14:24 Freq: Status: Active Protocol: Document 08/07/18 13:25 CCC (Rec: 08/07/18 13:30 [facility] [email or web address]) OT- Subjective Occupational Therapy Visit Type Type Patient Refusal Notes Spoke to pt and regarding OT. Pt initially agreed to shower but now wanting to wait again til tomorrow. Pt has good understanding for all OT needs. Therefore to attempt again tomorrow.
[2018-08-07] MEDS: levoFLOXacin 500 MG/100 ML PIGGYBACK 100 MG IV (14:01)
--- NOTE | 2018-08-07 15:34 | PT.IPTN ---
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, lumbar region without neurogenic claudication (07/31/18) Abdominal distension (gaseous) (07/31/18) Personal history of other medical treatment (07/31/18) Arthrodesis status (07/31/18) Surgery Performed Operation Date: 07/31/18 07:45 <No data on this case meets the specified criteria> Operation Date: 07/31/18 07:45 Actual Procedures p L2-3,L3-4 TLIF - L4-5,L5-S1 HWR & exploration of fusion, L2-S1 PSF w/Instru - Alyse Gallo MD Physical Therapy Treatment Note M2 PT-IP Current Condition Start: 07/31/18 15:46 Freq: NEEDED Status: Active Protocol: Document 08/01/18 13:20 AB (Rec: 08/01/18 15:56 AB [id number]) Physical Therapy Current Condition Current Condition Evaluation Date 08/01/18 Treatment Diagnosis s/p L2-4 TLIF, difficulty in walking Onset Date 07/31/18 Precautions Lumbar Precautions Log Roll No Twisting Limit Bending Lifting Restriction of 10 lbs Gait Belt above Incisional Area M3 PT-IP Subjective Start: 07/31/18 15:46 Freq: NEEDED Status: Active Protocol: Document 08/07/18 15:31 GGD (Rec: 08/07/18 15:34 GGD [email or web address]) Subjective Physical Therapy Visit Type Type Patient Refusal Notes Pt states that he is tired, but did walk early and did 4 laps. Will see in AM. Focus Recommendations To Nursing Amount of Assist Needed 1 Person Assist Discharge Recommendations PT Discharge Recommendations Home with Assistance Equipment Needed for Home Before Pt's is getting a FWW Discharge
[2018-08-07 17:20] VITALS: BP 143/63; PULSE 87; RESP 16; TEMP 36.6; O2SAT 96
--- NOTE | 2018-08-07 18:30 | PM.PN.1 ---
Subjective Date Patient Seen: 08/07/18 Time Patient Seen: 18:30 Interval history: Patient complains of a great deal of back pain. His abdomen isn't hurting very much if at all. NG tube has been clamped today. His throat is very dry any would like to have the tube removed. No cough. No chest pain. Passing a small amount of flatus. No bowel movement. Exam Vital Signs (past 8 hours): - 08/07/18 12:00 08/07/18 17:20 Temperature 98.2 F 97.9 F Pulse Rate 76 87 Respiratory Rate 16 16 Blood Pressure 143/62 H 143/63 H Pulse Oximetry 95 96 Fraction of Inspired Oxygen 24 Oxygen Delivery Method Nasal Cannula Oxygen Flow Rate 1 Narrative Exam Narrative: Operative no apparent distress. His eyes are nonicteric. Neck is supple. Lungs are clear to auscultation. He has an excellent respiratory effort. Heart regular rate and rhythm without murmur gallop. Abdomen is flat soft. Reducible hernias. He is not really tender. Andres is intact. Draining blood tinged (slight) urine. Has bruising along his right flank into his right Lee lateral thigh. Dry intact new dressing on his back which was not removed. Objective Labs Result Diagrams: 08/07/18 07:45 08/07/18 07:45 Labs: Laboratory Results - last 24 hr 08/07/18 08/07/18 08/07/18 07:45 07:45 07:45 WBC 15.2 H RBC 2.88 L Hgb 8.5 L Hct 26.2 L MCV 90.9 MCH 29.4 MCHC 32.4 RDW 12.5 Plt Count 268 Neut % (Auto) 68.3 Lymph % (Auto) 7.8 L [place] % (Auto) 16.0 H Eos % (Auto) 7.6 H Baso % (Auto) 0.3 Neut # (Auto) 38472 H Lymph # (Auto) 1200 [place] # (Auto) 2400 H Eos # (Auto) 1200 H Baso # (Auto) 0 Sodium 140 Potassium 4.2 Chloride 104 Carbon Dioxide 29 BUN 27 H Creatinine 0.80 Estimated GFR > 60.0 BUN/Creatinine Ratio 33.8 H Glucose 129 H Calcium 8.0 L Magnesium 1.7 Total Bilirubin 1.3 AST 107 H ALT 139 H Alkaline Phosphatase 135 H Total Protein 5.1 L Albumin 2.5 L Globulin 2.6 Albumin/Globulin Ratio 1.0 Procalcitonin 0.10 Assessment & Plan Plan: Assessment/Plan Narrative: Patient's white blood cell count is up to 15. Hematocrit is 26. This is acute blood loss anemia. X-rays were reviewed. He still has some air-fluid levels. There is improvement in the diameter of his small bowel. Much of the gas in his colon except in the rectum as disappeared. Do not know if the dura leak persists. He is not confused this evening. It is reported that he has been at other times. His liver function tests are twice normal except for his bilirubin which is within normal limits. This may be related to illness but it may also be related to cholestasis a and his TPN. We will continue 1 more day TPN at present level along with lipids. Patient's albumin is quite low. He is nutritionally depleted. Ordered a small-bowel follow-through for tomorrow with Gastrografin in order to see if we can open up his intestine versus diagnosis some other problem. Quality VTE Deep Vein Thrombosis/Pulmonary Embolism Present on Admission: No
[2018-08-07] MEDS: FAT EMULSIONS 50 GM/250 ML EMULSION IV (18:31)
[2018-08-07] MEDS: AA 5 %/CALCIUM/LYTES/DEXT 20 % 2,000 ML with MULTIVITAMIN 10 ML, TRACE ELEMENTS 1 ML, I... 83.796 ML IV (18:31)
--- NOTE | 2018-08-07 18:35 | P.PN_ITS ---
Subjective Date Patient Seen: 08/07/18 Time Patient Seen: 18:30 Interval history: Patient complains of a great deal of back pain. His abdomen isn't hurting very much if at all. NG tube has been clamped today. His throat is very dry any would like to have the tube removed. No cough. No chest pain. Passing a small amount of flatus. No bowel movement. Exam Vital Signs (past 8 hours): - 08/07/18 12:00 08/07/18 17:20 Temperature 98.2 F 97.9 F Pulse Rate 76 87 Respiratory Rate 16 16 Blood Pressure 143/62 H 143/63 H Pulse Oximetry 95 96 Fraction of Inspired Oxygen 24 Oxygen Delivery Method Nasal Cannula Oxygen Flow Rate 1 Narrative Exam Narrative: Operative no apparent distress. His eyes are nonicteric. Neck is supple. Lungs are clear to auscultation. He has an excellent respiratory effort. Heart regular rate and rhythm without murmur gallop. Abdomen is flat soft. Reducible hernias. He is not really tender. Andres is intact. Draining blood tinged (slight) urine. Has bruising along his right flank into his right Lee lateral thigh. Dry intact new dressing on his back which was not removed. Objective Labs Result Diagrams: 08/07/18 07:45 08/07/18 07:45 Labs: Laboratory Results - last 24 hr 08/07/18 08/07/18 08/07/18 07:45 07:45 07:45 WBC 15.2 H RBC 2.88 L Hgb 8.5 L Hct 26.2 L MCV 90.9 MCH 29.4 MCHC 32.4 RDW 12.5 Plt Count 268 Neut % (Auto) 68.3 Lymph % (Auto) 7.8 L [place] % (Auto) 16.0 H Eos % (Auto) 7.6 H Baso % (Auto) 0.3 Neut # (Auto) 50881 H Lymph # (Auto) 1200 [place] # (Auto) 2400 H Eos # (Auto) 1200 H Baso # (Auto) 0 Sodium 140 Potassium 4.2 Chloride 104 Carbon Dioxide 29 BUN 27 H Creatinine 0.80 Estimated GFR > 60.0 BUN/Creatinine Ratio 33.8 H Glucose 129 H Calcium 8.0 L Magnesium 1.7 Total Bilirubin 1.3 AST 107 H ALT 139 H Alkaline Phosphatase 135 H Total Protein 5.1 L Albumin 2.5 L Globulin 2.6 Albumin/Globulin Ratio 1.0 Procalcitonin 0.10 Assessment & Plan Plan: Assessment/Plan Narrative: Patient's white blood cell count is up to 15. Hematocrit is 26. This is acute blood loss anemia. X-rays were reviewed. He still has some air-fluid levels. There is improvement in the diameter of his small bowel. Much of the gas in his colon except in the rectum as disappeared. Do not know if the dura leak persists. He is not confused this evening. It is reported that he has been at other times. His liver function tests are twice normal except for his bilirubin which is within normal limits. This may be related to illness but it may also be related to cholestasis a and his TPN. We will continue 1 more day TPN at present level along with lipids. Patient's albumin is quite low. He is nutritionally depleted. Ordered a small-bowel follow-through for tomorrow with Gastrografin in order to see if we can open up his intestine versus diagnosis some other problem. Quality VTE Deep Vein Thrombosis/Pulmonary Embolism Present on Admission: No
--- NOTE | 2018-08-07 23:20 | PC.NURSE ---
Patient is A&O x2, was confused on date, day of week and time. Patient was very irritated with this nurse at beginning of shift as he felt I woke him up and asked too many questions. Patient was upset and called , asked this nurse to leave his room and allow him to speak with his . Patient reported to his that they are trying to rip out my catheter, asking me who the president is and what day it is. Stating shouldn't they know those answers, why are they asking me? Patient refused to allow me to look at his drg. on back as he was not going to roll over. Drg. was not visualized on jerri shift by this nurse. Patient's attittude w/ staff improved through evening and he was kinder to staff members. Patient is resting in bed now. Verbal order was given that Andres Cath was to be changed today (this was reported by day nurse) However no orders were in computer and no notation was made in any of the 3 covering providers. Andres was not replaced on jerri shift, per no orders to do so. Patient and nurse did discuss changing cath, and states that if changed patient needs to have a 20 [place] instead of a 16 [place]uan as he leakes around the 16 [place]uan. call light w/ in reach, bed in low pos. alarm active.
[2018-08-08 01:24] VITALS: BP 139/61; PULSE 87; RESP 18; TEMP 37.3; O2SAT 93
[2018-08-08 04:09] VITALS: BP 143/77; PULSE 86; RESP 18; TEMP 36.6; O2SAT 94
[2018-08-08] MEDS: MORPHINE PCA 30 MG/30 ML PCA.VIAL IV ×3 (06:06→22:52)
[2018-08-08 06:09] LABS: Add Manual Diff / Slide Review NO; Alanine Aminotransferase 140 IU/L (21-72); Albumin 2.8 g/dL (3.5-5.0); Alkaline Phosphatase 150 U/L (38-126); Aspartate Aminotransferase 85 IU/L (17-59); BUN Creatinine Ratio 32.9 (6-22); Basophils Absolute Auto 100 /uL (0-100); Basophils Percent Auto 0.4 % (0-2); Bilirubin Total 0.9 mg/dL (0.2-1.3); Blood Urea Nitrogen 23 mg/dL (9-20); Carbon Dioxide 27 mmol/L (22-32); Chloride 101 mmol/L (98-107); Eosinophils Absolute Auto 1300 /uL (0-450); Eosinophils Percent Auto 7.6 % (2-4); Estimated Glomerular Filt Rate > 60.0 mL/min (>60); Globulin 2.9 g/dL (1.7-4.1); Glucose 134 mg/dL (80-110); HEMOLYSIS < 15 (0-50); Hemoglobin 8.3 g/dL (13.5-17.5); Lymphocytes Absolute Auto 1600 /uL (1100-4500); Lymphocytes Percent Auto 9.4 % (25-40); Mean Corpuscular HGB Conc 33.1 % (30-36); Mean Corpuscular Hemoglobin 29.5 PG (26-34); Mean Corpuscular Volume 89.1 fL (80-100); Monocytes Absolute Auto 2700 /uL (0-900); Monocytes Percent Auto 16.4 % (3-14); Neutrophils Absolute Auto 11000 /uL (1500-7000); Neutrophils Percent Auto 66.2 % (50-75); Platelet Count 298 X10^3/uL (150-400); Potassium 4.2 mmol/L (3.4-5.1); Red Blood Cell Count 2.81 X10^6/uL (4.5-5.9); Red Cell Distribution Width 12.7 % (11.6-14.8); Sodium 135 mmol/L (137-145); Total Protein 5.7 g/dL (6.3-8.2); White Blood Cell Count 16.6 X10^3/uL (4.5-11.0)
[2018-08-08] MEDS: INSULIN REGULAR 100 UNIT/ML 3 ML VIAL SUBCUT ×2 (06:12→19:25)
[2018-08-08 06:25] LABS: Procalcitonin 0.07 ng/mL (<0.5)
--- NOTE | 2018-08-08 06:33 | PC.NURSE ---
Pt is A and O x 4 with significant episodes of confusion brittany when he wakes up from sleeping. He used 11.3 mg MS this noc shift. He has been sleeping most of shift. L UE/hand +2 edema. LS course in bases. S1, S2. Voiding qs layo clear per Andres. BTs hypo. 0000 blood glucose = 141, 0600 = 149/1 unit insulin. Dressing on lower back is C/D/I.
--- NOTE | 2018-08-08 06:38 | P.PN_ITS ---
Subjective Date Patient Seen: 08/08/18 Interval history: Edgardo Cotter is an 83-year-old male with a past medical history significant for CAD, hypertension, hyperlipidemia, anxiety, depression, multiple abdominal surgeries including, previous lysis of adhesions, who is now status post extensive lumbar spinal surgery in which we were consulted for postop ileus versus SBO and medical management of multiple comorbidities. Overnight: The patient was stable and there were no acute events. The patient is resting in bed comfortably. He reports he is relaxed. He continues to ache all over but does complain of bilateral earache and headache. He is intermittently confused with difficulty remembering what we talked about several minutes prior to his 's arrival. His abdomen is soft and non- tender. He continues to endorse throat and esophageal pain related to the NG tube with intermittent hiccups and laryngospasm. He is still producing a small amount of flatus daily. He denies shortness of breath, chest pain, abdominal pain, nausea, vomiting, fever, chills. He is voiding via bermeo catheter without difficulty. He has had a small BM since surgery but has not had another since 08/03. He is up ambulating with assistance. Exam Vital Signs (past 8 hours): - 08/08/18 01:24 08/08/18 04:09 Temperature 99.2 F 97.9 F Pulse Rate 87 86 Respiratory Rate 18 18 Blood Pressure 139/61 143/77 H Pulse Oximetry 93 94 Fraction of Inspired Oxygen 24 Oxygen Delivery Method Room Air Oxygen Flow Rate 1 Narrative Exam Narrative: General: Middle-aged gentleman lying in bedside chair, appears comfortable, well-developed, well-nourished, appropriately interactive. Mild confusion. HEENT: Normocephalic, atraumatic. External ears without defect. Pupils equal, round, and reactive to light and accommodation. Anicteric sclerae, moist conjunctivae, and no lid lag. NG tube in place with very minimal drainage. Neck: Supple with full range of motion. No lymphadenopathy or thyromegaly. Cardiovascular: Regular rate and rhythm without murmurs, rubs, or gallops appreciated Pulmonary: Clear to auscultation bilaterally without crackles, wheezes, or rhonchi. Normal respiratory effort with no use of accessory muscles. Abdomen: Softer than yesterday with more apparent bowel sounds. No tenderness to palpation. Mild distension/protuberant. No rebound or guarding. No hepatosplenomegaly or masses appreciated. Small umbilical hernia reducible. Extremities: No clubbing, cyanosis, or edema. Skin: Normal temperature, turgor, and texture; no rash, ulcers, or subcutaneous nodules appreciated. Neurological: Cranial nerves grossly intact. Psychiatric: Depressed mood and flat affect. Mild confusion. Objective Labs Result Diagrams: 08/08/18 05:36 08/08/18 05:36 Labs: Laboratory Results - last 24 hr 08/07/18 08/07/18 08/07/18 07:45 07:45 07:45 WBC 15.2 H RBC 2.88 L Hgb 8.5 L Hct 26.2 L MCV 90.9 MCH 29.4 MCHC 32.4 RDW 12.5 Plt Count 268 Neut % (Auto) 68.3 Lymph % (Auto) 7.8 L [place] % (Auto) 16.0 H Eos % (Auto) 7.6 H Baso % (Auto) 0.3 Neut # (Auto) 80673 H Lymph # (Auto) 1200 [place] # (Auto) 2400 H Eos # (Auto) 1200 H Baso # (Auto) 0 Sodium 140 Potassium 4.2 Chloride 104 Carbon Dioxide 29 BUN 27 H Creatinine 0.80 Estimated GFR > 60.0 BUN/Creatinine Ratio 33.8 H Glucose 129 H Calcium 8.0 L Magnesium 1.7 Total Bilirubin 1.3 AST 107 H ALT 139 H Alkaline Phosphatase 135 H Total Protein 5.1 L Albumin 2.5 L Globulin 2.6 Albumin/Globulin Ratio 1.0 Procalcitonin 0.10 08/08/18 08/08/18 08/08/18 05:36 05:36 05:36 WBC 16.6 H RBC 2.81 L Hgb 8.3 L Hct 25.0 L MCV 89.1 MCH 29.5 MCHC 33.1 RDW 12.7 Plt Count 298 Neut % (Auto) 66.2 Lymph % (Auto) 9.4 L [place] % (Auto) 16.4 H Eos % (Auto) 7.6 H Baso % (Auto) 0.4 Neut # (Auto) 42131 H Lymph # (Auto) 1600 [place] # (Auto) 2700 H Eos # (Auto) 1300 H Baso # (Auto) 100 Sodium 135 L Potassium 4.2 Chloride 101 Carbon Dioxide 27 BUN 23 H Creatinine 0.70 Estimated GFR > 60.0 BUN/Creatinine Ratio 32.9 H Glucose 134 H Calcium 8.0 L Magnesium Total Bilirubin 0.9 AST 85 H ALT 140 H Alkaline Phosphatase 150 H Total Protein 5.7 L Albumin 2.8 L Globulin 2.9 Albumin/Globulin Ratio 1.0 Procalcitonin 0.07 Assessment & Plan Plan: Assessment/Plan Narrative: Edgardo Cotter is an 83-year-old male with a past medical history significant for CAD, hypertension, hyperlipidemia, anxiety, depression, multiple abdominal surgeries including, previous lysis of adhesions, who is now status post extensive lumbar spinal surgery in which we were consulted for postop ileus versus SBO and medical management of multiple comorbidities. 1. Acute post-operative Ileus, not present on admission. Improving. -Chest/Abdominal series demonstrated mild to moderate dilation of fluid- filled small bowel loops consistent with partial small bowel obstruction. Moderate stool is present suggestive constipation. Repeat abdominal series demonstrated postop ileus that is improving compared to 08/02/18. -Patient has had a small BM 08/03 and is passing flatus. Given a dose of relistor for chronic opiate induced constipation. -NG tube continues to have minimal output and has been clamped per surgery. General surgery plans for small-bowel follow-through today. May consider removing NG tube but await surgeries approval. -Octreotide was given to decrease GI secretions and has been discontinued as secretions decreased substantially. -General surgery is following and started TPN on 08/04. The patient is still slightly prerenal and IVF are with NS at 75mL/hr. Does not have a free water deficit. 2. Acute E coli urinary tract infection, secondary to chronic indwelling catheter, not present on admission. Active. -Leukocytosis has been trending up since 08/05. -General surgery ordered chest x-ray and urinalysis. Urine culture preliminarily growing gram-negative bacilli. -Initial leukocytosis was likely due to steroid addition and WBC trended down. Since 08/05 WBC has trended back up which is thought to be related to UTI. Despite addition of levofloxacin for which E coli UTI is sensitive to, however, WBC still trending up which may be related to other underlying infectious process, however, PMN's trending down, procalcitonin negative, and patient is afebrile. Consider dural leak? -Urine culture grew pansensitive E coli. Continue levofloxacin 750 mg daily. Continue to monitor for worsening signs of infection. -Change bermeo today. 3. Acute laryngospasm, not present on admission. Ongoing. -Reactive laryngospasm and hiccups due to NG tube causing diaphragmatic irritation. -Ordered baclofen 10 mg every 6 hours as needed for hiccups and laryngospasm. -Oral home medications have been switched to equivalent IV, liquid form, or held (see below). Plan to switch back to oral after NG tube is discontinued and tolerating PO intake. 4. Acute extensive lumbar spinal surgery, not present on admission. Active -Defer to orthopedic notes for postoperative observation. Discussed with Dr. Armendariz today. 5. Acute leukocytosis, present on admission. Improving. -Initial leukocytosis was likely due to steroid addition and WBC trended down. Since 08/05 WBC has trended back up which is thought to be related to UTI secondary to chronic indwelling Bermeo catheter. Despite addition of levofloxacin which E coli UTI sensitive to, however WBC still trending up which may be related to other underlying infectious process, however, PMN's trending down, procalcitonin negative, and patient is afebrile. Consider dural leak? 6. Depression, chronic, present on admission. Stable. -Continue with oral venlafaxine, crushed, to avoid withdrawal - with the understanding of incomplete absorption due to the NGT. 7. Anxiety, chronic, present on admission. Stable. -He has a longstanding anxiety with benzodiazapine dependency. Will continue lorazepam IV as needed. 8. CAD, chronic, present on admission. Stable. -Patient NPO and held PO meds losartan, atorvastatin, HCTZ. -Ordered IV Labetalol and hydralazine as needed while NPO. 9. Hypertension, chronic, present on admission. Stable. -Patient NPO and held PO meds HCTZ and losartan. -Ordered labetalol and hydralazine as needed IV equivalents. 10. Hyperlipedemia, chronic, present on admission. Stable. -Held PO meds atorvastatin. 11. GERD, chronic, present on admission. Stable. -Continue home PPI with Protonix IV. Thank you for allowing us to participate in this patients care. We will continue to follow along with you. Quality VTE Deep Vein Thrombosis/Pulmonary Embolism Present on Admission: No
[2018-08-08 07:30] VITALS: BP 130/65; PULSE 88; RESP 18; TEMP 37; O2SAT 95
--- NOTE | 2018-08-08 08:00 | DI.RAD.S_ITS ---
PROCEDURE: FL SMALL BOWEL FOLLOW THROUGH INDICATIONS: ileus vs obstruction. diagnostic/therapeutic COMPARISON: None. FINDINGS: KUB: Preprocedural system development engineer film demonstrates a normal bowel gas pattern. No suspicious abdominal calcifications. Visualized solid organ contours appear normal. No suspicious bony abnormalities. Lumbar spinal fixation hardware and skin treasure. Small bowel: There is normal transit time of barium through the small bowel. Small bowel loops are of normal caliber throughout. Mucosal folds are smooth and of normal thickness. No strictures, intraluminal masses, or extrinsic mass effects are noted. Moderate stool. IMPRESSION: Normal contrast transit time. No definite pathologically dilated bowel or transition point. Moderate stool. Dictated by: Barron Pak M.D. on 08/08/2018 at 17:12 Approved by: Barron Pak M.D. on 08/08/2018 at 17:16
[2018-08-08] MEDS: LORazepam 2 MG/ML SYRINGE 0.5 MG IV ×3 (08:15→19:25)
[2018-08-08] MEDS: SODIUM CHLORIDE 0.9% FLUSH 10 ML IV (08:18)
[2018-08-08] MEDS: PANTOPRAZOLE 40 MG VIAL IV (08:30)
--- NOTE | 2018-08-08 08:35 | P.PN_ITS ---
Subjective Date Patient Seen: 08/08/18 Time Patient Seen: 08:34 Interval history: POD 8 s/p L4-5 hardware removal, edilma laminectomy and posterior fusion, L2-3, L3-4 TLIF, L2 through S1 posterior screw fixation by Dr. Gallo. Patient had a dural tear. No complaints of headaches today. Patient has been orthopedically stable. He did develop postoperative ileus. He has been on TPN. He is being followed by hospitalist and general surgery team. Also was noted to have UTI with indwelling Andres, and started on levofloxacin. Has been up and ambulating in the halls with therapy. Exam Vital Signs (past 8 hours): - 08/08/18 01:24 08/08/18 04:09 08/08/18 07:30 Temperature 99.2 F 97.9 F 98.6 F Pulse Rate 87 86 88 Respiratory Rate 18 18 18 Blood Pressure 139/61 143/77 H 130/65 Pulse Oximetry 93 94 95 Fraction of Inspired Oxygen 24 Oxygen Delivery Method Room Air Oxygen Flow Rate 1 Narrative Exam Narrative: Patient lying in bed in NAD. He is alert and oriented X3. Calves are soft, compressible, and nontender bilaterally. Pulses are symmetrical. He is able to actively dorsiflex and plantarflex. Objective Labs Result Diagrams: 08/08/18 05:36 08/08/18 05:36 Labs: Laboratory Results - last 24 hr 08/07/18 08/08/18 08/08/18 07:45 05:36 05:36 WBC 16.6 H RBC 2.81 L Hgb 8.3 L Hct 25.0 L MCV 89.1 MCH 29.5 MCHC 33.1 RDW 12.7 Plt Count 298 Neut % (Auto) 66.2 Lymph % (Auto) 9.4 L [place] % (Auto) 16.4 H Eos % (Auto) 7.6 H Baso % (Auto) 0.4 Neut # (Auto) 14502 H Lymph # (Auto) 1600 [place] # (Auto) 2700 H Eos # (Auto) 1300 H Baso # (Auto) 100 Sodium 135 L Potassium 4.2 Chloride 101 Carbon Dioxide 27 BUN 23 H Creatinine 0.70 Estimated GFR > 60.0 BUN/Creatinine Ratio 32.9 H Glucose 134 H Calcium 8.0 L Total Bilirubin 0.9 AST 85 H ALT 140 H Alkaline Phosphatase 150 H Total Protein 5.7 L Albumin 2.8 L Globulin 2.9 Albumin/Globulin Ratio 1.0 Procalcitonin 0.10 08/08/18 05:36 WBC RBC Hgb Hct MCV MCH MCHC RDW Plt Count Neut % (Auto) Lymph % (Auto) [place] % (Auto) Eos % (Auto) Baso % (Auto) Neut # (Auto) Lymph # (Auto) [place] # (Auto) Eos # (Auto) Baso # (Auto) Sodium Potassium Chloride Carbon Dioxide BUN Creatinine Estimated GFR BUN/Creatinine Ratio Glucose Calcium Total Bilirubin AST ALT Alkaline Phosphatase Total Protein Albumin Globulin Albumin/Globulin Ratio Procalcitonin 0.07 Assessment & Plan Post-op Postoperative Procedures Operation Date: 07/31/18 07:45 <No data on this case meets the specified criteria> Operation Date: 07/31/18 07:45 Actual Procedures Side Surgeon p L2-3,L3-4 TLIF - L4-5,L5-S1 HWR & exploration of fusion, L2-S1 PSF w/Instru Alyse Gallo MD Patient is orthopedically stable. Ambulate as tolerated. Continue follow by hospitalist and surgeon for medical issues and GI. Discharge pending clearance by hospitalist and surgeon. Quality VTE Deep Vein Thrombosis/Pulmonary Embolism Present on Admission: No
--- NOTE | 2018-08-08 09:44 | PC.NURSE ---
Addendum entered by Elena Reyes R.N. 08/08/18 13:37: 1220 Pt taken to DI for SB f/t. This RN assessed Pt after start of testing for comfort, PHLEBOTOMY TECHNICIAN and TPN in use while test is running. Pt reports some discomfort, provided scheduled ativan for anxiety, no concerns. 'DI on phone for pain concerns. Orders rec'd. Medicated in DI. FLuids and TPN remain running during imaging. Original Note: AM shift Pt feels that pain is not well controlled. NG tube is hurting throat, back pain doesn't feel as managed with PHLEBOTOMY TECHNICIAN as he had hoped. Expresses frustration with PRN medication that is not scheduled. Dr Abarca agrees with changing ativan to home regime, scheduled. Will Address with Dr. Dr De Los Santos updated on case, ortho is following this AM as well. Pt updated on POC and will keep updated of medication changes.
--- NOTE | 2018-08-08 11:16 | PT.IPTN ---
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, lumbar region without neurogenic claudication (07/31/18) Abdominal distension (gaseous) (07/31/18) Personal history of other medical treatment (07/31/18) Arthrodesis status (07/31/18) Surgery Performed Operation Date: 07/31/18 07:45 <No data on this case meets the specified criteria> Operation Date: 07/31/18 07:45 Actual Procedures p L2-3,L3-4 TLIF - L4-5,L5-S1 HWR & exploration of fusion, L2-S1 PSF w/Instru - Alyse Gallo MD Physical Therapy Treatment Note M2 PT-IP Current Condition Start: 07/31/18 15:46 Freq: NEEDED Status: Active Protocol: Document 08/01/18 13:20 AB (Rec: 08/01/18 15:56 AB [id number]) Physical Therapy Current Condition Current Condition Evaluation Date 08/01/18 Treatment Diagnosis s/p L2-4 TLIF, difficulty in walking Onset Date 07/31/18 Precautions Lumbar Precautions Log Roll No Twisting Limit Bending Lifting Restriction of 10 lbs Gait Belt above Incisional Area M3 PT-IP Subjective Start: 07/31/18 15:46 Freq: NEEDED Status: Active Protocol: Document 08/08/18 11:15 GGD (Rec: 08/08/18 11:16 GGD [id number]) Subjective Physical Therapy Visit Type Notes Pt getting a bed bath and would like to wait until PM. M4 PT-IP Mobility and Gait Start: 07/31/18 15:46 Focus Recommendations To Nursing Amount of Assist Needed 1 Person Assist Discharge Recommendations PT Discharge Recommendations Home with Assistance Equipment Needed for Home Before Pt's is getting a FWW Discharge
[2018-08-08] MEDS: MORPHINE 2 MG/ML INJ 1 MG IV (14:00)
--- NOTE | 2018-08-08 14:28 | OT.IP.TRT ---
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, lumbar region without neurogenic claudication (07/31/18) Abdominal distension (gaseous) (07/31/18) Personal history of other medical treatment (07/31/18) Arthrodesis status (07/31/18) Surgery Performed Operation Date: 07/31/18 07:45 <No data on this case meets the specified criteria> Operation Date: 07/31/18 07:45 Actual Procedures p L2-3,L3-4 TLIF - L4-5,L5-S1 HWR & exploration of fusion, L2-S1 PSF w/Instru - Alyse Gallo MD Occupational Therapy Treatment Note M2 OT-IP Current Condition Start: 08/01/18 14:24 Freq: Status: Active Protocol: Document 08/01/18 14:25 [facility] (Rec: 08/01/18 15:09 [facility] [id number]) Occupational Therapy Current Condition Current Condition Evaluation Date 08/01/18 Treatment Diagnosis Lumbar stenosis Diagnosis Onset Date 07/31/17 Post Operative Precautions Lumbar Precautions Log Roll No Twisting Limit Bending Lifting Restriction of 10 lbs Gait Belt above Incisional Area Weight Bearing Status Weight Bearing Status Weight Bear as Tolerated M3 OT- IP Subjective and Pain Start: 08/01/18 14:24 Freq: Status: Active Protocol: Document 08/08/18 14:25 [facility] (Rec: 08/08/18 14:28 [facility] [id number]) OT- Subjective Occupational Therapy Visit Type Type Administrative Note Notes Pt per nurse very tired and not appropriate to be see today . Therefore to touch base with pt again tomorrow for OT needs.
--- NOTE | 2018-08-08 15:08 | PT.IPTN ---
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, lumbar region without neurogenic claudication (07/31/18) Abdominal distension (gaseous) (07/31/18) Personal history of other medical treatment (07/31/18) Arthrodesis status (07/31/18) Surgery Performed Operation Date: 07/31/18 07:45 <No data on this case meets the specified criteria> Operation Date: 07/31/18 07:45 Actual Procedures p L2-3,L3-4 TLIF - L4-5,L5-S1 HWR & exploration of fusion, L2-S1 PSF w/Instru - Alyse Gallo MD Physical Therapy Treatment Note M2 PT-IP Current Condition Start: 07/31/18 15:46 Freq: NEEDED Status: Active Protocol: Document 08/01/18 13:20 AB (Rec: 08/01/18 15:56 AB [id number]) Physical Therapy Current Condition Current Condition Evaluation Date 08/01/18 Treatment Diagnosis s/p L2-4 TLIF, difficulty in walking Onset Date 07/31/18 Precautions Lumbar Precautions Log Roll No Twisting Limit Bending Lifting Restriction of 10 lbs Gait Belt above Incisional Area M3 PT-IP Subjective Start: 07/31/18 15:46 Freq: NEEDED Status: Active Protocol: Document 08/08/18 15:08 GGD (Rec: 08/08/18 15:08 GGD [id number]) Subjective Physical Therapy Visit Type Notes Pt doing in xray, will see in AM. Focus Recommendations To Nursing Amount of Assist Needed 1 Person Assist Discharge Recommendations PT Discharge Recommendations Home with Assistance Equipment Needed for Home Before Pt's is getting a FWW Discharge
[2018-08-08] MEDS: levoFLOXacin 500 MG/100 ML PIGGYBACK 100 MG IV (15:36)
[2018-08-08 15:44] VITALS: BP 136/69; PULSE 106; RESP 20; TEMP 37; O2SAT 92
--- NOTE | 2018-08-08 16:40 | P.PN_ITS ---
Exam Vital Signs (past 8 hours): - 08/08/18 15:44 Temperature 98.6 F Pulse Rate 106 H Respiratory Rate 20 Blood Pressure 136/69 Pulse Oximetry 92 Fraction of Inspired Oxygen 24 Oxygen Delivery Method Room Air Oxygen Flow Rate 1 Objective Labs Result Diagrams: 08/08/18 05:36 08/08/18 05:36 Labs: Laboratory Results - last 24 hr 08/08/18 08/08/18 08/08/18 05:36 05:36 05:36 WBC 16.6 H RBC 2.81 L Hgb 8.3 L Hct 25.0 L MCV 89.1 MCH 29.5 MCHC 33.1 RDW 12.7 Plt Count 298 Neut % (Auto) 66.2 Lymph % (Auto) 9.4 L [place] % (Auto) 16.4 H Eos % (Auto) 7.6 H Baso % (Auto) 0.4 Neut # (Auto) 36944 H Lymph # (Auto) 1600 [place] # (Auto) 2700 H Eos # (Auto) 1300 H Baso # (Auto) 100 Sodium 135 L Potassium 4.2 Chloride 101 Carbon Dioxide 27 BUN 23 H Creatinine 0.70 Estimated GFR > 60.0 BUN/Creatinine Ratio 32.9 H Glucose 134 H Calcium 8.0 L Total Bilirubin 0.9 AST 85 H ALT 140 H Alkaline Phosphatase 150 H Total Protein 5.7 L Albumin 2.8 L Globulin 2.9 Albumin/Globulin Ratio 1.0 Procalcitonin 0.07 Assessment & Plan Plan: Assessment/Plan Narrative: Mr. Cotter is s/p lumbar fusion. He has developed ileus and is being treated by general surgery and medicine. His lumbar wound is clean and dry. He is neuro intact on exam. He has complaints of back pain when he mobilizes, which is consistent with postop pain. His dressing/wound is clean and dry. No erythema, no drainage. I will continue monitor his progress and perform PT daily for mobility training. Continue medical management for ileus. Quality VTE Deep Vein Thrombosis/Pulmonary Embolism Present on Admission: No
[2018-08-08] MEDS: FAT EMULSIONS 50 GM/250 ML EMULSION IV (18:35)
[2018-08-08] MEDS: AA 5 %/CALCIUM/LYTES/DEXT 20 % 1,500 ML with MULTIVITAMIN 10 ML, TRACE ELEMENTS 1 ML, I... 62.961 ML IV (18:35)
[2018-08-08 20:34] VITALS: BP 102/67; PULSE 120; RESP 22; TEMP 36.9; O2SAT 90
[2018-08-08 22:56] VITALS: O2SAT 96
[2018-08-09] VITALS: BP 106/56; PULSE 98; RESP 18; TEMP 36.7; O2SAT 93
[2018-08-09] MEDS: LORazepam 2 MG/ML SYRINGE 0.5 MG IV ×4 (00:45→12:30)
[2018-08-09 05:30] VITALS: BP 121/56; PULSE 86; RESP 18; TEMP 36.9; O2SAT 95
[2018-08-09] MEDS: INSULIN REGULAR 100 UNIT/ML 3 ML VIAL SUBCUT ×3 (06:22→19:12)
[2018-08-09] MEDS: MORPHINE PCA 30 MG/30 ML PCA.VIAL IV ×3 (06:27→23:06)
--- NOTE | 2018-08-09 06:36 | PC.NURSE ---
Pt is A and O x4, generally lucid, confused at [facility] after having been asleep. Placed a new 20f Andres catheter, without issue, got urine with sediment back right away, but draining slowly, only 200 mLs this shift, better color, bright yellow. Bladder scanned read out of 125 mLs. Pt feels a 18f would be a better fit. He states he has scar tissue where the prostate would be. [facility] Coordinator recommends leaving this Andres in and monitoring. Balloon is 10mLs. Pt denies pain, used 12 mg PDA MS. Pt able to sleep and he would like to start being able to drink soon.
--- NOTE | 2018-08-09 06:39 | P.PN_ITS ---
Subjective Date Patient Seen: 08/09/18 Interval history: Edgardo Cotter is an 83-year-old male with a past medical history significant for CAD, hypertension, hyperlipidemia, anxiety, depression, multiple abdominal surgeries including, previous lysis of adhesions, who is now status post extensive lumbar spinal surgery in which we were consulted for postop ileus versus SBO and medical management of multiple comorbidities. Overnight: Patient had a small-bowel follow-through demonstrating moderate stool without obstruction. The patient had several bowel movements status post study. NG tube was removed. The patient remained stable overnight and there were no acute events. The patient is resting in bed comfortably. He is intermittently confused with difficulty remembering what we talked about several minutes prior to his 's arrival. His abdomen is soft and non-tender. He denies shortness of breath, chest pain, abdominal pain, nausea, vomiting, fever, chills. He is voiding via bermeo catheter and now eliminating without difficulty. He is up ambulating with assistance. Exam Vital Signs (past 8 hours): - 08/08/18 22:56 08/09/18 00:00 Temperature 98.1 F Pulse Rate 98 H Respiratory Rate 18 Blood Pressure 106/56 L Pulse Oximetry 96 93 Fraction of Inspired Oxygen 24 Oxygen Delivery Method Room Air Oxygen Flow Rate 2 Narrative Exam Narrative: General: Middle-aged gentleman lying in bedside chair, appears comfortable, well-developed, well-nourished, appropriately interactive. HEENT: Normocephalic, atraumatic. External ears without defect. Pupils equal, round, and reactive to light and accommodation. Anicteric sclerae, moist conjunctivae, and no lid lag. Neck: Supple with full range of motion. No lymphadenopathy or thyromegaly. Cardiovascular: Regular rate and rhythm without murmurs, rubs, or gallops appreciated Pulmonary: Clear to auscultation bilaterally without crackles, wheezes, or rhonchi. Normal respiratory effort with no use of accessory muscles. Abdomen: Soft, bowel sounds present, non-tender, non-distended. No rebound or guarding. No hepatosplenomegaly or masses appreciated. Small umbilical hernia reducible. Extremities: No clubbing, cyanosis, or edema. Skin: Normal temperature, turgor, and texture; no rash, ulcers, or subcutaneous nodules appreciated. Neurological: Cranial nerves grossly intact. Psychiatric: Depressed mood and flat affect. Ongoing mild confusion. Objective Labs Result Diagrams: 08/09/18 07:11 08/09/18 07:11 Assessment & Plan Plan: Assessment/Plan Narrative: Edgardo Cotter is an 83-year-old male with a past medical history significant for CAD, hypertension, hyperlipidemia, anxiety, depression, multiple abdominal surgeries including, previous lysis of adhesions, who is now status post extensive lumbar spinal surgery in which we were consulted for postop ileus versus SBO and medical management of multiple comorbidities. 1. Acute post-operative Ileus, not present on admission. Improving. -Chest/Abdominal series demonstrated mild to moderate dilation of fluid- filled small bowel loops consistent with partial small bowel obstruction. Moderate stool is present suggestive constipation. Repeat abdominal series demonstrated post-op ileus that is improving compared to 08/02/18. -Small-bowel follow-through demonstrated normal contrast transit time with no definite pathologically dilated bowel or transition point and moderate stool. Patient has had several bowel movements since study. -Octreotide was given to decrease GI secretions and has been discontinued as secretions decreased substantially. -General surgery is following. Per surgery, NG tube removed yesterday, start clear liquid diet this morning and continue TPN (started on 08/04) until tolerating PO intake. Continue IVF are with NS at 75mL/hr. Does not have a free water deficit. 2. Acute E. coli urinary tract infection, secondary to chronic indwelling catheter, not present on admission. Active. -Leukocytosis has been trending up since 08/05. -Urine culture grew pansensitive E coli. Continue levofloxacin 750 mg IV x 7 days. -Changed Bermeo catheter 08/08. 3. Acute leukocytosis, present on admission. Improving. -Initial leukocytosis was likely due to steroid addition for dural tear. Now likely secondary to dehydration versus true infection. -Since 08/05 WBC has trended up and initially thought to be related to UTI. Despite addition of levofloxacin for which E. coli UTI is sensitive to WBC still trending up. Ordered fungal blood cultures x2, peripheral and PICC line. -Discussed the patient with Dr. Kelly of Infectious Disease. Clinically the patient is improving and showing no signs of infection other than worsening leukocytosis. Dr. Kelly recommended watchful waiting in regard to broadening antibiotics or adding antifungal coverage such as capsofungin, and to stop TPN, as soon as, reasonable PO intake. Continue to monitor for worsening signs of infection. 4. Acute kidney injury secondary to dehydration and prerenal azotemia, not present on admission. -IV fluids were discontinued on 08/06. Patient receiving TPN. General surgery advancing diet to clear liquids, NO carbonation today. -Restarted normal saline at 100 mL/hr. -Avoid nephrotoxic agents. -Monitor creatinine daily. 5. Acute laryngospasm, not present on admission. Resolving. -Reactive laryngospasm and hiccups due to NG tube causing diaphragmatic irritation which has now been removed. -continue baclofen 10 mg every 6 hours as needed for hiccups and laryngospasm. -Oral home medications have been switched to equivalent IV, liquid form, or held (see below). Plan to switch back to oral in the next 1-2 days if patient is tolerating PO intake. 6. Acute extensive lumbar spinal surgery, not present on admission. Active. -Defer to orthopedic notes for postoperative observation. Discussed with LESLIE Gtz today. 7. Acute transaminitis, secondary to parenteral nutrition, not present on admission. Resolving. -TPN has been adjusted for amount of protein content. -Advancing diet to clear liquid diet, NO carbonation today. If tolerating p.o. intake will likely discontinue TPN in the next 1-2 days. 8. Depression, chronic, present on admission. Stable. -Continued with oral venlafaxine, crushed, to avoid withdrawal and now NG tube has been . Will restart oral when diet has been 8. Anxiety, chronic, present on admission. Stable. -He has a longstanding anxiety with benzodiazapine dependency. Will continue lorazepam IV as needed. 9. CAD, chronic, present on admission. Stable. -Patient NPO and held PO meds losartan, atorvastatin, HCTZ. -Ordered IV Labetalol and hydralazine as needed while NPO. 10. Hypertension, chronic, present on admission. Stable. -Patient NPO and held PO meds HCTZ and losartan. -Ordered labetalol and hydralazine as needed IV equivalents. 11. Hyperlipedemia, chronic, present on admission. Stable. -Held PO meds atorvastatin. 12. GERD, chronic, present on admission. Stable. -Continue home PPI with Protonix IV. Thank you for allowing us to participate in this patients care. We will continue to follow along with you. Quality VTE Deep Vein Thrombosis/Pulmonary Embolism Present on Admission: No
[2018-08-09 07:49] LABS: Alanine Aminotransferase 131 IU/L (21-72); Albumin 2.9 g/dL (3.5-5.0); Albumin Globulin Ratio 0.9 (1.0-2.8); Alkaline Phosphatase 187 U/L (38-126); Aspartate Aminotransferase 71 IU/L (17-59); BUN Creatinine Ratio 31.5 (6-22); Bilirubin Total 0.6 mg/dL (0.2-1.3); Blood Urea Nitrogen 41 mg/dL (9-20); Calcium 8.2 mg/dL (8.4-10.2); Carbon Dioxide 27 mmol/L (22-32); Chloride 106 mmol/L (98-107); Estimated Glomerular Filt Rate 52.9 mL/min (>60); Globulin 3.2 g/dL (1.7-4.1); Glucose 130 mg/dL (80-110); HEMOLYSIS < 15 (0-50); Potassium 3.9 mmol/L (3.4-5.1); Sodium 141 mmol/L (137-145); Total Protein 6.1 g/dL (6.3-8.2)
[2018-08-09 07:50] LABS: Add Manual Diff / Slide Review NO; Basophils Absolute Auto 100 /uL (0-100); Basophils Percent Auto 0.6 % (0-2); Eosinophils Absolute Auto 600 /uL (0-450); Eosinophils Percent Auto 3.4 % (2-4); Hematocrit 25.2 % (41-53); Hemoglobin 8.4 g/dL (13.5-17.5); Lymphocytes Absolute Auto 1700 /uL (1100-4500); Mean Corpuscular HGB Conc 33.5 % (30-36); Mean Corpuscular Hemoglobin 29.9 PG (26-34); Mean Corpuscular Volume 89.2 fL (80-100); Monocytes Absolute Auto 3100 /uL (0-900); Monocytes Percent Auto 16.6 % (3-14); Neutrophils Absolute Auto 13100 /uL (1500-7000); Neutrophils Percent Auto 70.4 % (50-75); Platelet Count 319 X10^3/uL (150-400); Red Blood Cell Count 2.82 X10^6/uL (4.5-5.9); Red Cell Distribution Width 12.7 % (11.6-14.8); White Blood Cell Count 18.6 X10^3/uL (4.5-11.0)
[2018-08-09 08:16] VITALS: BP 109/55; PULSE 82; RESP 15; TEMP 37; O2SAT 95
[2018-08-09] MEDS: SODIUM CHLORIDE 0.9% 1,000 ML 100 ML IV ×3 (09:24→20:31)
[2018-08-09] MEDS: PANTOPRAZOLE 40 MG VIAL IV (09:27)
[2018-08-09] MEDS: VENLAFAXINE 37.5 MG TABLET PO ×2 (09:28→20:32)
--- NOTE | 2018-08-09 09:38 | P.PN_ITS ---
Subjective Date Patient Seen: 08/09/18 Time Patient Seen: 09:37 Interval history: POD #9 s/p TLIF with Dr. Gallo. Patient had complaints of a positional headache yesterday afternoon, and worsening back pain. Dressing was removed and there was no active drainage or seromas at incisions. It was determined he was likely having a headache from not enough fluids and requested he have fluids going at 75cc/hour. Patient has no complaints of headaches this morning. His back pain is tolerable today. He has been ambulating with PT throughout his stay. He is on Levofloxacin for UTI. He developed a post-operative ileus and required TPN. He was started on clear fluids today. He does have ongoing leukocytosis that hospitalist team is getting fungal blood cultures. Dr. Kelly was consulted, and holding off on starting any new abx or anti-fungals. Exam Vital Signs (past 8 hours): - 08/09/18 05:30 08/09/18 08:16 Temperature 98.5 F 98.6 F Pulse Rate 86 82 Respiratory Rate 18 15 Blood Pressure 121/56 L 109/55 L Pulse Oximetry 95 95 Fraction of Inspired Oxygen 24 Oxygen Delivery Method Room Air Oxygen Flow Rate 2 Narrative Exam Narrative: Patient sitting in bedside chair in NAD. He is alert and oriented X3. Dressing on back is CDI. Calves are soft, compressible, and nontender bilaterally. SILT throughout BLEs. Objective Labs Result Diagrams: 08/09/18 07:11 08/09/18 07:11 Labs: Laboratory Results - last 24 hr 08/09/18 08/09/18 07:11 07:11 WBC 18.6 H RBC 2.82 L Hgb 8.4 L Hct 25.2 L MCV 89.2 MCH 29.9 MCHC 33.5 RDW 12.7 Plt Count 319 Neut % (Auto) 70.4 Lymph % (Auto) 9.0 L [place] % (Auto) 16.6 H Eos % (Auto) 3.4 Baso % (Auto) 0.6 Neut # (Auto) 89051 H Lymph # (Auto) 1700 [place] # (Auto) 3100 H Eos # (Auto) 600 H Baso # (Auto) 100 Sodium 141 Potassium 3.9 Chloride 106 Carbon Dioxide 27 BUN 41 H Creatinine 1.30 H Estimated GFR 52.9 L BUN/Creatinine Ratio 31.5 H Glucose 130 H Calcium 8.2 L Magnesium 2.0 Total Bilirubin 0.6 AST 71 H ALT 131 H Alkaline Phosphatase 187 H Total Protein 6.1 L Albumin 2.9 L Globulin 3.2 Albumin/Globulin Ratio 0.9 L Assessment & Plan Post-op (1) Ileus, postoperative: Current Visit: Yes Status: Acute (2) S/P lumbar fusion: Current Visit: Yes Status: Acute (3) Chronic indwelling Andres catheter: Current Visit: Yes Status: Acute Postoperative Procedures Operation Date: 07/31/18 07:45 <No data on this case meets the specified criteria> Operation Date: 07/31/18 07:45 Actual Procedures Side Surgeon p L2-3,L3-4 TLIF - L4-5,L5-S1 HWR & exploration of fusion, L2-S1 PSF w/Instru Alyse Gallo MD Patient will continue to mobilize with PT. No excessive bending, lifting, or twisting. Hospitalist team and general surgery team managing medical issues. Discharge once medically stable per hospitalist and general surgery. Quality VTE Deep Vein Thrombosis/Pulmonary Embolism Present on Admission: No
[2018-08-09] MEDS: SODIUM CHLORIDE 0.9% FLUSH 10 ML IV (10:11)
--- NOTE | 2018-08-09 10:49 | PC.NURSE ---
Addendum entered by Cayla Sanchez R.N. 08/09/18 12:45: PICC - DI in and x1 lumen was flushed with addl heparin and blood cultures were drawn and sent to lab. Original Note: Addendum entered by Cayla Sanchez R.N. 08/09/18 11:58: MS/PAIN - back pain incr while lying in bed, repositioned, ice pack added, later up with phys therapy, spouse at side, ambul hallway, ret chair for clear liq lunch, earlier tylenol and sales development consultant providing adequate relief. Original Note: AM NOTE - awake, req up br, assist to dangle, denies dizziness, w/fww, ambul br w/flatus and loose brown stool, ret to chair, bermeo w/layo urine, denies nausea, dble lumen picc w/tpn, ns at 25ml/hr, spoke to this am and ivf incr to NS @ 100ml/hr, pain managed w/sales development consultant, barrier dsg back cdi, ra 96%, discussed bld cultures with , the Picc does not draw, with repositioning or heparin flush, Maritza CARVALHO contacted and will attempt to see if line with draw, the perif blood cultures were completed, and as pt has some concerns re bermeo change, per bladder scan completed with 14ml urine, Dr. trujillo, and MD spoke to and new order for for clear liq to start.
[2018-08-09] MEDS: ACETAMINOPHEN 325 MG TABLET 650 MG PO (11:06)
[2018-08-09 12:00] VITALS: BP 125/88; PULSE 86; RESP 16; TEMP 36.5; O2SAT 92
--- NOTE | 2018-08-09 12:43 | PT.IPTN ---
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, lumbar region without neurogenic claudication (07/31/18) Abdominal distension (gaseous) (07/31/18) Personal history of other medical treatment (07/31/18) Arthrodesis status (07/31/18) Surgery Performed Operation Date: 07/31/18 07:45 <No data on this case meets the specified criteria> Operation Date: 07/31/18 07:45 Actual Procedures p L2-3,L3-4 TLIF - L4-5,L5-S1 HWR & exploration of fusion, L2-S1 PSF w/Instru - Alyse Gallo MD Physical Therapy Treatment Note M2 PT-IP Current Condition Start: 07/31/18 15:46 Freq: NEEDED Status: Active Protocol: Document 08/01/18 13:20 AB (Rec: 08/01/18 15:56 AB [id number]) Physical Therapy Current Condition Current Condition Evaluation Date 08/01/18 Treatment Diagnosis s/p L2-4 TLIF, difficulty in walking Onset Date 07/31/18 Precautions Lumbar Precautions Log Roll No Twisting Limit Bending Lifting Restriction of 10 lbs Gait Belt above Incisional Area M3 PT-IP Subjective Start: 07/31/18 15:46 Freq: NEEDED Status: Active Protocol: Document 08/09/18 11:00 HH (Rec: 08/09/18 12:41 [email or web address]) Subjective Physical Therapy Visit Type Type Treatment Note Visit Start Time 11:00 Visit Stop Time 11:30 Total Visit Minutes 30 Notes Per RN, pt has been amb around the acute care hallway with FWW SBA Physical Therapy Visit Comments Patient Comments My back is more painful compared to the past 2 days. LBP 3/10 and i walked to bathroom early this morning. Therapy Pain Assessment Pain When Pain Assessed During Mobility Pain Present Pain Present Pain Reported Location Lower Back Intensity 3 Scale Used Numeric (1 - 10) Description Acute Pain Management Techniques Apply Cold M4 PT-IP Mobility and Gait Start: 07/31/18 15:46 Freq: NEEDED Status: Active Protocol: Document 08/09/18 11:00 HH (Rec: 08/09/18 12:41 [email or web address]) PT-Bed Mobility Assessment Rolling Type of Rolling Log Rolling Level of Assist Standby Assistance Supine to Sit Supine to Sit Standby Assistance Sit to Supine Sit to Supine Standby Assistance Scooting Scooting to Edge of Bed Independent Scooting Up and Down in Bed Independent PT-Transfer Assessment Sit to and From Stand Sit to and from Stand Independent Equipment Transfer Assistive Device Gait Belt Front Wheeled Walker Transfers Transfer Destination Bed Chair Transfer Technique Stand Step Pivot Transfer Ability Level of Assist Standby Assistance Comments Mobility Comments Pt requires SBA/ CGA during supine to sit for his B LE. Pt is able to recall 3/3 spinal precautions. Gait Assessment Gait Gait Assistance Required: Standby Assistance Distance (Feet) 300 Able to Maintain Weight Bearing Status Yes During Gait Assistive Devices Assistive Device None Gait Belt Gait Deviations General Gait Pattern Decreased Stride Length Decreased Feet Clearance Comments Gait Comments Attempted amb without AD today . Pt demonstrates overall safe amb without signs of LOB and acute distress. Pt amb 300 feet with SBA but slight decreased feet clearance and stride length per pt and report. Stair Climbing Assessment Evaluation Level of Assist On Stairs Standby Assistance Devices Stair Climbing Assistive Devices Left Railing Right Railing Technique/Endurance Stair Climbing Direction Ascend and Descend Stair Climbing Technique Step Over Step Number of Steps Climbed 3 Query Text: Stair Climbing Set # Repetitions (reps) 4 Comments Stair Climbing Comments pt negotiated 3 steps x 4 times with b rails without signs of LOB and acute distress. PT-Balance Assessment Sitting Balance and Reactions Static Sitting Balance Ability Normal Dynamic Sitting Balance Ability Normal Standing Balance and Reactions Static Standing Balance Ability Good Dynamic Standing Balance Ability Good M5 PT-IP Objective Assessments Start: 07/31/18 15:46 Freq: NEEDED Status: Active Protocol: Document 08/01/18 13:20 AB (Rec: 08/01/18 15:56 AB [id number]) Orientation Orientation/Cognition Level of Alertness Alert Orientation Name Age Birthday Month Date Year Day of Week Place Situation Gross Range of Motion Lower Extremity ROM Assessment Within Functional Limits Strength Lower Extremity Strength Assessment Left Impaired Hip 3+/5 Knee 3+/5 Sensation Assessment Sensation Gross Sensation WNL M6 PT-IP Treatment Start: 07/31/18 15:46 Freq: NEEDED Status: Active Protocol: Document 08/04/18 10:30 CLB (Rec: 08/04/18 13:07 CLB [id number]) Physical Therapy Treatment Education Education Provided Precautions M7 PT-IP Assessment and Plan Start: 07/31/18 15:46 Freq: NEEDED Status: Active Protocol: Document 08/09/18 11:00 (Rec: 08/09/18 12:41 [email or web address]) PT Summary Assessment and Plan Summary Impairments Pain ROM Strength Bed Mobility Transfers Gait Activity Tolerance Progress Towards Goals Progressing Toward Goals Assessment Summary Pt performed and jag tx very well today. Pt amb 300 ft without AD for the first time today but presents decreased feet clearance and stride length. Pt also able to negotiate 3 steps with B rails x 4times with SBA. pt plans to go home and spouse to assist him but stated that spouse will not be able to assist him much due to spouse' s own medical issues. will continue to assess but pt will likely progress during hospital stay. Goals Bed Mobility Goal Independent Transfer Goal Independent Gait Goal Independent Gait Distance 500 Other Goals amb without AD stair climbing 4 steps with 1/ no rails Days to Meet Goals 2 Frequency of Treatment Frequency Of Treatment Twice a Day Treatment Plan Other Recommendations and Next Treatment amb without AD as jag Focus stair climbing as jag Recommendations To Nursing Amount of Assist Needed Standby Assistance 1 Person Assist Discharge Recommendations PT Discharge Recommendations Home with Assistance
--- NOTE | 2018-08-09 13:05 | OT.IP.TRT ---
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, lumbar region without neurogenic claudication (07/31/18) Abdominal distension (gaseous) (07/31/18) Personal history of other medical treatment (07/31/18) Arthrodesis status (07/31/18) Surgery Performed Operation Date: 07/31/18 07:45 <No data on this case meets the specified criteria> Operation Date: 07/31/18 07:45 Actual Procedures p L2-3,L3-4 TLIF - L4-5,L5-S1 HWR & exploration of fusion, L2-S1 PSF w/Instru - Alyse Gallo MD Occupational Therapy Treatment Note M2 OT-IP Current Condition Start: 08/01/18 14:24 Freq: Status: Active Protocol: Document 08/01/18 14:25 [facility] (Rec: 08/01/18 15:09 [facility] [email or web address]) Occupational Therapy Current Condition Current Condition Evaluation Date 08/01/18 Treatment Diagnosis Lumbar stenosis Diagnosis Onset Date 07/31/17 Post Operative Precautions Lumbar Precautions Log Roll No Twisting Limit Bending Lifting Restriction of 10 lbs Gait Belt above Incisional Area Weight Bearing Status Weight Bearing Status Weight Bear as Tolerated M3 OT- IP Subjective and Pain Start: 08/01/18 14:24 Freq: Status: Active Protocol: Document 08/09/18 13:02 [facility] (Rec: 08/09/18 13:05 [facility] [id number]) OT- Subjective Occupational Therapy Visit Type Visit Start Time 09:40 Visit Stop Time 09:50 Total Visit Minutes 15 Notes Also went in PM to talk to pt' s for 5 minutes. Pt still having difficulty to recall all back precautions as still groggy. Pt's has good understanding to be able to assist pt for all ADl needs at this time after his back sx.. Pt still here in the hospital due to medical needs and PT to continue to follow. Discharge from OT services. M4 OT- IP ADL's Start: 08/01/18 14:24 Freq: Status: Active Protocol: Document 08/03/18 11:44 [facility] (Rec: 08/03/18 11:55 [facility] [id number]) OT ADL-Dressing General Eval Lower Body Dressing Ability Minimal Assistance Maximum Assistance Areas Needing Assistance Retrieving/Set-up of Clothing Underpants/Brief Pants/Shorts Socks Comments OT Dressing Comments Educated pt on use of LB AEd and pt able to try donning sock while in bed as pt did not want to get up. M5 OT- IP IADL's Start: 08/01/18 14:24 Freq: Status: Active Protocol: Document 08/01/18 14:25 [facility] (Rec: 08/01/18 15:09 [facility] [email or web address]) OT-Instrumental Activities of Daily Living Medication Management Medication Management Comments Pt states does his own medications. Money Management Money Management Comments Pt states does his own. M6 OT- IP Functional Cognition Start: 08/01/18 14:24 Freq: Status: Active Protocol: Document 08/03/18 11:44 [facility] (Rec: 08/03/18 11:55 [facility] [email or web address]) Cognitive Factors Limiting Selfcare Function Cognitive Ability Level of Alertness Alert Patient Orientation Name Age Birthday Month Date Year Day of Week Place Situation Attention Span Ability Capable of Focused Attention Capable of Sustained Attention Ability to Follow Commands Able to Follow Multi-Step Commands Memory Description No Deficits Noted Cognitive Comments Cognitive Assessment Comments Pt following directions well. Discharge Recommendations OT Discharge Recommendations Home with Assistance Home Equipment Needs shower chair, HHSP, FWW LB AED
[2018-08-09] MEDS: levoFLOXacin 500 MG/100 ML PIGGYBACK 100 MG IV (14:04)
[2018-08-09 16:45] VITALS: BP 140/73; PULSE 81; RESP 18; TEMP 36.7; O2SAT 95
[2018-08-09] MEDS: FAT EMULSIONS 50 GM/250 ML EMULSION IV (18:22)
[2018-08-09] MEDS: AA 5 %/CALCIUM/LYTES/DEXT 20 % 1,500 ML with MULTIVITAMIN 10 ML, TRACE ELEMENTS 1 ML, I... 62.961 ML IV (18:22)
--- NOTE | 2018-08-09 18:53 | PM.PN.1 ---
Subjective Date Patient Seen: 08/09/18 Time Patient Seen: 18:53 Interval history: Patient feeling okay. No abdominal pain. Robert have his NG out. Passing lots of liquid stool. Exam Vital Signs (past 8 hours): - 08/09/18 12:00 08/09/18 16:45 Temperature 97.7 F 98.0 F Pulse Rate 86 81 Respiratory Rate 16 18 Blood Pressure 125/88 140/73 Pulse Oximetry 92 95 Fraction of Inspired Oxygen 24 Oxygen Delivery Method Room Air Oxygen Flow Rate 2 Narrative Exam Narrative: Good respiratory effort. Heart regular rate and rhythm without murmur gallop. Abdomen nontender even with vigorous shaking though this did elicit some mild right flank pain posteriorly. Objective Labs Result Diagrams: 08/10/18 06:44 08/10/18 06:44 Labs: Laboratory Results - last 24 hr 08/09/18 08/09/18 07:11 07:11 WBC 18.6 H RBC 2.82 L Hgb 8.4 L Hct 25.2 L MCV 89.2 MCH 29.9 MCHC 33.5 RDW 12.7 Plt Count 319 Neut % (Auto) 70.4 Lymph % (Auto) 9.0 L [place] % (Auto) 16.6 H Eos % (Auto) 3.4 Baso % (Auto) 0.6 Neut # (Auto) 90635 H Lymph # (Auto) 1700 [place] # (Auto) 3100 H Eos # (Auto) 600 H Baso # (Auto) 100 Sodium 141 Potassium 3.9 Chloride 106 Carbon Dioxide 27 BUN 41 H Creatinine 1.30 H Estimated GFR 52.9 L BUN/Creatinine Ratio 31.5 H Glucose 130 H Calcium 8.2 L Magnesium 2.0 Total Bilirubin 0.6 AST 71 H ALT 131 H Alkaline Phosphatase 187 H Total Protein 6.1 L Albumin 2.9 L Globulin 3.2 Albumin/Globulin Ratio 0.9 L Assessment & Plan Plan: Assessment/Plan Narrative: Tolerated the NG out. Tolerated liquid diet. Will start him on full liquids tomorrow. Hopefully we can get him on a diet and get him discharged soon. Quality VTE Deep Vein Thrombosis/Pulmonary Embolism Present on Admission: No
[2018-08-09 20:08] VITALS: BP 131/71; PULSE 73; RESP 16; TEMP 36.8; O2SAT 95
[2018-08-10] VITALS (10 sets, daily range): BP systolic 116–137; BP diastolic 57–81; PULSE 78–99; RESP 15–20; TEMP 36.7–37.2; O2SAT 93–96
--- NOTE | 2018-08-10 01:24 | PC.NURSE ---
Addendum entered by Siddharth Hutchins R.N. 08/10/18 05:16: [id number]: TPN infusing at 62.9ml/hr in 3 liter bag, with no adverse effects noted; Dr. Malcolm notified by phone of this. His orders are to continue this bag of TPN at the current rate. Original Note: Transitional Care Manager Note: 0000: Pt awake, asking to have his PICC site looked at due to feeling moisture at site. Tegaderm dressing is rolled back and insertion is exposed. No leakage noted. Dressing to site changed using sterile technique, and site prepped for cleansing. No leakage noted during or after dressing change. Vital signs stable. Pt using MEMBER SERVICES COORDINATOR for pain relief. Dressing to back is cdi.
[2018-08-10] MEDS: LORazepam 2 MG/ML SYRINGE 0.5 MG IV ×2 (05:59→12:07)
[2018-08-10] MEDS: MORPHINE PCA 30 MG/30 ML PCA.VIAL IV ×3 (06:07→20:10)
[2018-08-10] MEDS: SODIUM CHLORIDE 0.9% 1,000 ML 100 ML IV ×2 (06:44→20:04)
[2018-08-10 07:04] LABS: Alanine Aminotransferase 127 IU/L (21-72); Albumin 2.4 g/dL (3.5-5.0); Albumin Globulin Ratio 0.9 (1.0-2.8); Alkaline Phosphatase 192 U/L (38-126); Aspartate Aminotransferase 81 IU/L (17-59); BUN Creatinine Ratio 36.3 (6-22); Bilirubin Total 0.5 mg/dL (0.2-1.3); Blood Urea Nitrogen 29 mg/dL (9-20); Calcium 7.6 mg/dL (8.4-10.2); Carbon Dioxide 26 mmol/L (22-32); Chloride 106 mmol/L (98-107); Estimated Glomerular Filt Rate > 60.0 mL/min (>60); Globulin 2.6 g/dL (1.7-4.1); Glucose 114 mg/dL (80-110); HEMOLYSIS 17 (0-50); Potassium 4.4 mmol/L (3.4-5.1); Sodium 137 mmol/L (137-145)
[2018-08-10 07:10] LABS: Hematocrit 21.6 % (41-53); Hemoglobin 7.3 g/dL (13.5-17.5); Mean Corpuscular HGB Conc 33.9 % (30-36); Mean Corpuscular Hemoglobin 29.9 PG (26-34); Mean Corpuscular Volume 88.1 fL (80-100); Platelet Count 309 X10^3/uL (150-400); Red Blood Cell Count 2.45 X10^6/uL (4.5-5.9); Red Cell Distribution Width 12.5 % (11.6-14.8); White Blood Cell Count 16.6 X10^3/uL (4.5-11.0)
[2018-08-10 07:11] LABS: Add Manual Diff / Slide Review YES
[2018-08-10 07:51] LABS: Neutrophils Absolute Manual 12616 /uL (3000-5900); Total Cells Counted 100
[2018-08-10 07:52] LABS: RBC Morphology Normal Morphology
[2018-08-10 07:57] LABS: Procalcitonin 0.07 ng/mL (<0.5)
[2018-08-10] MEDS: VENLAFAXINE 37.5 MG TABLET PO ×2 (09:17→20:08)
[2018-08-10] MEDS: PANTOPRAZOLE 40 MG VIAL IV (09:17)
[2018-08-10] MEDS: SODIUM CHLORIDE 0.9% FLUSH 10 ML IV ×2 (09:17→20:10)
--- NOTE | 2018-08-10 10:03 | P.PN_ITS ---
Subjective Date Patient Seen: 08/10/18 Time Patient Seen: 10:03 Interval history: POD #10 s/p TLIF with Dr. Gallo. Patient has no complaints of headaches this morning. His back pain is tolerable today. He has been ambulating with PT throughout his stay. He is on Levofloxacin for UTI. He developed a post-operative ileus and required TPN. He was started on full liquids today. Exam Vital Signs (past 8 hours): - 08/10/18 04:25 08/10/18 08:37 Temperature 98.3 F 98.4 F Pulse Rate 99 H 85 Respiratory Rate 18 17 Blood Pressure 136/69 131/62 Pulse Oximetry 96 93 Fraction of Inspired Oxygen 24 Oxygen Delivery Method Room Air Oxygen Flow Rate 0 Narrative Exam Narrative: Patient lying in bed in no acute distress. He is alert and oriented x3. Dressing is CDI. Calves are soft, compressible, nontender bilaterally. Pulses are symmetrical. Objective Labs Result Diagrams: 08/10/18 06:44 08/10/18 06:44 Labs: Laboratory Results - last 24 hr 08/10/18 08/10/18 08/10/18 06:44 06:44 06:44 WBC 16.6 H RBC 2.45 L Hgb 7.3 L Hct 21.6 L MCV 88.1 MCH 29.9 MCHC 33.9 RDW 12.5 Plt Count 309 Neut % (Auto) Not Reportable Lymph % (Auto) Not Reportable [place] % (Auto) Not Reportable Eos % (Auto) Not Reportable Baso % (Auto) Not Reportable Lymph # (Auto) Not Reportable [place] # (Auto) Not Reportable Baso # (Auto) Not Reportable Total Counted 100 Seg Neutrophils % 51.0 Band Neutrophils % 25.0 H Lymphocytes % (Manual) 3.0 L Monocytes % (Manual) 7.0 Eosinophils % (Manual) 9.0 H Basophils % (Manual) 3.0 H Metamyelocytes % 2.0 H Neutrophils # (Manual) 82910 H RBC Morphology Normal morphology Sodium 137 Potassium 4.4 Chloride 106 Carbon Dioxide 26 BUN 29 H Creatinine 0.80 Estimated GFR > 60.0 BUN/Creatinine Ratio 36.3 H Glucose 114 H Calcium 7.6 L Total Bilirubin 0.5 AST 81 H ALT 127 H Alkaline Phosphatase 192 H Total Protein 5.0 L Albumin 2.4 L Globulin 2.6 Albumin/Globulin Ratio 0.9 L Procalcitonin 0.07 Assessment & Plan Post-op Postoperative Procedures Operation Date: 07/31/18 07:45 <No data on this case meets the specified criteria> Operation Date: 07/31/18 07:45 Actual Procedures Side Surgeon p L2-3,L3-4 TLIF - L4-5,L5-S1 HWR & exploration of fusion, L2-S1 PSF w/Instru Alyse Gallo MD Patient will continue to mobilize with PT. No excessive bending, lifting, or twisting. Hospitalist team and general surgery team managing medical issues. Discharge once medically stable per hospitalist and general surgery. Quality VTE Deep Vein Thrombosis/Pulmonary Embolism Present on Admission: No
--- NOTE | 2018-08-10 10:55 | PT.IPTN ---
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, lumbar region without neurogenic claudication (07/31/18) Abdominal distension (gaseous) (07/31/18) Personal history of other medical treatment (07/31/18) Arthrodesis status (07/31/18) Surgery Performed Operation Date: 07/31/18 07:45 <No data on this case meets the specified criteria> Operation Date: 07/31/18 07:45 Actual Procedures p L2-3,L3-4 TLIF - L4-5,L5-S1 HWR & exploration of fusion, L2-S1 PSF w/Instru - Alyse Gallo MD Physical Therapy Treatment Note M2 PT-IP Current Condition Start: 07/31/18 15:46 Freq: NEEDED Status: Active Protocol: Document 08/01/18 13:20 AB (Rec: 08/01/18 15:56 AB [id number]) Physical Therapy Current Condition Current Condition Evaluation Date 08/01/18 Treatment Diagnosis s/p L2-4 TLIF, difficulty in walking Onset Date 07/31/18 Precautions Lumbar Precautions Log Roll No Twisting Limit Bending Lifting Restriction of 10 lbs Gait Belt above Incisional Area M3 PT-IP Subjective Start: 07/31/18 15:46 Freq: NEEDED Status: Active Protocol: Document 08/10/18 10:55 GGD (Rec: 08/10/18 12:24 GGD [email or web address]) Subjective Physical Therapy Visit Type Type Treatment Note Visit Start Time 10:30 Visit Stop Time 10:55 Total Visit Minutes 25 Physical Therapy Visit Comments Patient Comments Pt states he having more pain. Therapy Pain Assessment Pain When Pain Assessed During Mobility Pain Present Pain Present Pain Reported Location Lower Back Intensity 6 Scale Used Numeric (1 - 10) M4 PT-IP Mobility and Gait Start: 07/31/18 15:46 Freq: NEEDED Status: Active Protocol: Document 08/10/18 10:55 GGD (Rec: 08/10/18 12:24 GGD [email or web address]) PT-Transfer Assessment Sit to and From Stand Sit to and from Stand Independent Equipment Transfer Assistive Device Gait Belt Front Wheeled Walker Transfers Transfer Destination Chair Transfer Technique Stand Step Pivot Transfer Ability Level of Assist Standby Assistance Gait Assessment Gait Gait Assistance Required: Standby Assistance Distance (Feet) 850 Able to Maintain Weight Bearing Status Yes During Gait Assistive Devices Assistive Device None Gait Belt Front Wheeled Walker Gait Deviations General Gait Pattern Decreased Stride Length Decreased Feet Clearance Comments Gait Comments Pt ambulated 400 feet with FWW with SBA and then 400 feet without assistive device with CGA. M5 PT-IP Objective Assessments Start: 07/31/18 15:46 Freq: NEEDED Status: Active Protocol: Document 08/01/18 13:20 AB (Rec: 08/01/18 15:56 AB [id number]) Orientation Orientation/Cognition Level of Alertness Alert Orientation Name Age Birthday Month Date Year Day of Week Place Situation Gross Range of Motion Lower Extremity ROM Assessment Within Functional Limits Strength Lower Extremity Strength Assessment Left Impaired Hip 3+/5 Knee 3+/5 Sensation Assessment Sensation Gross Sensation WNL M6 PT-IP Treatment Start: 07/31/18 15:46 Freq: NEEDED Status: Active Protocol: Document 08/04/18 10:30 CLB (Rec: 08/04/18 13:07 CLB [id number]) Physical Therapy Treatment Education Education Provided Precautions M7 PT-IP Assessment and Plan Start: 07/31/18 15:46 Freq: NEEDED Status: Active Protocol: Document 08/10/18 10:55 GGD (Rec: 08/10/18 12:24 GGD [email or web address]) PT Summary Assessment and Plan Summary Assessment Summary Pt able to progress gait distance. He did he have increase in fatigue with gait without assistive device after 300 feet of gait. He mild unsteadiness with gait. Pt safe for home D/C home when medically stable. Frequency of Treatment Frequency Of Treatment Once a Day Treatment Plan Other Recommendations and Next Treatment amb without AD as jag Focus stair climbing as jag Recommendations To Nursing Amount of Assist Needed Standby Assistance 1 Person Assist Discharge Recommendations PT Discharge Recommendations Home with Assistance
[2018-08-10] MEDS: levoFLOXacin 500 MG/100 ML PIGGYBACK 100 MG IV (14:08)
--- NOTE | 2018-08-10 15:04 | PC.NURSE ---
is aware of crit at 21, pt is sleeping soundly.
--- NOTE | 2018-08-10 15:20 | PM.PN.1 ---
Subjective Date Patient Seen: 08/10/18 Interval history: Patient appears confused, a bit disoriented, feels very weak and tired. Had bowel movement today though not eating much in way of the full liquid diet. TPN scheduled to discontinue this evening. Exam Vital Signs (past 8 hours): - 08/10/18 08:37 08/10/18 12:02 Temperature 98.4 F 98.5 F Pulse Rate 85 87 Respiratory Rate 17 15 Blood Pressure 131/62 116/68 Pulse Oximetry 93 94 Fraction of Inspired Oxygen 24 Oxygen Delivery Method Room Air Oxygen Flow Rate 0 Narrative Exam Narrative: GENERAL: Alert but seems confused and a little restless HEENT: Mucous membranes moist CHEST: Clear to auscultation bilaterally. CARDIAC: Regular rate and rhythm. ABDOMEN: Bowel sounds present, Nondistended, soft, nontender EXTREMITIES: no edema. NEUROLOGICAL: Nonfocal SKIN: Warm, dry, no petechiae, no rash Objective Labs Result Diagrams: 08/10/18 06:44 08/10/18 06:44 Labs: Laboratory Results - last 24 hr 08/10/18 08/10/18 08/10/18 06:44 06:44 06:44 WBC 16.6 H RBC 2.45 L Hgb 7.3 L Hct 21.6 L MCV 88.1 MCH 29.9 MCHC 33.9 RDW 12.5 Plt Count 309 Neut % (Auto) Not Reportable Lymph % (Auto) Not Reportable [place] % (Auto) Not Reportable Eos % (Auto) Not Reportable Baso % (Auto) Not Reportable Lymph # (Auto) Not Reportable [place] # (Auto) Not Reportable Baso # (Auto) Not Reportable Total Counted 100 Seg Neutrophils % 51.0 Band Neutrophils % 25.0 H Lymphocytes % (Manual) 3.0 L Monocytes % (Manual) 7.0 Eosinophils % (Manual) 9.0 H Basophils % (Manual) 3.0 H Metamyelocytes % 2.0 H Neutrophils # (Manual) 87658 H RBC Morphology Normal morphology Sodium 137 Potassium 4.4 Chloride 106 Carbon Dioxide 26 BUN 29 H Creatinine 0.80 Estimated GFR > 60.0 BUN/Creatinine Ratio 36.3 H Glucose 114 H Calcium 7.6 L Total Bilirubin 0.5 AST 81 H ALT 127 H Alkaline Phosphatase 192 H Total Protein 5.0 L Albumin 2.4 L Globulin 2.6 Albumin/Globulin Ratio 0.9 L Procalcitonin 0.07 Assessment & Plan Plan: Assessment/Plan Narrative: Edgardo Cotter is an 83-year-old male with a past medical history significant for CAD, hypertension, hyperlipidemia, anxiety, depression, multiple abdominal surgeries including, previous lysis of adhesions, who is now status post extensive lumbar spinal surgery in which we were consulted for postop ileus versus SBO and medical management of multiple comorbidities. 1. Acute post-operative Ileus, not present on admission. Improving. -Chest/Abdominal series demonstrated mild to moderate dilation of fluid-filled small bowel loops consistent with partial small bowel obstruction. Moderate stool is present suggestive constipation. Repeat abdominal series demonstrated post-op ileus that is improving compared to 08/02/18. -Small-bowel follow-through demonstrated normal contrast transit time with no definite pathologically dilated bowel or transition point and moderate stool. Patient has had several bowel movements since study. -Octreotide was given to decrease GI secretions and has been discontinued as secretions decreased substantially. -General surgery is following. Per surgery, NG tube removed 08/08/2018, TPN discontinued 08/10/2018 -continue full liquid diet, encourage p.o. intake 2. Acute E. coli urinary tract infection, secondary to chronic indwelling catheter, not present on admission. Active. -Leukocytosis was trending up but now improving -Urine culture grew pansensitive E coli. Continue levofloxacin 750 mg IV x 7 days. -Changed Andres catheter 08/08. 3. Acute leukocytosis, present on admission. Improving. -Initial leukocytosis was likely due to steroid addition for dural tear. Now likely secondary to dehydration versus true infection. WBC was trending up but improving as of 08/10/2018. -Discussed the patient with Dr. Kelly of Infectious Disease. Clinically the patient is improving and showing no signs of infection other than worsening leukocytosis. Dr. Kelly recommended watchful waiting in regard to broadening antibiotics or adding antifungal coverage such as capsofungin, and to stop TPN, as soon as, reasonable PO intake. Continue to monitor for worsening signs of infection. 4. Acute kidney injury secondary to dehydration and prerenal azotemia, not present on admission. Resolving. -continue normal saline at 100 mL/hr. -Avoid nephrotoxic agents. 5. Acute laryngospasm, not present on admission. Resolving. -Reactive laryngospasm and hiccups due to NG tube causing diaphragmatic irritation which has now been removed. -continue baclofen 10 mg every 6 hours as needed for hiccups and laryngospasm. -Oral home medications have been switched to equivalent IV, liquid form, or held (see below). Plan to switch back to oral in the next 1-2 days if patient is tolerating PO intake. 6. Acute extensive lumbar spinal surgery, not present on admission. Active. -Defer to orthopedic notes for postoperative observation. Discussed with LORETTA today. 7. Acute transaminitis, secondary to parenteral nutrition, not present on admission. Resolving. 8. Depression, chronic, present on admission. Stable. -Continued with oral venlafaxine 8. Anxiety, chronic, present on admission. Stable. -He has a longstanding anxiety with benzodiazapine dependency. He was taking lorazepam 0.5 mg in a.m. and 1 mg at night as a routine. -DC IV lorazepam. Oral lorazepam 0.5 mg twice daily scheduled. 9. CAD, chronic, present on admission. Stable. -resumed aspirin 81 mg q.d., atorvastatin 40 mg HS. 10. Hypertension, chronic, present on admission. Stable. -have not resumed losartan and HCTZ since BP running normal. 11. Acute encephalopathy, postop, multifactorial -patient appearing confused, likely multifactorial due to postop complications 12. Postop anemia, likely blood loss and acute stress -worsening anemia, transfuse 2 units PRBC on 08/10/2018 -repeat CBC in a.m. Thank you for allowing us to participate in this patients care. We will continue to follow along with you. Quality VTE Deep Vein Thrombosis/Pulmonary Embolism Present on Admission: No
--- NOTE | 2018-08-10 15:42 | P.PN_ITS ---
Subjective Date Patient Seen: 08/10/18 Time Patient Seen: 12:30 Interval history: Patient feels okay. Nursing reports that he is a little confused. Denies any abdominal pain. Has been having bowel movements. Not passing a lot of flatus. No chest pain or heart problems. No black or bloody bowel movements. No seizures or blackouts. Exam Vital Signs (past 8 hours): - 08/10/18 08:37 08/10/18 12:02 Temperature 98.4 F 98.5 F Pulse Rate 85 87 Respiratory Rate 17 15 Blood Pressure 131/62 116/68 Pulse Oximetry 93 94 Fraction of Inspired Oxygen 24 Oxygen Delivery Method Room Air Oxygen Flow Rate 0 Narrative Exam Narrative: No apparent distress. Lungs are clear to auscultation. No rales or rhonchi. Heart regular rate and rhythm without murmur gallop. No heave lift or thrill. Abdomen is bit distended but very soft. Nontender with vigorous shaking. Hernias noted but a reducible and not tender. Objective Labs Result Diagrams: 08/10/18 06:44 08/10/18 06:44 Labs: Laboratory Results - last 24 hr 08/10/18 08/10/18 08/10/18 06:44 06:44 06:44 WBC 16.6 H RBC 2.45 L Hgb 7.3 L Hct 21.6 L MCV 88.1 MCH 29.9 MCHC 33.9 RDW 12.5 Plt Count 309 Neut % (Auto) Not Reportable Lymph % (Auto) Not Reportable [place] % (Auto) Not Reportable Eos % (Auto) Not Reportable Baso % (Auto) Not Reportable Lymph # (Auto) Not Reportable [place] # (Auto) Not Reportable Baso # (Auto) Not Reportable Total Counted 100 Seg Neutrophils % 51.0 Band Neutrophils % 25.0 H Lymphocytes % (Manual) 3.0 L Monocytes % (Manual) 7.0 Eosinophils % (Manual) 9.0 H Basophils % (Manual) 3.0 H Metamyelocytes % 2.0 H Neutrophils # (Manual) 52836 H RBC Morphology Normal morphology Sodium 137 Potassium 4.4 Chloride 106 Carbon Dioxide 26 BUN 29 H Creatinine 0.80 Estimated GFR > 60.0 BUN/Creatinine Ratio 36.3 H Glucose 114 H Calcium 7.6 L Total Bilirubin 0.5 AST 81 H ALT 127 H Alkaline Phosphatase 192 H Total Protein 5.0 L Albumin 2.4 L Globulin 2.6 Albumin/Globulin Ratio 0.9 L Procalcitonin 0.07 Assessment & Plan Plan: Assessment/Plan Narrative: Patient with postop ileus. NG was removed. He has been tolerating clear liquids. I advanced him to a full liquid diet. I talked with the pharmacist about the concern using Reglan and with his other medications. It turns out that the risk is probably pretty minimal despite the warning. I believe it is worth the risk given that we can't seem to progress and would like to begin him on Reglan to see if I can get his stomach and GI tract to work better. Reglan has been ordered. Consideration should be given to transfusing this patient. He is 83 his hematocrit is 21 and it may improve his overall function and thinking. Quality VTE Deep Vein Thrombosis/Pulmonary Embolism Present on Admission: No
--- NOTE | 2018-08-10 18:57 | PC.NURSE ---
Shift note/1st unit PRBC Patient awake, dozing occasionally. Ox3 and situation, signed blood consent & denies questions or concerns. Patient called on telephone & notified her that he needs blood transfusion, she said she would be here 0900 and aware that wants to have a meeting regarding plan. TPN complete and this has been DC'd per new order. PICC port flushed thoroughly with NS & HL'd for approx 1/2 hour. 1st unit PRBC's infusing as ordered, PICC to LUE is patent and infusing with no difficulty. 2nd port of DL PICC has NS infusing at TKO to allow for LEGAL EXECUTIVE while PRBC's infusing. Pt reports intermittent back pain and hiccups. Reminded him to use LEGAL EXECUTIVE. Using IS to 2500, instructed deep breathing/use of IS as due to hiccups it appears he is holding breath. Poor appetite, ate all of soup, refused remainder of liquid meal. Sipping on protein drink & ice water. Sitting in recliner, then transfered back to bed per his request. Refusing foot SCD's on saying they are really biting me. Reminded to use call button for needs/concerns, alarm active & fall precautions in place.
[2018-08-10] MEDS: METOCLOPRAMIDE 10 MG/2 ML INJ IV (20:08)
[2018-08-10] MEDS: ATORVASTATIN 20 MG TABLET 40 MG PO (20:08)
[2018-08-10] MEDS: LORazepam 0.5 MG TABLET PO (20:10)
[2018-08-11] VITALS (7 sets, daily range): BP systolic 116–141; BP diastolic 51–87; PULSE 71–90; RESP 15–20; TEMP 36.8–37.2; O2SAT 90–95
--- NOTE | 2018-08-11 00:31 | PC.NURSE ---
Chemical Cell Changer Note: 0010: Awake, asking for assistance to wash up at bedside. Up to bathroom with sba, was unsteady on his feet. Pt had liquid brown stool; he did vera care with assistance. Bed bath given. Pt using ROOM ATTENDANT for pain relief. Vital signs stable. PICC in place in lt upper arm, with dressing cdi. Surgical dressings cdi.
[2018-08-11] MEDS: MORPHINE PCA 30 MG/30 ML PCA.VIAL IV (06:15)
[2018-08-11] MEDS: METOCLOPRAMIDE 10 MG/2 ML INJ IV (06:16)
[2018-08-11 06:17] LABS: Basophils Absolute Auto 200 /uL (0-100); Basophils Percent Auto 1.1 % (0-2); Eosinophils Absolute Auto 600 /uL (0-450); Eosinophils Percent Auto 3.8 % (2-4); Lymphocytes Absolute Auto 1600 /uL (1100-4500); Lymphocytes Percent Auto 10.2 % (25-40); Mean Corpuscular HGB Conc 33.9 % (30-36); Mean Corpuscular Hemoglobin 28.9 PG (26-34); Mean Corpuscular Volume 85.3 fL (80-100); Monocytes Absolute Auto 2300 /uL (0-900); Monocytes Percent Auto 14.9 % (3-14); Neutrophils Absolute Auto 11000 /uL (1500-7000); Platelet Count 337 X10^3/uL (150-400); Red Blood Cell Count 3.11 X10^6/uL (4.5-5.9); Red Cell Distribution Width 15.8 % (11.6-14.8); White Blood Cell Count 15.8 X10^3/uL (4.5-11.0)
[2018-08-11 06:29] LABS: Alanine Aminotransferase 128 IU/L (21-72); Albumin 2.8 g/dL (3.5-5.0); Albumin Globulin Ratio 0.9 (1.0-2.8); Alkaline Phosphatase 229 U/L (38-126); Aspartate Aminotransferase 78 IU/L (17-59); BUN Creatinine Ratio 23.3 (6-22); Blood Urea Nitrogen 21 mg/dL (9-20); Carbon Dioxide 28 mmol/L (22-32); Chloride 104 mmol/L (98-107); Estimated Glomerular Filt Rate > 60.0 mL/min (>60); Globulin 3.1 g/dL (1.7-4.1); Glucose 97 mg/dL (80-110); HEMOLYSIS < 15 (0-50); Sodium 137 mmol/L (137-145); Total Protein 5.9 g/dL (6.3-8.2)
[2018-08-11 06:38] LABS: Hematocrit 26.6 % (41-53)
[2018-08-11 06:53] LABS: Add Manual Diff / Slide Review SLIDE REVIEW
[2018-08-11 07:31] LABS: Anisocytosis 1+; Target Cells 1+
[2018-08-11] MEDS: VENLAFAXINE 37.5 MG TABLET PO ×2 (08:15→20:57)
[2018-08-11] MEDS: ASPIRIN EC 81 MG TABLET PO (08:15)
[2018-08-11] MEDS: PANTOPRAZOLE 40 MG VIAL IV (08:16)
[2018-08-11] MEDS: SODIUM CHLORIDE 0.9% FLUSH 10 ML IV ×2 (08:16)
--- NOTE | 2018-08-11 10:16 | PM.PN.1 ---
Exam Vital Signs (past 8 hours): - 08/11/18 04:05 08/11/18 08:00 Temperature 98.3 F 98.7 F Pulse Rate 90 81 Respiratory Rate 18 15 Blood Pressure 137/87 140/62 Pulse Oximetry 95 90 L Fraction of Inspired Oxygen 24 Oxygen Delivery Method Room Air Oxygen Flow Rate 0 Objective Labs Result Diagrams: 08/11/18 06:00 08/11/18 06:00 Labs: Laboratory Results - last 24 hr 08/10/18 08/11/18 08/11/18 15:35 06:00 06:00 WBC 15.8 H RBC 3.11 L Hgb 9.0 L Hct 26.6 L MCV 85.3 MCH 28.9 MCHC 33.9 RDW 15.8 H Plt Count 337 Neut % (Auto) 70.0 Lymph % (Auto) 10.2 L [place] % (Auto) 14.9 H Eos % (Auto) 3.8 Baso % (Auto) 1.1 Neut # (Auto) 48387 H Lymph # (Auto) 1600 [place] # (Auto) 2300 H Eos # (Auto) 600 H Baso # (Auto) 200 H RBC Morphology Not Reportable Anisocytosis 1+ H Target Cells 1+ H Sodium 137 Potassium 4.0 Chloride 104 Carbon Dioxide 28 BUN 21 H Creatinine 0.90 Estimated GFR > 60.0 BUN/Creatinine Ratio 23.3 H Glucose 97 Calcium 8.0 L Total Bilirubin 1.0 AST 78 H ALT 128 H Alkaline Phosphatase 229 H Total Protein 5.9 L Albumin 2.8 L Globulin 3.1 Albumin/Globulin Ratio 0.9 L Blood Type O Positive Antibody Screen Negative Crossmatch See Detail Assessment & Plan Plan: Assessment/Plan Narrative: Patient is admitted after surgery. Patient has been stable and progressing with physical therapy. Patient is neurovascularly intact on exam. Patient has no signs or symptoms of DVT. Patient's dressing is clean dry and intact. Patient is POD#11 with ileus developed on POD #2. He is progressing with +BM yesterday. He is starting soft foods. COntinue medical management and discharge when cleared by medicine. His PICC has fluid leaking around and under the Tegaderm. Consider switch to IV and discontinue PICC if okay with surgery and medicine. Quality VTE Deep Vein Thrombosis/Pulmonary Embolism Present on Admission: No
--- NOTE | 2018-08-11 10:19 | P.PN_ITS ---
Exam Vital Signs (past 8 hours): - 08/11/18 04:05 08/11/18 08:00 Temperature 98.3 F 98.7 F Pulse Rate 90 81 Respiratory Rate 18 15 Blood Pressure 137/87 140/62 Pulse Oximetry 95 90 L Fraction of Inspired Oxygen 24 Oxygen Delivery Method Room Air Oxygen Flow Rate 0 Objective Labs Result Diagrams: 08/11/18 06:00 08/11/18 06:00 Labs: Laboratory Results - last 24 hr 08/10/18 08/11/18 08/11/18 15:35 06:00 06:00 WBC 15.8 H RBC 3.11 L Hgb 9.0 L Hct 26.6 L MCV 85.3 MCH 28.9 MCHC 33.9 RDW 15.8 H Plt Count 337 Neut % (Auto) 70.0 Lymph % (Auto) 10.2 L [place] % (Auto) 14.9 H Eos % (Auto) 3.8 Baso % (Auto) 1.1 Neut # (Auto) 89814 H Lymph # (Auto) 1600 [place] # (Auto) 2300 H Eos # (Auto) 600 H Baso # (Auto) 200 H RBC Morphology Not Reportable Anisocytosis 1+ H Target Cells 1+ H Sodium 137 Potassium 4.0 Chloride 104 Carbon Dioxide 28 BUN 21 H Creatinine 0.90 Estimated GFR > 60.0 BUN/Creatinine Ratio 23.3 H Glucose 97 Calcium 8.0 L Total Bilirubin 1.0 AST 78 H ALT 128 H Alkaline Phosphatase 229 H Total Protein 5.9 L Albumin 2.8 L Globulin 3.1 Albumin/Globulin Ratio 0.9 L Blood Type O Positive Antibody Screen Negative Crossmatch See Detail Assessment & Plan Plan: Assessment/Plan Narrative: Patient is admitted after surgery. Patient has been stable and progressing with physical therapy. Patient is neurovascularly intact on exam. Patient has no signs or symptoms of DVT. Patient's dressing is clean dry and intact. Patient is POD#11 with ileus developed on POD #2. He is progressing with +BM yesterday. He is starting soft foods. COntinue medical management and discharge when cleared by medicine. His PICC has fluid leaking around and under the Tegaderm. Consider switch to IV and discontinue PICC if okay with surgery and medicine. Quality VTE Deep Vein Thrombosis/Pulmonary Embolism Present on Admission: No
--- NOTE | 2018-08-11 11:15 | PT.IPTN ---
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, lumbar region without neurogenic claudication (07/31/18) Abdominal distension (gaseous) (07/31/18) Personal history of other medical treatment (07/31/18) Arthrodesis status (07/31/18) Surgery Performed Operation Date: 07/31/18 07:45 <No data on this case meets the specified criteria> Operation Date: 07/31/18 07:45 Actual Procedures p L2-3,L3-4 TLIF - L4-5,L5-S1 HWR & exploration of fusion, L2-S1 PSF w/Instru - Alyse Gallo MD Physical Therapy Treatment Note M2 PT-IP Current Condition Start: 07/31/18 15:46 Freq: NEEDED Status: Active Protocol: Document 08/01/18 13:20 AB (Rec: 08/01/18 15:56 AB [id number]) Physical Therapy Current Condition Current Condition Evaluation Date 08/01/18 Treatment Diagnosis s/p L2-4 TLIF, difficulty in walking Onset Date 07/31/18 Precautions Lumbar Precautions Log Roll No Twisting Limit Bending Lifting Restriction of 10 lbs Gait Belt above Incisional Area M3 PT-IP Subjective Start: 07/31/18 15:46 Freq: NEEDED Status: Active Protocol: Document 08/11/18 10:25 CLB (Rec: 08/11/18 11:15 CLB [id number]) Subjective Physical Therapy Visit Type Type Treatment Note Visit Start Time 10:25 Visit Stop Time 10:48 Total Visit Minutes 23 Number of EXIT BOOTH AGENT Visits 2 Physical Therapy Visit Comments Patient Comments Pt wanting to ambulate. Therapy Pain Assessment Pain When Pain Assessed During Mobility Pain Present Pain Present Pain Reported M4 PT-IP Mobility and Gait Start: 07/31/18 15:46 Freq: NEEDED Status: Active Protocol: Document 08/11/18 10:25 CLB (Rec: 08/11/18 11:15 CLB [id number]) PT-Bed Mobility Assessment Rolling Type of Rolling Log Rolling Level of Assist Standby Assistance Supine to Sit Supine to Sit Standby Assistance Sit to Supine Sit to Supine Minimal Assistance Scooting Scooting to Edge of Bed Independent Scooting Up and Down in Bed Independent PT-Transfer Assessment Sit to and From Stand Sit to and from Stand Independent Equipment Transfer Assistive Device Gait Belt Front Wheeled Walker Transfers Transfer Destination Bed Transfer Technique Stand Step Pivot Transfer Ability Level of Assist Standby Assistance Comments Mobility Comments Pt required Min A with LEs with sit-supine. Gait Assessment Gait Gait Assistance Required: Standby Assistance Distance (Feet) 850 Able to Maintain Weight Bearing Status Yes During Gait Assistive Devices Assistive Device None Gait Belt Front Wheeled Walker Gait Deviations General Gait Pattern Decreased Stride Length Decreased Feet Clearance Comments Gait Comments Pt with increased pain in lumbar area with ambulation w/ o AD. M5 PT-IP Objective Assessments Start: 07/31/18 15:46 Freq: NEEDED Status: Active Protocol: Document 08/01/18 13:20 AB (Rec: 08/01/18 15:56 AB [id number]) Orientation Orientation/Cognition Level of Alertness Alert Orientation Name Age Birthday Month Date Year Day of Week Place Situation Gross Range of Motion Lower Extremity ROM Assessment Within Functional Limits Strength Lower Extremity Strength Assessment Left Impaired Hip 3+/5 Knee 3+/5 Sensation Assessment Sensation Gross Sensation WNL M6 PT-IP Treatment Start: 07/31/18 15:46 Freq: NEEDED Status: Active Protocol: Document 08/04/18 10:30 CLB (Rec: 08/04/18 13:07 CLB [id number]) Physical Therapy Treatment Education Education Provided Precautions M7 PT-IP Assessment and Plan Start: 07/31/18 15:46 Freq: NEEDED Status: Active Protocol: Document 08/11/18 10:25 CLB (Rec: 08/11/18 11:15 CLB [id number]) PT Summary Assessment and Plan Summary Impairments Pain ROM Strength Bed Mobility Transfers Gait Activity Tolerance Progress Towards Goals Progressing Toward Goals Assessment Summary Pt is SBA with bed mobility and is able to assist pt appropriately. Pt ambulated ~ 850ft with mild fatigue. Pt has good safety awareness and had no LOB with gait with or without AD. Pt seems able to d /c home with assist when medically stable. Goals Bed Mobility Goal Independent Transfer Goal Independent Gait Goal Independent Gait Distance 500 Other Goals amb without AD stair climbing 4 steps with 1/ no rails Frequency of Treatment Frequency Of Treatment Once a Day Treatment Plan Other Recommendations and Next Treatment amb without AD as jag Focus stair climbing as jag Recommendations To Nursing Amount of Assist Needed Standby Assistance 1 Person Assist Discharge Recommendations PT Discharge Recommendations Home with Assistance
--- NOTE | 2018-08-11 13:03 | PM.PN.1 ---
Subjective Date Patient Seen: 08/11/18 Time Patient Seen: 12:03 Interval history: Patient feeling very well today. Having multiple bowel movements and passing gas. Feels like he could tolerate real food. He right now is on a full liquid diet. Exam Vital Signs (past 8 hours): - 08/11/18 08:00 08/11/18 12:00 Temperature 98.7 F 99 F Pulse Rate 81 78 Respiratory Rate 15 16 Blood Pressure 140/62 131/61 Pulse Oximetry 90 L 92 Fraction of Inspired Oxygen 24 Oxygen Delivery Method Room Air Oxygen Flow Rate 0 Narrative Exam Narrative: Sitting upright eating lunch. His abdomen is much flatter soft reducible hernias no tenderness. Objective Labs Result Diagrams: 08/11/18 06:00 08/11/18 06:00 Labs: Laboratory Results - last 24 hr 08/10/18 08/11/18 08/11/18 15:35 06:00 06:00 WBC 15.8 H RBC 3.11 L Hgb 9.0 L Hct 26.6 L MCV 85.3 MCH 28.9 MCHC 33.9 RDW 15.8 H Plt Count 337 Neut % (Auto) 70.0 Lymph % (Auto) 10.2 L [place] % (Auto) 14.9 H Eos % (Auto) 3.8 Baso % (Auto) 1.1 Neut # (Auto) 85002 H Lymph # (Auto) 1600 [place] # (Auto) 2300 H Eos # (Auto) 600 H Baso # (Auto) 200 H RBC Morphology Not Reportable Anisocytosis 1+ H Target Cells 1+ H Sodium 137 Potassium 4.0 Chloride 104 Carbon Dioxide 28 BUN 21 H Creatinine 0.90 Estimated GFR > 60.0 BUN/Creatinine Ratio 23.3 H Glucose 97 Calcium 8.0 L Total Bilirubin 1.0 AST 78 H ALT 128 H Alkaline Phosphatase 229 H Total Protein 5.9 L Albumin 2.8 L Globulin 3.1 Albumin/Globulin Ratio 0.9 L Blood Type O Positive Antibody Screen Negative Crossmatch See Detail Assessment & Plan Plan: Assessment/Plan Narrative: Talked with the pharmacist. She recommended at least 2 more days of oral antibiotic for his UTI. Could be switched to p.o. pain medicine but that should be done by the orthopedic department. We will continue the Reglan as a p.o. medication and he should be discharged on it. We will sign off at this time. Quality VTE Deep Vein Thrombosis/Pulmonary Embolism Present on Admission: No
[2018-08-11] MEDS: OXYCODONE IR 5 MG TABLET PO ×2 (13:29→20:57)
--- NOTE | 2018-08-11 13:42 | PM.PN.1 ---
Subjective Date Patient Seen: 08/11/18 Interval history: Patient postop lumbar surgery and subsequently developed ileus and also UTI due to chronic Andres. He was transfused 2 units PRBC with considerable improvement in his mentation, fatigue, strength and general well-being. Appetite improving and feels ready to advance diet. He did have another bowel movement today. As Dr. Malcolm noted, he should continue on the metoclopramide by mouth at least temporarily until he is off of opioid pain medications. Exam Vital Signs (past 8 hours): - 08/11/18 08:00 08/11/18 12:00 Temperature 98.7 F 99 F Pulse Rate 81 78 Respiratory Rate 15 16 Blood Pressure 140/62 131/61 Pulse Oximetry 90 L 92 Fraction of Inspired Oxygen 24 Oxygen Delivery Method Room Air Oxygen Flow Rate 0 Narrative Exam Narrative: GENERAL: Alert, pleasant, conversant with much improved affect and orientation CHEST: Clear to auscultation bilaterally. CARDIAC: Regular rate and rhythm. ABDOMEN: Bowel sounds present, Nondistended, soft, nontender EXTREMITIES: no edema. NEUROLOGICAL: Nonfocal SKIN: Warm, dry, no petechiae, no rash Objective Labs Result Diagrams: 08/11/18 06:00 08/11/18 06:00 Labs: Laboratory Results - last 24 hr 08/10/18 08/11/18 08/11/18 15:35 06:00 06:00 WBC 15.8 H RBC 3.11 L Hgb 9.0 L Hct 26.6 L MCV 85.3 MCH 28.9 MCHC 33.9 RDW 15.8 H Plt Count 337 Neut % (Auto) 70.0 Lymph % (Auto) 10.2 L [place] % (Auto) 14.9 H Eos % (Auto) 3.8 Baso % (Auto) 1.1 Neut # (Auto) 34939 H Lymph # (Auto) 1600 [place] # (Auto) 2300 H Eos # (Auto) 600 H Baso # (Auto) 200 H RBC Morphology Not Reportable Anisocytosis 1+ H Target Cells 1+ H Sodium 137 Potassium 4.0 Chloride 104 Carbon Dioxide 28 BUN 21 H Creatinine 0.90 Estimated GFR > 60.0 BUN/Creatinine Ratio 23.3 H Glucose 97 Calcium 8.0 L Total Bilirubin 1.0 AST 78 H ALT 128 H Alkaline Phosphatase 229 H Total Protein 5.9 L Albumin 2.8 L Globulin 3.1 Albumin/Globulin Ratio 0.9 L Blood Type O Positive Antibody Screen Negative Crossmatch See Detail Assessment & Plan Plan: Assessment/Plan Narrative: Edgardo Cotter is an 83-year-old male with a past medical history significant for CAD, hypertension, hyperlipidemia, anxiety, depression, multiple abdominal surgeries including, previous lysis of adhesions, who is now status post extensive lumbar spinal surgery in which we were consulted for postop ileus versus SBO and medical management of multiple comorbidities. Ileus basically resolved and UTI is being adequately treated. Patient can likely be discharged tomorrow, Sunday. 1. Acute post-operative Ileus, not present on admission. Resolved. -Chest/Abdominal series demonstrated mild to moderate dilation of fluid-filled small bowel loops consistent with partial small bowel obstruction. Moderate stool is present suggestive constipation. Repeat abdominal series demonstrated post-op ileus that is improving compared to 08/02/18. -Small-bowel follow-through demonstrated normal contrast transit time with no definite pathologically dilated bowel or transition point and moderate stool. Patient has had several bowel movements since study. -general surgery consulted and helpful with management of ileus -per Dr. Malcolm, continue metoclopramide orally until patient is off of opioid pain relievers -advanced to general diet -removed PICC and cath tip sent for culture as area around it seemed to be saturated but not red 2. Acute E. coli urinary tract infection, secondary to chronic indwelling catheter, not present on admission. Active. -Leukocytosis was trending up but now improving -Urine culture grew pansensitive E coli. -Changed Andres catheter 08/08. -continue Levaquin by mouth through 08/12/2018 to complete 1 week course of antibiotic therapy 3. Acute kidney injury secondary to dehydration and prerenal azotemia, not present on admission. Resolved. -Hep-Lock IV 4. Acute laryngospasm, also hiccups, not present on admission. Resolving. -Reactive laryngospasm and hiccups due to NG tube causing diaphragmatic irritation which has now been removed. -continue baclofen 10 mg every 6 hours as needed for hiccups and laryngospasm. 5. Acute extensive lumbar spinal surgery, not present on admission. Active. -Defer to orthopedic notes for postoperative observation. 6. Acute transaminitis, secondary to parenteral nutrition, not present on admission. Resolving. 7. Depression, chronic, present on admission. Stable. -Continued with oral venlafaxine 8. Anxiety, chronic, present on admission. Stable. -He has a longstanding anxiety with benzodiazapine dependency. He was taking lorazepam 0.5 mg in a.m. and 1 mg at night as a routine. -currently on lorazepam 0.5 mg twice daily scheduled. 9. CAD, chronic, present on admission. Stable. -resumed aspirin 81 mg q.d., atorvastatin 40 mg HS. 10. Hypertension, chronic, present on admission. Stable. -have not resumed losartan and HCTZ since BP running normal. -likely can safely resume BP meds on discharge 11. Acute encephalopathy, toxic/metabolic, likely due to anemia and ileus. Resolving. -patient much better oriented and less anxious now 12. Postop anemia, likely blood loss and acute stress -worsening anemia, transfuse 2 units PRBC on 08/10/2018, with appropriate increase in hemoglobin and hematocrit 13. Acute leukocytosis, improving -likely due to combination ileus and UTI Thank you for allowing us to participate in this patients care. Patient appears like he might discharge tomorrow, Sunday. Please coordinate with the hospitalist on duty on discharging patient. Quality VTE Deep Vein Thrombosis/Pulmonary Embolism Present on Admission: No
--- NOTE | 2018-08-11 13:57 | P.PN_ITS ---
Subjective Date Patient Seen: 08/11/18 Interval history: Patient postop lumbar surgery and subsequently developed ileus and also UTI due to chronic Andres. He was transfused 2 units PRBC with considerable improvement in his mentation, fatigue, strength and general well- being. Appetite improving and feels ready to advance diet. He did have another bowel movement today. As Dr. Malcolm noted, he should continue on the metoclopramide by mouth at least temporarily until he is off of opioid pain medications. Exam Vital Signs (past 8 hours): - 08/11/18 08:00 08/11/18 12:00 Temperature 98.7 F 99 F Pulse Rate 81 78 Respiratory Rate 15 16 Blood Pressure 140/62 131/61 Pulse Oximetry 90 L 92 Fraction of Inspired Oxygen 24 Oxygen Delivery Method Room Air Oxygen Flow Rate 0 Narrative Exam Narrative: GENERAL: Alert, pleasant, conversant with much improved affect and orientation CHEST: Clear to auscultation bilaterally. CARDIAC: Regular rate and rhythm. ABDOMEN: Bowel sounds present, Nondistended, soft, nontender EXTREMITIES: no edema. NEUROLOGICAL: Nonfocal SKIN: Warm, dry, no petechiae, no rash Objective Labs Result Diagrams: 08/11/18 06:00 08/11/18 06:00 Labs: Laboratory Results - last 24 hr 08/10/18 08/11/18 08/11/18 15:35 06:00 06:00 WBC 15.8 H RBC 3.11 L Hgb 9.0 L Hct 26.6 L MCV 85.3 MCH 28.9 MCHC 33.9 RDW 15.8 H Plt Count 337 Neut % (Auto) 70.0 Lymph % (Auto) 10.2 L [place] % (Auto) 14.9 H Eos % (Auto) 3.8 Baso % (Auto) 1.1 Neut # (Auto) 66200 H Lymph # (Auto) 1600 [place] # (Auto) 2300 H Eos # (Auto) 600 H Baso # (Auto) 200 H RBC Morphology Not Reportable Anisocytosis 1+ H Target Cells 1+ H Sodium 137 Potassium 4.0 Chloride 104 Carbon Dioxide 28 BUN 21 H Creatinine 0.90 Estimated GFR > 60.0 BUN/Creatinine Ratio 23.3 H Glucose 97 Calcium 8.0 L Total Bilirubin 1.0 AST 78 H ALT 128 H Alkaline Phosphatase 229 H Total Protein 5.9 L Albumin 2.8 L Globulin 3.1 Albumin/Globulin Ratio 0.9 L Blood Type O Positive Antibody Screen Negative Crossmatch See Detail Assessment & Plan Plan: Assessment/Plan Narrative: Edgardo Cotter is an 83-year-old male with a past medical history significant for CAD, hypertension, hyperlipidemia, anxiety, depression, multiple abdominal surgeries including, previous lysis of adhesions, who is now status post extensive lumbar spinal surgery in which we were consulted for postop ileus versus SBO and medical management of multiple comorbidities. Ileus basically resolved and UTI is being adequately treated. Patient can likely be discharged tomorrow, Sunday. 1. Acute post-operative Ileus, not present on admission. Resolved. -Chest/Abdominal series demonstrated mild to moderate dilation of fluid- filled small bowel loops consistent with partial small bowel obstruction. Moderate stool is present suggestive constipation. Repeat abdominal series demonstrated post-op ileus that is improving compared to 08/02/18. -Small-bowel follow-through demonstrated normal contrast transit time with no definite pathologically dilated bowel or transition point and moderate stool. Patient has had several bowel movements since study. -general surgery consulted and helpful with management of ileus -per Dr. Malcolm, continue metoclopramide orally until patient is off of opioid pain relievers -advanced to general diet -removed PICC and cath tip sent for culture as area around it seemed to be saturated but not red 2. Acute E. coli urinary tract infection, secondary to chronic indwelling catheter, not present on admission. Active. -Leukocytosis was trending up but now improving -Urine culture grew pansensitive E coli. -Changed Andres catheter 08/08. -continue Levaquin by mouth through 08/12/2018 to complete 1 week course of antibiotic therapy 3. Acute kidney injury secondary to dehydration and prerenal azotemia, not present on admission. Resolved. -Hep-Lock IV 4. Acute laryngospasm, also hiccups, not present on admission. Resolving. -Reactive laryngospasm and hiccups due to NG tube causing diaphragmatic irritation which has now been removed. -continue baclofen 10 mg every 6 hours as needed for hiccups and laryngospasm. 5. Acute extensive lumbar spinal surgery, not present on admission. Active. -Defer to orthopedic notes for postoperative observation. 6. Acute transaminitis, secondary to parenteral nutrition, not present on admission. Resolving. 7. Depression, chronic, present on admission. Stable. -Continued with oral venlafaxine 8. Anxiety, chronic, present on admission. Stable. -He has a longstanding anxiety with benzodiazapine dependency. He was taking lorazepam 0.5 mg in a.m. and 1 mg at night as a routine. -currently on lorazepam 0.5 mg twice daily scheduled. 9. CAD, chronic, present on admission. Stable. -resumed aspirin 81 mg q.d., atorvastatin 40 mg HS. 10. Hypertension, chronic, present on admission. Stable. -have not resumed losartan and HCTZ since BP running normal. -likely can safely resume BP meds on discharge 11. Acute encephalopathy, toxic/metabolic, likely due to anemia and ileus. Resolving. -patient much better oriented and less anxious now 12. Postop anemia, likely blood loss and acute stress -worsening anemia, transfuse 2 units PRBC on 08/10/2018, with appropriate increase in hemoglobin and hematocrit 13. Acute leukocytosis, improving -likely due to combination ileus and UTI Thank you for allowing us to participate in this patients care. Patient appears like he might discharge tomorrow, Sunday. Please coordinate with the hospitalist on duty on discharging patient. Quality VTE Deep Vein Thrombosis/Pulmonary Embolism Present on Admission: No
[2018-08-11] MEDS: levoFLOXacin 500 MG TABLET PO (14:50)
--- NOTE | 2018-08-11 14:51 | PC.NURSE ---
Pts Picc line d/cd per as it had some moisture under the dressing. Pulled and cath tip intact. New IV started to L. AC. Pts LOG SNAKER also d/cd and his IVF. He has been tolerating po well, here most of the day and just left.
[2018-08-11] MEDS: METOCLOPRAMIDE HCL 10 MG TABLET PO ×2 (16:53→20:58)
[2018-08-11] MEDS: LORazepam 0.5 MG TABLET PO (20:57)
[2018-08-11] MEDS: ATORVASTATIN 20 MG TABLET 40 MG PO (20:57)
--- NOTE | 2018-08-11 22:12 | PC.NURSE ---
Nurse note: Edgardo reports had better night tonight, good pink color to cheeks, appears he has more energy tonight. Ambulated in hallway x 2, transfered to and had BM. Passing flatus. Tolerating general diet, although he reports not that hungry. At 2100 when going to flush IV to LAC, I found cannula completely out of arm and dangling, held on by mesh sleeve. AC site with no bleeding, drsg still intact. Drsg & tape removed, site cleaned w/alcohol swab. Due to his medication change to all PO's, stable vital signs & probable DC in AM, I will leave IV out at this point. Reported lower back pain 01/29, medicated with 1 tab oxycodone, assisted him to reposition in bed, he refused to turn to either side saying that is never good. Since then patient has been dozing quietly. He is Ox3 and using call button appropriately, bed alarm active for safety.
[2018-08-11] MEDS: ACETAMINOPHEN 325 MG TABLET 650 MG PO (23:36)
[2018-08-12] MEDS: OXYCODONE IR 5 MG TABLET PO ×4 (00:55→14:04)
[2018-08-12 04:30] VITALS: BP 139/73; PULSE 70; RESP 18; TEMP 36.5; O2SAT 94
--- NOTE | 2018-08-12 05:25 | PC.NURSE ---
Pt is A and O x 4 with some confusion re date and time. He ambulated around unit x 3, FWW + SBA x 1. He requested one 5 mg oxycodone at 0100 and slept the entire rest of shift. Urine output clear yellow, qs. + BTs, LS clear. S1, S2. Looking forward to discharge.
[2018-08-12] MEDS: PANTOPRAZOLE 40 MG TABLET PO (06:05)
[2018-08-12 08:00] VITALS: BP 139/70; PULSE 67; RESP 18; TEMP 36.6; O2SAT 95
[2018-08-12] MEDS: METOCLOPRAMIDE HCL 10 MG TABLET PO ×2 (08:27→14:03)
[2018-08-12] MEDS: VENLAFAXINE 37.5 MG TABLET PO (08:27)
[2018-08-12] MEDS: ASPIRIN EC 81 MG TABLET PO (08:27)
[2018-08-12] MEDS: BACLOFEN 10 MG TABLET PO (08:28)
--- NOTE | 2018-08-12 09:03 | PC.NURSE ---
Addendum entered by Elena Reyes R.N. 08/12/18 14:26: Discharge teaching reviewed at length. No questions from Siddharth, or Pt. Wheeled to private vehicle. Rx's to [facility] per request. Original Note: Addendum entered by Elena Reyes R.N. 08/12/18 13:29: in, Dr Perez at bedside with lengthy education and POC for home. They both feel like they are prepared to d/c home with enough assistance. Orders written. Original Note: Am shift Pt is a/o x2, forgetful at times, but making jokes and conversing with staff. Remembers this RN from shift a few days ago. Dressing to back is CDI. Pain reported and medicated for. Reporting transient hiccups. Pt is eager to work on d/c home today.
--- NOTE | 2018-08-12 09:31 | PT.IPTN ---
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, lumbar region without neurogenic claudication (07/31/18) Abdominal distension (gaseous) (07/31/18) Personal history of other medical treatment (07/31/18) Arthrodesis status (07/31/18) Surgery Performed Operation Date: 07/31/18 07:45 <No data on this case meets the specified criteria> Operation Date: 07/31/18 07:45 Actual Procedures p L2-3,L3-4 TLIF - L4-5,L5-S1 HWR & exploration of fusion, L2-S1 PSF w/Instru - Alyse Gallo MD Physical Therapy Treatment Note M2 PT-IP Current Condition Start: 07/31/18 15:46 Freq: NEEDED Status: Active Protocol: Document 08/01/18 13:20 AB (Rec: 08/01/18 15:56 AB [id number]) Physical Therapy Current Condition Current Condition Evaluation Date 08/01/18 Treatment Diagnosis s/p L2-4 TLIF, difficulty in walking Onset Date 07/31/18 Precautions Lumbar Precautions Log Roll No Twisting Limit Bending Lifting Restriction of 10 lbs Gait Belt above Incisional Area M3 PT-IP Subjective Start: 07/31/18 15:46 Freq: NEEDED Status: Active Protocol: Document 08/12/18 09:30 CLB (Rec: 08/12/18 09:30 CLB [id number]) Subjective Physical Therapy Visit Type Type Patient Refusal Notes Pt refused tx. Will return in afternoon to follow up with pt .
--- NOTE | 2018-08-12 09:31 | PM.PNPO.1 ---
Subjective Date Patient Seen: 08/12/18 Time Patient Seen: 09:31 Interval history: Pain mild. No fever chills. No nausea vomiting. Patient is urinating well. Last bowel movement was last night. Has been walking the halls with physical therapy several times daily. Patient's is home to the system. Otherwise without complaints. Exam Vital Signs (past 8 hours): - 08/12/18 04:30 08/12/18 08:00 Temperature 97.7 F 97.8 F Pulse Rate 70 67 Respiratory Rate 18 18 Blood Pressure 139/73 139/70 Pulse Oximetry 94 95 Fraction of Inspired Oxygen 24 Oxygen Delivery Method Room Air Oxygen Flow Rate 0 Narrative Exam Narrative: Pleasant 83-year-old male resting comfortably in bed in no apparent distress. Lumbar dressing is clean, dry and intact. Sensation grossly intact to light touch bilateral lower extremities. Motor functions intact bilateral lower extremities. Both legs are warm and dry. Objective Labs Result Diagrams: 08/11/18 06:00 08/11/18 06:00 Assessment & Plan Post-op Postoperative Procedures Operation Date: 07/31/18 07:45 <No data on this case meets the specified criteria> Operation Date: 07/31/18 07:45 Actual Procedures Side Surgeon p L2-3,L3-4 TLIF - L4-5,L5-S1 HWR & exploration of fusion, L2-S1 PSF w/Instru Alyse Gallo MD Postop day 12. Status post TLIF by Dr. Gallo. Limit bending, lifting, twisting. Mobilized with physical therapy. Hospitalist managing several medical issues postop. I have reviewed the note from August 11, [address] Eason. Patient can be discharged home when medically stable per hospitalist. Quality VTE Deep Vein Thrombosis/Pulmonary Embolism Present on Admission: No
--- NOTE | 2018-08-12 12:54 | PT.IPTN ---
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, lumbar region without neurogenic claudication (07/31/18) Abdominal distension (gaseous) (07/31/18) Personal history of other medical treatment (07/31/18) Arthrodesis status (07/31/18) Surgery Performed Operation Date: 07/31/18 07:45 <No data on this case meets the specified criteria> Operation Date: 07/31/18 07:45 Actual Procedures p L2-3,L3-4 TLIF - L4-5,L5-S1 HWR & exploration of fusion, L2-S1 PSF w/Instru - Alyse Gallo MD Physical Therapy Treatment Note Patient Comments Pt is discharging today and has no additional acute PT needs. Will sign off.
[2018-08-12] MEDS: levoFLOXacin 500 MG TABLET PO (14:03)
--- NOTE | 2018-08-13 16:17 | P.DS_ITS ---
History of Present Illness Date Patient Seen: 08/12/18 Chief complaint: Postop Management of medical complications Narrative: Mr Cotter is a pleasant 83 year old man with a history of multiple abdominal surgeries including previous lysis of adhesions who is post op day 3, hospital day 4, following lumbar fusion surgery but has not had a bowel movement since the morning of his surgery 4 days ago. He states that his abdomen is distended, tender, with diffuse abdominal, non radiating 6/10 pain. The pain is constant and worsened with palpation and mildly alleviated with position and pain medications. He states that he feels backed up. He usually has 2 to 3 loose stools per day, but has not had a BM since his surgery. To help relieve his discomfort, an NG tube was placed yesterday and Mr. Cotter states that the night nurse had him swallow two pills last night despite the placement of the NG tube. He says that the pills had a hard time passing down to his stomach and one pill got stuck by my eustachian tube. He now has hiccoughs and a scratchy, uncomfortable throat. Staff report that he declined to have some of his medicines crushed. Evidently there was no order to hold his PO medicines after NGT placement. He was seen by General Surgery yesterday and is being followed by them. His WBC count has dropped from 25 to 21.5 thousand. [facility] Discharge Providers Date of admission: 07/31/18 05:48 Primary care physician: Nataliya Mejia Consults: 07/31/18 14:03 Consult to Occupational Therapy Evaluate & Treat Comment: Physician Instructions: Evaluate and treat Consult to Physical Therapy Evaluate & Treat Comment: Physician Instructions: Evaluate and Treat 08/02/18 14:20 Consult to Physical Therapy Evaluate & Treat Comment: FWW for home use Physician Instructions: Evaluate and Treat 08/04/18 12:33 Consult to PICC Line RN Routine Comment: Discharge provider: Silvia Perez MD Discharge Date: 08/12/18 Summary Discharge Diagnosis: Postop ileus, resolved, not present on admission Urinary tract infection, secondary to Berme[place] catheter resolving, not present on admission Urinary tract infection, secondary to E coli resolving Lumbar steroid dri not present on admission Acute kidney injury, resolved Acute laryngospasm, not present on admission, resolved Acute transaminitis this, resolved not present on admission Acute metabolic encephalopathy, resolved, not present on admission Postoperative, blood-loss anemia, resolved Hypertension, chronic Hyperlipidemia, chronic GERD, chronic Depression, chronic Anxiety, chronic Coronary artery disease, chronic Hospital Course: Patient is an 83-year-old male with an extensive past medical history who 3-4 days postoperatively following a lumbar fusion developed a postoperative ileus. He has an extensive history of surgery in the past. He required NG tube placement NPO IV fluids for his ileus. It took quite some time to resolve. The patient also developed acute kidney injury. He developed acute laryngospasm. He also developed acute transaminitis and metabolic encephalopathy. The patient was found to have a urinary tract infection. He has a chronic indwelling Bermeo due to prostate cancer. His urine was growing E coli. He was treated with antibiotics for this. In addition he had other multiple medical problems which were treated including GERD, hypertension, depression, anxiety, hypertension. Despite his extensive course the patient made slow but steady progress. His ileus gradually resolved. His lumbar spine wound had treasure in place and was healing nicely. His diet was slowly advanced. He was able to ambulate. He had complete improvement of his delirium /encephalopathy. And he was deemed appropriate for discharge home. Exam Vital Signs (past 8 hours): - 08/12/18 08:00 Temperature 97.8 F Pulse Rate 67 Respiratory Rate 18 Blood Pressure 139/70 Pulse Oximetry 95 Fraction of Inspired Oxygen 24 Oxygen Delivery Method Room Air Oxygen Flow Rate 0 Narrative Exam Narrative: Pleasant gentleman In no acute distress Lung: Clear to auscultation Cardiac exam: Regular rate rhythm normal S1 and S2 Abdomen: Soft nontender nondistended without hepatosplenomegaly Extremities: No edema Back: Surgical site clean and dry, treasure in place, no erythema or warmth. Objective Labs Result Diagrams: 08/11/18 06:00 08/11/18 06:00 Discharge Plan Discharge Plan Patient Disposition: Home Discharge Med Rec/Prescriptions Prescriptions: Miguel gaming .ROUTE .MEDSUPPLY Qty: 1 RF: 0 pantoprazole 40 mg Tablet,Delayed Release (Dr/Ec) 40 mg PO 0700 Qty: 30 RF: 0 levofloxacin 500 mg Tablet 500 mg PO 1400 Qty: 7 RF: 0 metoclopramide HCl 10 mg Tablet 10 mg PO ACHS Qty: 20 RF: 0 oxycodone 5 mg Tablet 5 mg PO Q4HR PRN (Reason: Pain, Moderate (4-6)) Qty: 20 RF: 0 Continue losartan 50 mg Tablet 50 mg PO BID RF: 0 ascorbic acid (vitamin C) [Vitamin C] 1,000 mg Tablet 1,000 mg PO BID RF: 0 venlafaxine 75 mg Tablet 37.5 mg PO BID RF: 0 aspirin [Aspir-81] 81 mg Tablet,Delayed Release (Dr/Ec) 81 mg PO QPM RF: 0 oxycodone 5 mg Capsule 5 mg PO Q4-6H PRN (Reason: pain) RF: 0 metoprolol tartrate 50 mg Tablet 50 mg PO BID RF: 0 lorazepam 1 mg Tablet 1 mg PO Q8H PRN (Reason: anxiety, sleep) RF: 0 colchicine 0.6 mg Tablet 0.6 mg PO BID PRN (Reason: Gout) RF: 0 ketoconazole 2 % Cream 1 applic Topical BID PRN (Reason: fungus around nose) RF: 0 metoclopramide HCl [Reglan] 10 mg Tablet 10 mg PO DAILY PRN (Reason: Nausea) RF: 0 ferrous gluconate 324 mg (38 mg iron) Tablet 324 mg PO BID RF: 0 hydrochlorothiazide 12.5 mg Tablet 12.5 mg PO DAILY RF: 0 omeprazole 20 mg Tablet,Delayed Release (Dr/Ec) 20 mg PO BID RF: 0 naproxen sodium 220 mg Capsule 220 mg PO DAILY PRN (Reason: pain) RF: 0 atorvastatin 40 mg Tablet 40 mg PO BEDTIME RF: 0 Follow up/Referrals: Nataliya Mejia [Primary Care Provider] - Provider Discharge Instructions Diet: Low-sodium and Low-cholesterol Activity: Limit bending, lifting, twisting Other treatments: Continue indwelling bermeo catheter Skin/Wound/Dressing Care Skin care: Dressing is water resistant, but not water proof. Report to your healthcare provider any signs of infection, such as:: chills, fever, night sweats, increased pain, unusual drainage and unusual redness Dressing: dressing change daily. Follow up with Ortho, Dr. Moore next Sunday for staple removal Other wound treatment: No swimming, no soaking, no hot tubs until cleared by Ortho. Visit Report/Discharge Packet Instructions: DI for Ileus, DI for Transforaminal Lumbar Interbody Fusion Visit Report Forms: Stroke Signs & Symptoms Discharge Data Primary Care Provider: Nataliya Mejia Attending Provider: Alyse Gallo Admit Date/Time: 07/31/18 05:48 Discharges patient from system. Discharge Date/Time: 08/12/18 14:27 Quality VTE Deep Vein Thrombosis/Pulmonary Embolism Present on Admission: No
== END 2018-08-12 14:27 | disposition home or self-care (01) | DRG 453 ==
PROVIDERS: Anesthesiology; Family Medicine; Internal Medicine; Orthopaedic Surgery; Physician Assistant; Specialist; Surgery; Admitting Provider Orthopaedic Surgery Orthopaedic Surgery of the Spine; PCP Nurse Practitioner Family; Visit Provider Orthopaedic Surgery Orthopaedic Surgery of the Spine
DX: M48.062 Spinal stenosis, lumbar region with neurogenic claudication (principal); G93.41 Metabolic encephalopathy; T83.511A Infection and inflammatory reaction due to indwelling urethral catheter, initial encounter; G97.41 Accidental puncture or laceration of dura during a procedure; K91.89 Other postprocedural complications and disorders of digestive system; D62 Acute posthemorrhagic anemia; M96.0 Pseudarthrosis after fusion or arthrodesis; N17.9 Acute kidney failure, unspecified; M47.26 Other spondylosis with radiculopathy, lumbar region; N39.498 Other specified urinary incontinence; J38.5 Laryngeal spasm; I10 Essential (primary) hypertension; E78.5 Hyperlipidemia, unspecified; F32.9 Major depressive disorder, single episode, unspecified; K21.9 Gastro-esophageal reflux disease without esophagitis; I25.10 Atherosclerotic heart disease of native coronary artery without angina pectoris; Z87.891 Personal history of nicotine dependence; F41.9 Anxiety disorder, unspecified; B96.20 Unspecified Escherichia coli [E. coli] as the cause of diseases classified elsewhere
CPT/HCPCS: 36415; 36430; 71045; 72100; 74022; 74250; 76000; 80048; 80053; 81001; 82248; 82962; 83735; 84145; 85014; 85018; 85025; 86850; 86900; 86901; 87040; 87077; 87086; 87186; 94760; 97116; 97161; 97165; 97530; 97535; C1776; P9016; B4189; C9113; C9290; J0131; J0690; J1100; J1956; J2060; J2250; J2270; J2274; J2354; J2405; J2704; J2765; J3010

== ENCOUNTER → 2020-02-19 16:52 | Outpatient (CLI) | payer MEDICARE, OTHER, SELFPAY ==
[2020-02-19 16:10] VITALS: BMI 27.8
[2020-02-19 18:03] LABS: COVID19 -Nasal RAPID Negative (Negative)
== END ==
PROVIDERS: PCP Nurse Practitioner Family; Visit Provider Physician Assistant
DX: Z11.59 Encounter for screening for other viral diseases (principal)
CPT/HCPCS: 87635

== ENCOUNTER 2020-02-20 09:39 | Day surgery (SDC) | payer MEDICARE, OTHER, SELFPAY ==
[2020-02-19 16:10] VITALS: BMI 27.8
[2020-02-20 10:19] VITALS: BP 141/68; PULSE 63; RESP 16; TEMP 36.6; O2SAT 95; BMI 25.8
[2020-02-20] MEDS: LACTATED RINGERS 500 ML 25 ML IV (10:27)
--- NOTE | 2020-02-20 10:34 | PM.PREOP ---
Pre-operative Note COVID-19 COVID-19 status: Negative Result date/Date tested (Pos, Neg/Pending): 02/19/20 Interval Note History & Physical reviewed/Exam performed by Physician: Yes Changes to H&P: No
[2020-02-20] MEDS: VANCOMYCIN 1,000 MG/200 ML PIGGYBACK 200 MG IV (10:44)
[2020-02-20] MEDS: GENTAMICIN 160 MG in SODIUM CHLORIDE 0.9% 100 ML 104 ML IV (11:20)
--- NOTE | 2020-02-20 11:40 | SUR.OPER ---
Lithotomy on padded OR bed, head on pillow, arms secured on padded arm boards at <90 degrees abduction. Legs secured in padded yellow fins stirrups.
[2020-02-20] MEDS: ACETAMINOPHEN IV 1,000 MG/100 ML VIAL 400 MG IV (11:48)
[2020-02-20] MEDS: BUPIVACAINE LIPOSOME 266 MG/20 ML VIAL INJ (11:49)
[2020-02-20] MEDS: BELLADONNA/OPIUM SUPPOSITORIES 1 EACH PR (12:33)
--- NOTE | 2020-02-20 12:36 | P.OP_ITS ---
Operative Date/Time/Diagnoses Date of procedure: 02/20/20 Time of procedure: 12:36 Pre-op diagnosis: 1. Urinary retention 2. Bladder neck contracture 2 Post-op diagnosis: same Procedure & Clinicians Procedure: 1. Suprapubic cystostomy Same procedure as scheduled: Yes Indications: 1. Urinary retention. 2. Bladder neck contracture. Anesthesia Type: General and Local (1.33% Exparel) Operative Notes Findings: Urethra-normal External sphincter-gaping and fixed Bladder - radiation changes and small functional volume. No stones or suspicious lesions seen. Closure Type: primary Specimen(s): none sent Applied: catheter (Twenty [place] Andres catheter) Estimated Blood Loss (mL): 3 Blood products transfused: none Tourniquet time (min): 0 Procedure in detail: The patient was positioned supine and was administered general anesthesia. He was then repositioned semi lithotomy and the abdomen genitalia and groin were then prepped and draped in sterile fashion. The 22 [place] panendoscope was then passed lower urinary tract with findings as described above. The bladder was then filled to capacity. Because of lack of distensibility of the bladder and multiple previous laparotomies with the incision extending to the level of the superior margin of the pubic symphysis, an open approach was chosen. An approximately 4 cm incision was made in the lower portion of the existing healed laparotomy incision. Local anesthetic was used to the level of skin and subcutaneous layer. Careful blunt and cautery dissection were then utilized to dissect directly downward on the superior margin of the pubic symphysis. There was extensive scar tissue and adhesion. A plane was, however, developed to a point where the anterior bladder wall could be palpated and visualized. The abdominal contents proper were reflected superiorly within and intact peritoneal membrane. The Lowsley retractor was then introduced into the lower urinary tract and was directed anteriorly. The tip of the Lowsley retractor was then brought into contact with the index finger of the left hand with only the anterior bladder wall intervening between the finger and the tip of the Lowsley retractor. A tiny cystotomy was then created over the tip of the Lowsley retractor and the Lowsley retractor was advanced forward and anteriorly. Local anesthetic was then used to infiltrate the skin and subcutaneous tissues just to the left of the midline access incision. A small stab incision was made here. The 20 [place] Andres catheter was then brought through that stab incision and then advanced into the jaws of the Lowsley retractor La Z tract was then closed and withdrawn bringing the catheter did well down into the urethra proper. The Lowsley was disengaged and removed off the tip of the Andres catheter. Now the Andres catheter was gently retracted while following that with the panendoscope once the tip of the Andres was position within bladder lumen proper the balloon was inflated to 10 cc under direct visualization. The panendoscope was then removed. The midline incision was then closed with a running intermittently locking 2 0 PDS. The subcutaneous layer was closed using a running technique of the same suture. Finally the skin was reapproximated with a running subcuticular 4 0 Monocryl. The suprapubic catheter was secured in place level of skin using 2 0 silk and employing a and all method. A thin strip of Telfa was then fashioned in applied to the midline incision and an op site dressing was applied over it drain sponges were then fashioned out of 4 x 4 gauze and these were applied at the catheter exit site number then 6 and was then secured in place with paper tape. The patient was then repositioned in supine, was awakened, and transferred to [facility] in stable condition. Complications: none Post-operative Condition: stable Disposition: PACU Plan for aftercare: Discharge home
[2020-02-20 12:42] VITALS: BP 133/61; PULSE 69; RESP 12; TEMP 36.7; O2SAT 93
[2020-02-20 12:47] VITALS: BP 125/59; PULSE 64; RESP 10; O2SAT 93
[2020-02-20 12:53] VITALS: BP 132/56; PULSE 65; RESP 13; O2SAT 93
--- NOTE | 2020-02-20 12:54 | SUR.PHASEI ---
received to PACU at 1242 after general anesthesia. Airway patent, self maintained. Report from EVANGELISTA Kim and Dr Waite.
[2020-02-20 12:57] VITALS: BP 134/62; PULSE 67; RESP 13; O2SAT 95
[2020-02-20 13:02] VITALS: BP 123/47; PULSE 66; RESP 12; TEMP 36.7; O2SAT 96
--- NOTE | 2020-02-20 14:23 | SUR.PHASEII ---
pt left with suprapubic catheter. Leg bag applied. Pt had bermeo at home so has multiple supplies there. Some clots and leakage from meatus of penis. peripad applied. Pull ups given to pt to wear home. pt comfortable with changing bermeo bags. Rx sent to pt's pharmacy. left in w/c to car with his .
== END 2020-02-20 13:50 | disposition home or self-care (01) ==
PROVIDERS: PCP Nurse Practitioner Family; Referring Provider Specialist; Visit Provider Specialist
PROC: 0T9B30Z Drainage of Bladder with Drainage Device, Percutaneous Approach (ICD-10-PCS; CPT 51102; principal; 2020-02-20 10:45)
DX: R33.9 Retention of urine, unspecified (principal); N32.0 Bladder-neck obstruction; I25.10 Atherosclerotic heart disease of native coronary artery without angina pectoris; K21.9 Gastro-esophageal reflux disease without esophagitis; I10 Essential (primary) hypertension; E78.5 Hyperlipidemia, unspecified
CPT/HCPCS: 51040; C9290; J0131; J2704; J3010

== ENCOUNTER → 2020-04-08 11:53 | Outpatient (CLI) | payer MEDICARE, OTHER, SELFPAY ==
[2020-03-15 15:48] VITALS: BMI 27.8
== END ==
PROVIDERS: PCP Nurse Practitioner Family; Visit Provider Specialist
DX: N39.0 Urinary tract infection, site not specified (principal); N32.0 Bladder-neck obstruction; N39.45 Continuous leakage
CPT/HCPCS: 51702; 87077; 87086; 87147; 87186; 99214